=== PATIENT | male | born 1960 | race Caucasian/White ===

== ENCOUNTER 2024-02-16 15:08 | Outpatient (OUT) | payer MEDICARE, SELFPAY ==
--- NOTE | 2024-02-16 | CT_ITS ---
[address] [address] Patient Name: FELECIA BASS MRN: [id number] date: 1960 Sex: M Assigned Patient Location: CT Current Patient Location: CT Accession/Order Number: [id number] Exam Date: 02/16/2024 15:23 Report Date: 02/16/2024 16:46 At the request of: JULIETTE MILNER Procedure: CT lung screening low-dose EXAMINATION: CT lung screening low-dose HISTORY: F17.210 Previous smoker COMPARISON: / TECHNIQUE: Axial, Coronal, and Sagittal images were created without the administration of IV contrast material. Dose reduction techniques were achieved by using automated exposure control and/or adjustment of mA and/or kV according to patient size and/or use of iterative reconstruction technique. FINDINGS: LUNGS: Moderate diffuse peribronchial thickening. Stable biapical pleural parenchymal scarring. Stable scattered subcentimeter pulmonary nodules. Again demonstrated is a spiculated soft tissue density nodule extending from the right posterior pleura along the major fissure measuring 3.1 x 1.5 cm in axial image #77. PLEURA: No mass, effusion, or pneumothorax. VASCULATURE: No abnormality. LAURENT: No mass or pathologic adenopathy. MEDIASTINUM: No mass or pathologic adenopathy. CARDIAC: No enlargement or pericardial effusion CORONARY ARTERIES: Coronary calcifications are mild. AORTA: No aneurysm or dissection. CHEST WALL: No mass or axillary adenopathy BONES: Bilateral humeral head avascular necrosis LIMITED ABDOMEN: No suspicious findings. Limited images of the upper abdomen. OTHER: Negative. CT/CT lung screening low-dose IMPRESSION: LUNG SCREENING: Lung-RADS Category 2- Benign Appearance or Behavior. Nodules with a very low likelihood of becoming a clinically active cancer due to size or lack of growth. 2. Continue annual screening with LDCT in 12 months. Electronically authenticated by: MARSHA MCMILLAN Date: 02/16/2024 16:46
== END 2024-02-16 15:09 | disposition home or self-care (01) ==
LOC: CT 15:11
PROVIDERS: PCP Family Medicine; Visit Provider Family Medicine
DX: F17.210 Nicotine dependence, cigarettes, uncomplicated (principal)
CPT/HCPCS: 71271

== ENCOUNTER 2024-05-18 12:46 | Outpatient (OUT) | payer MEDICARE, SELFPAY ==
--- NOTE | 2024-05-18 12:56 | US_ITS ---
The [address] [address] Patient Name: FELECIA BASS MRN: [id number] date: 1960 Sex: M Assigned Patient Location: US Current Patient Location: Accession/Order Number: [id number] Exam Date: 05/18/2024 13:09 Report Date: 05/18/2024 15:06 At the request of: JULIETTE MILNER Procedure: US aorta CLINICAL DATA: Screening. PROCEDURE: Duplex Ultrasound of the Abdominal Aorta TECHNIQUE: Grayscale, color doppler, and spectral waveform analysis was performed COMPARISON: None. FINDINGS: Color flow was seen in the abdominal aorta. The waveform was multiphasic. Measurements as follows: Proximal Aorta: 2.7 x 2.8 cm. Mid Aorta: 2.8 x 2.2 cm. Distal Aorta: 2.5 x 2.0 cm. No iliac artery aneurysm was seen. US/US aorta IMPRESSION: No abdominal aortic aneurysm. Electronically authenticated by: Johnny ROJAS Date: 05/18/2024 15:06
--- OUTSIDE RECORDS SUMMARY | 2024-05-18 12:59 | XMS_ITS | CCD ---
Author Organization [facility] Care Team Providers Care Slip Presser Name Role Phone KRISSY JOHNSTON Attending Unavailable WEST, DR MARSHA Eli Consulting Unavailable FURLONG, DR SKIP [facility] Unavailable KRISSY JOHNSTON Admitting Unavailable KRISSY JOHNSTON Consulting Unavailable Furlong Skip NAYAK Primary Care Provider SKIP NAVAS Referring Unavailable FURLONG, SKIP [facility] Unavailable ROYA SESAY Referring Unavailable FURLONG, SKIP [facility] Unavailable FURLONG, SKIP [place] Attending Unavailable FURLONG, SKIP [place] Referring Unavailable FURLONG, SKIP [facility] Unavailable ROYA SESAY Attending Unavailable FURLONG, SKIP [place] Referring Unavailable FURLONG, SKIP [facility] Unavailable FURLONG, SKIP [place] Attending Unavailable FURLONG, SKIP [place] Referring Unavailable FURLONG, SKIP [place] Primary [facility] Unavailable FURLONG, SKIP [place] Attending Unavailable FURLONG, SKIP [place] Referring Unavailable FURLONG, SKIP [facility] Primary [facility] Unavailable FURLONG, SKIP [place] Attending Unavailable FURLONG, SKIP [place] Referring Unavailable FURLONG, SKIP G Primary Care Unavailable Medications Current Medications Medication Drug Class(es) Dates Sig (Normalized) Sig (Original) [id number] 200 actuat albuterol 0.09 mg/actuat metered dose inhaler (7 sources) beta2-Adrenergic Agonist Start: 09-12-2023 End: 11-10-2023 take 2 puff(s) by mouth every four hours as needed for wheezing VENTOLIN HFA 90 mcg/actuation inhaler Indications: Pulmonary emphysema, unspecified emphysema type ([facility]) INHALE 2 PUFFS BY MOUTH EVERY 4 HOURS NEEDED FOR WHEEZING FOR SHORTNESS OF BREATH 18 g 1 11/10/2023 Active ALPRAZolam 0.5 mg oral tablet (8 sources) Benzodiazepine Start: 07-30-2023 End: 12-02-2023 take 1 tablet by mouth three times daily as needed for anxiety ALPRAZolam (XANAX) 0.5 mg tablet Indications: Anxiety TAKE 1 TABLET BY MOUTH THREE TIMES DAILY NEEDED FOR ANXIETY 30 tablet 1 12/02/2023 Active aspirin 81 mg delayed release oral tablet (6 sources) Platelet Aggregation Inhibitor, Nonsteroidal Anti-inflammatory Drug take 1 tablet by mouth in the morning aspirin 81 mg Take 1 tablet (81 mg total) by mouth in the morning. 0 Active atorvastatin 40 mg oral tablet (6 sources) HMG-CoA Reductase Inhibitor Start: 11-11-2023 take 1 tablet by mouth in the morning atorvastatin (LIPITOR) 40 mg tablet Indications: Coronary arteriosclerosis Take 1 tablet (40 mg total) by mouth in the morning. 30 tablet 11 11/11/2023 Active Start: 07-16-2022 End: 11-10-2023 take 1 tablet by mouth in the morning atorvastatin (LIPITOR) 10 mg tablet Take 1 tablet (10 mg total) by mouth in the morning. 30 tablet 11 07/16/2022 11/10/2023 Discontinued (Patient Never Started This Medication) famciclovir 250 mg oral tablet (4 sources) Herpes Simplex Virus Nucleoside Analog DNA Polymerase Inhibitor Start: 11-10-2023 take 1 tablet by mouth in the morning, then take 1 tablet by mouth at bedtime famciclovir (FAMVIR) 250 mg tablet Indications: Herpes simplex Take 1 tablet (250 mg total) by mouth in the morning and 1 tablet (250 mg total) before bedtime. 0 11/10/2023 Active fluticasone-umeclid in-vilanter (TRELEGY ELLIPTA) 200-62.5-25 mcg blister with device (4 sources) Start: 11-10-2023 take 1 puff(s) by inhalation in the morning fluticasone-umecli din-vilanter (TRELEGY ELLIPTA) 200-62.5-25 mcg blister with device Indications: Pulmonary emphysema, unspecified emphysema type (CMS-HCC) Inhale 1 puff in the morning. 1 each 5 11/10/2023 Active traZODone hydrochloride 100 mg oral tablet (7 sources) Serotonin Reuptake Inhibitor Start: 07-30-2023 End: 11-02-2023 take 1 tablet by mouth once daily traZODone (DESYREL) 100 mg tablet Take 1 tablet by mouth nightly 30 tablet 2 11/02/2023 Active Completed/Discontinued Medications Medication Drug Class(es) Dates Sig (Normalized) Sig (Original) 30 actuat fluticasone furoate 0.1 mg/actuat / umeclidinium 0.0625 mg/actuat / vilanterol 0.025 mg/actuat dry powder inhaler (3 sources) Anticholinergic, Corticosteroid, beta2-Adrenergic Agonist Start: 08-09-2023 End: 11-10-2023 take 1 puff(s) by inhalation in the morning TRELEGY ELLIPTA 100-62.5-25 mcg blister with device Inhale 1 puff in the morning. 1 each 5 08/09/2023 11/10/2023 Discontinued (Dose adjustment) Problems Active Problems Problem Classification Problem Date Documented Date Episodic/Chronic Anxiety disorders (10 sources) Anxiety; Translations: [Anxiety disorder, unspecified] Onset: 07-12-2022 10-03-2023 Chronic Chronic obstructive pulmonary disease and bronchiectasis (10 sources) Pulmonary emphysema; Translations: [Emphysema, unspecified] Onset: 07-13-2022 01-24-2023 Chronic Coronary atherosclerosis and other heart disease (10 sources) Coronary arteriosclerosis; Translations: [Atherosclerotic heart disease of [place] coronary artery without angina pectoris] Onset: 10-13-2022 10-13-2022 Chronic Other lower respiratory disease (4 sources) Lung mass; Translations: [Other nonspecific abnormal finding of lung field] Onset: 11-10-2023 11-10-2023 Episodic Other screening for suspected conditions (not mental disorders or infectious disease) (5 sources) Encounter for screening for malignant neoplasm of respiratory organs; Translations: [Encounter for screening for cardiovascular disorders] Onset: 01-26-2023 Episodic Screening and history of mental health and substance abuse codes (1 source) Encounter for screening for depression; Translations: [Encounter for screening for depression] Onset: 05-10-2024 Episodic Substance-related disorders (9 sources) Nicotine dependence, cigarettes, uncomplicated; Translations: [Nicotine dependence] Onset: 07-13-2022 10-13-2022 Chronic Unclassified (2 sources) Supraventricular tachycardia, unspecified; Translations: [Supraventricular tachycardia, unspecified] Onset: 11-10-2023 Unclassified (1 source) Annual Exam Onset: 05-10-2024 Unclassified (1 source) 3 Month follow up Onset: 02-09-2024 Unclassified (1 source) Suspicious Skin Lesion Onset: 11-29-2023 Past or Other Problems Problem Classification Problem Date Documented Da te Episodic/Chronic Cardiac dysrhythmias (11 sources) Supraventricular tachycardia; Translations: [SVT (supraventricular tachycardia)] Onset: 2 Resolved: 4 07-12-2022 Chronic Mood disorders (6 sources) Mood disorders Onset: 3 Resolved: 4 08-09-2023 Neoplasms of unspecified nature or uncertain behavior (3 sources) Neoplasm of uncertain behavior of skin; Translations: [Neoplasm of uncertain behavior of skin] Onset: 4 11-10-2023 Episodic Phlebitis; thrombophlebitis and thromboembolism (4 sources) Deep venous thrombosis; Translations: [Acute embolism and thrombosis of unspecified deep veins of unspecified lower extremity] Onset: 4 Resolved: 4 11-10-2023 Episodic Pulmonary heart disease (6 sources) Acute pulmonary embolism; Translations: [Other pulmonary embolism without acute cor pulmonale] Onset: 4 Resolved: 4 11-10-2023 Episodic Residual codes; unclassified (6 sources) Persistent insomnia; Translations: [Insomnia, unspecified] Onset: 2 07-12-2022 Episodic Residual codes; unclassified (6 sources) Lung cancer screening declined; Translations: [Procedure and treatment not carried out because of patient's decision for unspecified reasons] Onset: 3 Resolved: 4 10-13-2022 Episodic Residual codes; unclassified (1 source) Insomnia, unspecified; Translations: [Insomnia, unspecified] Onset: 2 Episodic Unclassified (6 sources) Onset: 3 12-30-2022 Viral infection (7 sources) Herpes simplex; Translations: [Herpesviral infection, unspecified] Onset: 3 10-13-2022 Episodic Results Test Name Value Interpretation Reference Range Facility Surgical Pathologyon 024 Surgical Pathology Normal [facility] Comment on above: Result Comment: [facility] [address] [place] [address] Surgical Pathology Consultation Patient Name:FELECIA CUNHA:1960 (Age: 63)Gender:MTaken:11/29/2023eported:12/06/2023hysician(s):James Sesay MD ([phone])Copy To: Rec. #:[id number]: #[id number] Final Pathologic Diagnosis Left buttock: Traumatized seborrheic keratosis and granulation tissue. Clinical correlation is indicated. NOTE: The above diagnosis is from [facility]. Please see the complete text of their report in the patient???s electronic medical record. Report Electronically Signed Out [facility]/12/06/2023Roxy Harvey MD Interpretation performed at [facility], [address] [place] [address], License number: [id number]. Clinical History Neoplasm of uncertain behavior of skin D48.5. Left buttock skin lesion. Gross Description Received in formalin labeled SHELIA, left buttock skin lesion is a hong-nunn to purple, wrinkled, unoriented ellipse of skin, 1.4 x 0.7 cm, excised to a depth of 0.5 cm. Eccentrically located on the skin is a hong-nunn, crusted raised lesion, 0.4 x 0.3 x 0.2 cm that is situated 0.2 cm from the closest margin. One half of the specimen is inked orange with the opposing half inked black. Serial sections reveal hong-nunn, fibrous, dull and uniform cut surfaces with the deep margin situated 0.5 cm from the skin lesion. The polar tips are submitted intact in cassette A with the remainder of the specimen submitted in cassette B???C. (3, ns, [id number], A???C, m2) BRIDGER smith/11/30/2023EAK Specimen(s) Received Left buttock Fee Codes(s): 1; 81775 Comprehensive metabolic pane donato 11-11-2023 Albumin [Mass/Vol] 3.7 g/dL 3.2 - 5.3 g/dL Pr [facility] ALP [Catalytic activity/Vol] 115 U/L 39 - 130 U/L [facility] ALT No additional P-5'-P [Catalytic activity/Vol] 10 U/L 0 - 40 U/L [facility] Anion gap [Moles/Vol] 5 mmol/L 5 - 15 mmol/L [facility] AST [Catalytic activity/Vol] 14 U/L 0 - 41 U/L [facility] Bilirubin [Mass/Vol] 0.5 mg/dL 0.3 - 1 .2 mg/dL [facility] Calcium [Mass/Vol] 8.7 mg/dL 8.5 - 10. 5 mg/dL [facility] Chloride [Moles/Vol] 104 mmol/L 98 - 10 9 mmol/L [facility] CO2 [Moles/Vol] 30 mmol/L 22 - 32 mmol/L [facility] Creatinine [Mass/Vol] 0.92 mg/dL 0.60 - 1.30 mg/dL [facility] Comment on above: METHOD TRACEABLE TO [facility] STANDARD eGFR (CKD-EPI)non-race dependent - PINF [facility] Comment on above: Reported eGFR is based on the CKD-EPI 2020 equation that does not use a race coefficient. Glucose [Mass/Vol] 93 mg/dL 65 - 99 mg/dL [facility] Potassium [Moles/Vol] 4.4 mmol/L 3.5 - 5.0 mmol/L [facility] Protein [Mass/Vol] 6.8 g/dL 6.0 - 8.0 g/dL Pr [facility] Sodium [Moles/Vol] 139 mmol/L 134 - 146 mmol/L [facility] Urea nitrogen [Mass/Vol] 11 mg/dL 5 - 27 mg/dL [facility] Lipid 1996 panelon Cholesterol [Mass/Vol] 134 mg/dL Low 150 - 200 mg/dL [facility] Cholesterol in HDL [Mass/Vol] 38 mg/dL Low 39 - PINF mg/dL [facility] Comment on above: HDL <40 mg/dL - High Risk HDL > or = 40mg/dL- Desirable HDL >60 mg/dL - Negative Risk Cholesterol in LDL [Mass/Vol] 67 mg/dL NINF - 130 mg/dL [facility] Comment on above: LDL <100 mg/dL - Desirable LDL >160 mg/dL - High Risk Cholesterol in VLDL [Mass/Vol] 29 mg/dL 0 - 30 mg/dL [facility] Cholesterol.total/Ch olesterol in HDL [Mass ratio] 3.5 {ratio} 1.0 - 5.0 [facility] Interpretation and review of laboratory results Abnormal [facility] Triglyceride [Mass/Vol] 146 mg/dL 27 - 150 mg/dL [facility] No Panel Informationon 11-11 [facility] COMPREHENSIVE METABOLIC PANE Donato 11-10-2023 Albumin [Mass/Vol] 3.7 g/dL Normal 3.2-5.3 [facility] Comment on above: Performed By: #### Amadou CALLAHAN, 35675-5 #### [facility] ([id number]) [address], [address] [place] [address] ALP [Catalytic activity/Vol] 115 U/L Normal 39-130 [facility] Comment on above: Performed By: #### Amadou CALLAHAN, 00806-4 #### [facility] ([id number]) [address], [address] [place] [address] ALT [Catalytic activity/Vol] 10 U/L Normal 0-40 [facility] Comment on above: Performed By: #### Amadou CALLAHAN, 18600-8 #### [facility] ([id number]) [address] [place] [address] Anion gap [Moles/Vol] 5 mmol/L Normal 5-15 [facility] Comment on above: Performed By: #### Amadou CALLAHAN, 85781-5 #### [facility] ([id number]) [address] [place] [address] AST [Catalytic activity/Vol] 14 U/L Normal 0-41 [facility] Comment on above: Performed By: #### Amadou CALLAHAN, 71494-0 #### [facility] ([id number]) [address], [address] [place] [address] Bilirubin [Mass/Vol] 0.5 mg/dL Normal 0.3-1.2 [facility] Comment on above: Performed By: #### Amadou CALLAHAN, 12185-8 #### [facility] ([id number]) [address] [place] [address] Calcium [Mass/Vol] 8.7 mg/dL Normal 8.5-10.5 [facility] Comment on above: Performed By: #### Amadou CALLAHAN, 09326-7 #### [facility] ([id number]) [address], [address] [place] [address] Chloride [Moles/Vol] 104 mmol/L Normal 98-109 [facility] Comment on above: Performed By: #### Amadou CALLAHAN, 39679-8 #### [facility] ([id number]) [address], [address] [place] [address] CO2 [Moles/Vol] 30 mmol/L Normal 22-32 [facility] Comment on above: Performed By: #### Amadou CALLAHAN, 57792-3 #### [facility] ([id number]) [address] [place] [address] Creatinine [Mass/Vol] 0.92 mg/dL Normal 0.60-1.30 [facility] Comment on above: Result Comment: METH OD TRACEABLE TO IDMS STANDARD Performed By: #### Amadou CALLAHAN, 63788-2 #### [facility] ([id number]) [address], [address] [place] [address] eGFR (CKD-EPI) NON-RACE DEPENDENT >90 Normal >59 [facility] Comment on above: Result Comment: Reported eGFR is based on the CKD-EPI 2020 equation that does not use a race coefficient. Performed By: #### Amadou CALLAHAN, 66870-5 #### [facility] ([id number]) [address], [address] [place] [address] Glucose [Mass/Vol] 93 mg/dL Normal 65-99 [facility] Comment on above: Performed By: #### Amadou CALLAHAN, 43122-4 #### [facility] ([id number]) [address] [place] [address] Potassium [Moles/Vol] 4.4 mmol/L Normal 3.5-5.0 [facility] Comment on above: Performed By: #### Amadou CALLAHAN, 34324-8 #### [facility] ([id number]) [address], [address] [place] [address] Protein [Mass/Vol] 6.8 g/dL Normal 6.0-8.0 [facility] Comment on above: Performed By: #### Amadou CALLAHAN, 50362-8 #### [facility] ([id number]) [address] [place] [address] Sodium [Moles/Vol] 139 mmol/L Normal 134-146 [facility] Comment on above: Performed By: #### Amadou CALLAHAN, 09135-4 #### [facility] ([id number]) [address], [address] [place] [address] Urea nitrogen [Mass/Vol] 11 mg/dL Normal 5-27 [facility] Comment on above: Performed By: #### C LONDON, 35285-6 #### [facility] ([id number]) [address], [address] [place] [address] Lipid 1996 panelon 4 Cholesterol [Mass/Vol] 134 mg/dL Low 150-200 [facility] Comment on above: Performed By: #### Amadou CALLAHAN, 52150-3 #### [facility] ([id number]) [address], [address] [place] [address] Cholesterol in HDL [Mass/Vol] 38 mg/dL Low >39 [facility] Comment on above: Result Comment: HDL <40 mg/dL - High Risk HDL > or = 40mg/dL- Desirable HDL >60 mg/dL - Negative Risk Performed By: #### Amadou CALLAHAN, 69214-9 #### [facility] ([id number]) [address], [address] [place] [address] Cholesterol in LDL [Mass/Vol] 67 mg/dL Normal <130 [facility] Comment on above: Result Comment: LDL <100 mg/dL - Desirable LDL >160 mg/dL - High Risk Performed By: #### Amadou CALLAHAN, 84220-5 #### [facility] ([id number]) [address], [address] [place] [address] Cholesterol in VLDL [Mass/Vol] 29 mg/dL Normal 0-30 [facility] Comment on above: Performed By: #### Amadou CALLAHAN, 35803-0 #### [facility] ([id number]) [address], [address] [place] [address] CHOLESTEROL:HDL 3.5 Normal 1.0-5.0 [facility] Comment on above: Performed By: #### C LONDON, 04557-3 #### [facility] ([id number]) [address], [address] [place] [address] Triglyceride [Mass/Vol] 146 mg/dL Normal 27-150 [facility] Comment on above: Performed By: #### C LONDON, 17785-7 #### [facility] ([id number]) [address], [address] [place] [address] CT LUNG CANCER SCREENINGon 0 01-27-2023 CT LUNG CANCER SCREENING EXAMINATION: CT LUNG CANCER SCREENING HISTORY: Screening for malignant neoplasm of respiratory tract COMPARISON: No relevant comparison available. TECHNIQUE: Axial, Coronal, and Sagittal images were created without the administration of IV contrast material. Dose reduction techniques were achieved by using automated exposure control and/or adjustment of mA and/or kV according to patient size and/or use of iterative reconstruction technique. FINDINGS: LUNGS: Stable diffuse mild peribronchial thickening. Biapical pleural parenchymal opacities likely scarring. Again demonstrated is a wedge-shaped area of soft tissue attenuation in the right upper lobe marginating the major fissure stable both in size and configuration from the prior exam. Additional punctate pulmonary nodules are stable the largest 5 mm left upper lobe. No new pulmonary nodule or mass PLEURA: No mass, effusion, or pneumothorax. VASCULATURE: No abnormality. LAURENT: No mass or pathologic adenopathy. MEDIASTINUM: No mass or pathologic adenopathy. CARDIAC: No enlargement or pericardial effusion. Mild coronary atherosclerosis AORTA: No aneurysm or dissection. CHEST WALL: No mass or axillary adenopathy BONES: No bone lesion or fracture. LIMITED ABDOMEN: No suspicious findings. Limited images of the upper abdomen. OTHER: Negative. IMPRESSION: LUNG SCREENING: Lung-RADS Category 2- Benign Appearance or Behavior. Nodules with a very low likelihood of becoming a clinically active cancer due to size or lack of growth. 2. Continue annual screening with LDCT in 12 months. Electronically authenticated by: MARSHA MCMILLAN Date: 2023-01-27 07:50 Normal [facility] Vital Signs Date Time Vital Sign Value Performing Clinician Monae banks 11-10-2023 13:49-0500 Body height 180.3 cm Skip Navas DO [facility] 11-10-2023 13:49-0500 Body mass index (BMI) [Ratio] 21.35 kg/m2 [employer] DO Work Phone: [facility] 11-10-2023 13:49-0500 Body temperature 98.2 [degF] Skip [employer] Work Phone[facility] 11-10-2023 13:49-0500 Body weight 69.45 kg [employer]Kabbee Work Phone: [facility] 11-10-2023 13:49-0500 Diastolic blood pressure 60 mm[Hg] Skip [employer] Work [facility] 11-10-2023 13:49-0500 Heart rate 78 /min SkipKabbee Work Phone: [facility] [employer] 11-10-2023 13:49-0500 SaO2% (BldA) [Mass fraction] 94 % [employer]ab[employer] Work Phone: [facility] 11-10-2023 13:49-0500 Systolic blood pressure 98 mm[Hg] [employer]Kabbee Work Phone: [facility] [employer] [facility] Encounters Encounter Date Encounter Type Care Provider Facility Start: 05-10-2024 End: 05-10-2024 ambulatory [facility] Start: 05-10-2024 Encounter for genera l adult medical examination without abnormal findings [facility] Start: 02-09-2024 End: 02-09-2024 ambulatory [facility] Start: 12-07-2023 [facility] Start: 12-02-2023 Refill Hue Lombardi [facility] Comment on above: Anxiety Start: 11-29-2023 End: 11-30-2023 ambulatory [facility] Start: 11-29-2023 End: 11-29-2023 ambulatory [facility] Start: 11-16-2023 End: 11-17-2023 ambulatory [facility] Start: 11-11-2023 Orders Only Skip mariano DO Work Phone[facility] Comment on above: Coronary arterioscle rosis (Primary Dx) Start: 11-10-2023 End: 11-10-2023 Office outpatient visit 25 minutes Skip Navas DO Work Phone: [facility] Comment on above: Pulmonary emphysema, unspecified emphysema type (CMS-HCC) (Primary Dx); Anxiety; Other acute pulmonary embolism, unspecified whether acute cor pulmonale present ([facility]); Supraventricular tachycardia; Coronary arteriosclerosis; Cigarette smoker; Neoplasm of uncertain behavior of skin; Herpes simplex Start: 11-10-2023 End: 11-11-2023 ambulatory [facility] Start: 11-02-2023 Refill Skip mariano DO Work Phone[facility] Start: 10-03-2023 Refill Hue Lombardi CMA [facility] - [facility] Medicine Comment on above: Anxiety Start: 01-26-2023 End: 01-27-2023 ambulatory KRISSY JOHNSTON Facility:[facility]1 Procedures Date Procedure Procedure Detail Performing Clinician Start: 11-10-2023 Adult depression screening assessment Skip Navas DO Work Phone: Start: 08-09-2023 Adult depression screening assessment Hue Lombardi CMA Plan of Treatment Date Care Activity Detail Author Start: 04-27-2033 DTaP,Tdap and Td Vaccines (2 - Td or Tdap) DTaP,Tdap and Td Vaccines (2 - Td or Tdap) [facility] Start: 07-09-2025 Screening for malign ant neoplasm of colon Colon Cancer Screening 3 Year Cologuard [facility] Start: 05-10-2025 Tobacco Counseling Tobacco Counselin g [facility] Start: 02-06-2025 Tobacco Counseling Tobacco Counselin g [facility] Start: 2024 Adult BMI Screening Adult BMI Screen ing [facility] Start: 2024 Tobacco Screening Tobacco Screening [facility] Start: 11-10-2024 Adult BMI Screening Adult BMI Screen ing [facility] Start: 11-10-2024 Depression Screening Depression Scre ening [facility] Start: 11-10-2024 Tobacco Screening Tobacco Screening [facility] Start: 08-09-2024 Adult BMI Screening Adult BMI Screen ing [facility] Start: 08-09-2024 Depression Screening Depression Scre ening [facility] Start: 08-09-2024 Fall Risk Screening Fall Risk Screen ing [facility] Start: 08-09-2024 Tobacco Screening Tobacco Screening [facility] Start: 02-09-2024 End: 02-09-2024 Patient encounter procedure 02/09/2024 1:30 PM EDT Office Visit [facility] Internal Medicine - Family Medicine [address] [place] [address] Skip Navas, DO [address] [facility] [place] [address] [facility] - Family Medicine Start: 12-31-2023 Medicare Annual Well ness Visit Medicare Annual Wellness Visit [facility] Start: 11-29-2023 End: 11-29-2023 Patient encounter procedure 11/29/2023 10:30 AM EST Office Visit [facility] General [facility] [address] [place] [address] Roya Sesay MD [address] [place] [address] [facility] Start: 11-16-2023 End: 11-16-2023 Patient encounter procedure 11/16/2023 9:30 AM EST Appointment [facility] - Pulmonary Function [address] [place] [address] Skip Navas DO [address] [place] [address] [facility] - Pulmonary Function Start: 11-10-2023 End: 11-10-2023 Patient encounter procedure 11/10/2023 1:30 PM EST [facility] - Family Medicine [address] [place] [address] Skip Navas DO [address] [facility] [place] [address] [facility] - [facility] Medicine Start: 05-27-2023 COVID-19 Vaccine () COVID-19 Vaccine () [facility] Start: 05-27-2023 Influenza vaccination Influenza Vacc ine [facility] Start: 01-31-2021 COVID-19 Vaccine (3 - Pfizer risk series) COVID-19 Vaccine (3 - Pfizer risk series) [facility] End: 11-10-2024 Pulmonary function test Complete PFT w/ BD (Spirometry (Flow Volume Loop) pre/post short acting bronchodilator w/ DLCO (diffusion study) and Lung Volume) Pulmonary function test Complete PFT w/ BD (Spirometry (Flow Volume Loop) pre/post short acting bronchodilator w/ DLCO (diffusion study) and Lung Volume) PFT Routine Pulmonary emphysema, unspecified emphysema type ([facility]) 1 Occurrences starting 11/10/2023 until 11/10/2024 [facility] Work Phone: Comment on above: 1 Occurrences starti ng 11/10/2023 until 11/10/2024 Immunizations Immunization Date Immunization Notes Care Provider Fa cility 06-30-2023 zoster vaccine recombinant Skip Navas DO Work Phone: [facility] 04-27-2023 tetanus toxoid, redu ray diphtheria toxoid, and acellular pertussis vaccine, adsorbed Skip Navas DO Work Phone: [facility] 04-13-2023 zoster vaccine recombinant Skip Navas DO Work Phone: [facility] 03-26-2023 Pneumococcal Conjuga te 20-valent Skip Navas DO Work Phone: [facility] 06-16-2020 influenza, injectabl e, quadrivalent, preservative free [facility] Work Phone: 06-16-2020 influenza virus vaccine, unspecified formulation [facility] 08-30-2019 Seasonal, quadrivale nt, recombinant, injectable influenza vaccine, preservative free [facility] 07-06-2016 influenza, injectabl e, quadrivalent, preservative free [facility] 08-07-2015 influenza, injectabl e, quadrivalent, preservative free [facility] 09-15-2009 novel [id number], preservative-free, injectable [facility] Payers Date Payer Category Payer Medicare [employer] MEDICARE [facility] MEDICARE ADVANTAGE [id number] 2022-Present [phone] [address] [place] [address] [id number] 1961 Unknown [id number] 1960 Unknown [id number] 1960 Unknown [id number] 6 1960 Unknown [id number] 6 1960 Unknown [id number] 6 1960 Unknown [id number] 6 1960 Unknown [id number] 6 1960 Unknown [id number] 6 1960 Unknown [id number] 6 Social History Date Type Detail Facility Start: 10-13-2022 Tobacco smoking stat [facility] Smokes tobacco daily [facility] History of tobacco use Cigarette Smoker [facility] Start: 10-13-2022 End: 11-29-2023 Cigarettes smoked current (pack per day) - Reported 1 [facility] Start: 10-13-2022 Tobacco use and exposure Smoke less tobacco non-user [facility] Start: 08-09-2023 End: 11-29-2023 Alcohol intake Current drinker of alcohol (finding) [facility] Start: 10-13-2022 End: 11-29-2023 Social connection and isolation panel [facility] Do you belong to any clubs or organizations such as buddhism groups, unions, fraternal or athletic groups, or school groups? No [facility] Are you now , , , , never or living with a partner? [facility] How often to you hav e a drink containing alcohol? 4 or more times a week [facility] How many standard dr inks containing alcohol do you have on a typical day? 1 or 2 [facility] How often do you hav e 6 or more drinks on 1 occasion? Less than monthly [facility] How hard is it for y ou to pay for the very basics like food, housing, medical care, and heating Somewhat hard [facility] Adolescent depressio n screening assessment 0 [facility] Do you feel stress - tense, restless, nervous, or anxious, or unable to sleep at night because your mind is troubled all the time - these days [OSQ] To some extent [facility] Start: 10-13-2022 Tobacco Comment Pt tried and f brent gum and patches [facility] Start: 1960 Sex Assigned At Not on file [facility] Clinical Notes 11-10-2023 to 12-07-2023 Telephone Encounter - Patricia Cardenas CMA - 12/07/2023 12:02 PM EDTTelephone Encounter - Patricia Cardenas, ABBY - 12/07/2023 12:02 PM EDTTelephone Encounter - Patricia Cardenas CMA - 12/07/2023 12:02 PM EDT Note Date & Type Note Facility 12-07-2023 Miscellaneous Notes ----- Message from Roya Sesay MD sent at 12/06/2023 6:33 PM EDT ----- Regarding: Pathology Please let patient know that lesion removed was benign seborrheic keratosis. Follow-up as needed. Thank you ----- Message ----- From: Maribel Ragland Sent: 12/06/2023 2:13 PM EDT To: Roya Sesay MD Spoke with patient regarding pathology results. Patient verbally understood with no further questions. documented in this encounter [facility] 12-07-2023 Telephone encounter Note ----- Message from Roya Sesay MD sent at 12/06/2023 6:33 PM EDT ----- Regarding: Pathology Please let patient know that lesion removed was benign seborrheic keratosis. Follow-up as needed. Thank you ----- Message ----- From: Maribel Ragland Sent: 12/06/2023 2:13 PM EDT To: Roya Sesay MD [facility] 12-07-2023 Telephone encounter Note Spoke with patient regarding pathology results. Patient verbally understood with no further questions. [facility] 11-10-2023 History of Presen t illness Narrative Subjective Patient ID: Felecia Cunha is a 62 y.o. male. Gregory presents today for recheck of multiple problems. He also has a new problem he would like to discuss. He needs a refill of his Ventolin inhaler. He is using it multiple times a day. Does provide relief. Used an 18 g canister in 1 month. He does not think he has ever had pulmonary function studies. He did have a spirometry her here which was abnormal in 2020. It showed severe obstruction with a positive response to a bronchodilator. He continues to smoke. He has tried various mjwf-nmr-xjfcfnt medications to stop like patches and lozenges but they were ineffective. He has a sore on his left buttock. It comes and goes. It breaks open and he puts Neosporin on it. It is tender. He is using Xanax once a day usually prior to bedtime. It helps with his sleep. He wakes up feeling more refreshed in the morning. He has not having any side effects. Is improving his quality of life. He would like to continue. COPD Primary symptoms: cough, dyspnea on exertion, shortness of breath, sputum production and wheezing Primary symptoms: no difficulty breathing, no dyspnea at rest and no hemoptysis Chronicity: Chronic Onset: More than 1 year ago Frequency: 2 to 4 times per day Progression since onset: Unchanged Severity: Severe Cough characteristics: productive of sputum Associated symptoms: no dyspnea at rest Alleviated by: Steroid inhaler, beta-agonist and anxiolytics Improvement on treatment: Significant Lung disease risks: Smoking/tobacco exposure PMH includes: COPD and smoker The following portions of the patient's history were reviewed and updated as appropriate: allergies, current medications, past family history, past medical history, past social history, past surgical history, problem list, and medication reconciliation was completed including current medication and post discharge medication. Review of Systems Respiratory: Positive for cough, sputum production, shortness of breath and wheezing. Negative for hemoptysis. Cardiovascular: Positive for dyspnea on exertion. Musculoskeletal: Negative. Skin: Positive for wound. Neurological: Negative. Psychiatric/Behavioral: Positive for sleep disturbance. Objective Physical Exam Lane Attendant present: declined. Constitutional: General: He is not in acute distress. Appearance: He is normal weight. HENT: Head: Normocephalic. Cardiovascular: Rate and Rhythm: Normal rate and regular rhythm. Pulses: Normal pulses. Heart sounds: Normal heart sounds. No murmur heard. Pulmonary: Effort: Pulmonary effort is normal. No respiratory distress. Breath sounds: No stridor. Wheezing present. No rhonchi or rales. Abdominal: General: Bowel sounds are normal. Palpations: Abdomen is soft. Musculoskeletal: Cervical back: Neck supple. Skin: Findings: Lesion (hard white nodule on left buttock, slightly tender) present. Neurological: General: No focal deficit present. Mental Status: He is alert and oriented to person, place, and time. Psychiatric: Attention and Perception: Attention normal. Mood and Affect: Mood and affect normal. Speech: Speech normal. Behavior: Behavior normal. Behavior is cooperative. Thought Content: Thought content normal. Cognition and Memory: Cognition normal. Judgment: Judgment normal. Assessment/Plan Felecia was seen today for copd. Diagnoses and all orders for this visit: Pulmonary emphysema, unspecified emphysema type ([facility]) - yyjpuirmgpn-hdizmmbfa-dhbegeze (TRELEGY ELLIPTA) 200-62.5-25 mcg blister with device; Inhale 1 puff in the morning. - VENTOLIN HFA 90 mcg/actuation inhaler; INHALE 2 PUFFS BY MOUTH EVERY 4 HOURS NEEDED FOR WHEEZING FOR SHORTNESS OF BREATH - Pulmonary function test Complete PFT w/ BD (Spirometry (Flow Volume Loop) pre/post short acting bronchodilator w/ DLCO (diffusion study) and Lung Volume); Future - albuterol (PROVENTIL,VENTOLIN) nebulizer solution 2.5 mg Patient is not under control with his COPD. I am going to increase his Trelegy to 200 mg 1 puff daily. Renew Ventolin inhaler. I am going to check formal PFTs in the hospital. Smoking cessation was strongly encouraged. Anxiety Doing well on Xanax 1 a day. He uses it mostly prior to bedtime. He has not having any side effects. It is providing improvement in quality of life and sleep. Continue current regimen. The OARRS/MAPPS database was reviewed today and found to be appropriate. No indication of medication diversion, or non compliance. Other acute pulmonary embolism, unspecified whether acute cor pulmonale present ([facility]) Stable. Supraventricular tachycardia - Comprehensive metabolic panel; Future No episodes since he had heart procedure years ago. Coronary arteriosclerosis - Cancel: Lipid panel; Future - Comprehensive metabolic panel; Future - Lipid panel; Future He never started the atorvastatin back in 2021. He should have been on high dose statin as he said he did have a heart attack in 2007. That is when he went on disability. He is not ever seen a misdraw hand since according to him. Continue aspirin. Check labs. Cigarette smoker Patient encouraged to quit smoking. We did discuss medications. There is a medication called Chantix available that is a prescription. We did discussed side effects. He defers the medication at this time. He has cut back to less than a pack a day on his own and wants to try to continue. At least 3 minute spent counseling. Neoplasm of uncertain behavior of skin - [facility] General Surgery - [place], [place]; Future Not clear what this lesion is but since it recurs and has been there for over a month then it should be removed. I will refer him to General surgery. Herpes simplex - famciclovir (FAMVIR) 250 mg tablet; Take 1 tablet (250 mg total) by mouth in the morning and 1 tablet (250 mg total) before bedtime. documented in this encounter [facility] 11-10-2023 Instructions Skip Navas DO - 11/10/2023 1:30 PM EST Are You Ready To Kick The Habit? Free Tobacco Cessation Resources [facility] Services [facility] Centers provide all employees with free tobacco cessation services that include: Counseling to understand nicotine addiction Education about medications that can help you successfully quit Assistance with developing a plan to quit Call to set up an individual appointment or find out when group classes will be held: [facility]: [phone] [facility]: [phone] [facility]: [phone] [facility]: [phone] Quit Smoking Action Plan and Resources [facility] offers an eight-week, online smoking cessation plan to all [facility] employees, regardless of whether [employer] is your medical insurance provider. Go to www.[employer]org/employeewell ness and click the Health Risk Assessment and Resources link to get started. In the [employer] menu, click Action Plans instead of Health Risk Assessment to access the Quit Smoking Action Plan. Additional smoking cessation resources are also available to all [facility] employees on the [employer] web page at www.I'mOK/quit smoking. [place] Tobacco Cessation Program If [employer] is your medical insurance provider, there are more free resources available to you, including: No copays or deductibles on local tobacco cessation counseling services to help you quit Prescription assistance for tobacco cessation medications to help you quit For details about the tobacco cessation program available to [employer] members, go to www.I'mOK (Search: Tobacco Cessation Program). [place] Tobacco Quit Line 5-185-BFUR-NOW ( ) is a toll-free, telephonic service that helps [place] residents quit smoking and using tobacco. It is staffed by experts who tailor a quit plan for you and provide you with advice. [place] Tobacco Quit Line 2-815-GWWF-NOW ( ) is a toll-free, telephonic service that helps [place] residents quit smoking and using tobacco. It is staffed by experts who tailor a quit plan for you and provide you with advice. Two weeks of nicotine replacement therapy may be provided at no charge, if needed. Additional Resources These national organizations also offer free information and resources to help you quit tobacco: [place] [employer]--www.cancer.org/healthy/ stayawayfromtobacco [place] [employer]--www.heart.org (Search: Quit Smoking) Centers for Disease Control and Prevention--www.cdc.gov/tobacco [place] [employer]--www.lungusa.org documented in this encounter [facility] Evaluation note Diagnosis Anxiety Anxiety state, unspecified documented in this encounter [facility]* Diagnosis Pulmonary emphysema, unspecified emphysema type ([facility])- Primary Anxiety Anxiety state, unspecified Other acute pulmonary embolism, unspecified whether acute cor pulmonale present ([facility]) Supraventricular tachycardia Other specified cardiac dysrhythmias Coronary arteriosclerosis Coronary atherosclerosis of unspecified type of vessel, [place] or graft Cigarette smoker Tobacco use disorder Neoplasm of uncertain behavior of skin Herpes simplex Herpes simplex without mention of complication documented in this encounter [facility]* Diagnosis Coronary arteriosclerosis- Primary Coronary atherosclerosis of unspecified type of vessel, [place] or graft documented in this encounter [facility]* Diagnosis Anxiety Anxiety state, unspecified documented in this encounter [facility] SystemInstructionsNot on filedocumented in this encounter [facility] System[facility]ructionsNot on filedocumented in this encounter [facility] SystemInstructionsNot on filedocumented in this encounter [facility] SystemInstructionsNot on filedocumented in this encounter [facility] SystemInstructionsNot on filedocumented in this encounter [facility] SystemReason for referral (narrative)* Consultation (Routine) - Pending Review Specialty Diagnoses / Procedures Referred By Sejal castorena Referred To Contact General Surgery Diagnoses Neoplasm of uncertain behavior of skin Skip Navas DO [address] [facility] [place] [address] [employer] [facility] Gen Surg Grillis Lázaro [address] [place] [address] Referral ID Status Reason Start Date Expiration Date Visits Requested Visits Authorized [id number] Pending Review Specialty Services Required 11/10/2023 11/09/2024 1 1 [facility] Summary Purpose Family History No Family History Records FoundNo Family History Records FoundNo Family History Records FoundNo Family History Records Found Advance Directives No Advanced Directives Records FoundNo Advanced Directives Records FoundNo Advanced Directives Records FoundNo Advanced Directives Records Found Additional Source Comments (unrecognized sect ion and content) No Status Records FoundNo Status Records FoundNo Status Records FoundNo Status Records Found INFORMATION SOURCE (unrecogn ized section and content) DATE CREATED AUTHOR 02/03/2023 [facility] DATE CREATED AUTHOR AUTHOR'S ORGANIZ ATION 11/12/2023 [facility] DATE CREATED AUTHOR AUTHOR'S ORGANIZ ATION 12/07/2023 [facility] DATE CREATED AUTHOR AUTHOR'S ORGANIZ ATION 05/12/2024 [facility] Reason for Visit (unrecogniz ed section and content) Reason Onset Date Comments Med Refill 10/03/2023 Reason Comments Med Refill Reason Comments COPD 3 month check Reason Onset Date Comments Med Refill 12/02/2023 Care Teams (unrecognized sec tion and content) Slip Presser Relationship Specialty Start Date End Date Skip Navas DO [address] [place] [address] PCP - General Family Medicine 07/12/22 Slip Presser Relationship Specialty Start Date End Date Skip Navas DO [address], [place] [address] PCP - General Family Medicine 07/12/22 Slip Presser Relationship Specialty Start Date End Date Skip Navas DO [address] [place] [address] PCP - General Family Medicine 07/12/22 Slip Presser Relationship Specialty Start Date End Date Skip Navas DO [address] [place] [address] PCP - General Family Medicine 07/12/22 Slip Presser Relationship Specialty Start Date End Date Skip Navas DO [address], [place] [address] PCP - General Family Medicine 07/12/22 Slip Presser Relationship Specialty Start Date End Date Skip Navas DO [address], [place] [address] PCP - General Family Medicine 07/12/22 FOR RECORDS PERTAINING TO PATIENTS WHO ARE OR HAVE BEEN ENROLLED IN A CHEMICAL DEPENDENCY/SUBSTANCEABUSE PROGRAM, SOME INFORMATION MAY BE OMITTED. This clinical summary was aggregated from multiple sources. Caution should be exercised in using it in the provision of clinical care. This summary normalizes information from multiple sources, and as a consequence, information in this document may materially change the coding, format and clinical context of patient data. In addition, data may be omitted in some cases. CLINICAL DECISIONS SHOULD BE BASED ON THE PRIMARY CLINICAL RECORDS. [employer] [facility]. provides no warranty or guarantee of the accuracy or completeness of information in this document.
== END 2024-05-18 12:47 | disposition home or self-care (01) ==
LOC: US 12:47
PROVIDERS: PCP Family Medicine; Visit Provider Family Medicine
DX: Z13.6 Encounter for screening for cardiovascular disorders (principal)
CPT/HCPCS: 76706

== ENCOUNTER 2024-10-29 12:47 | Observation (INO) | payer OTHER, SELFPAY ==
[2024-10-29] VITALS (31 sets, daily range): BP systolic 78–132; BP diastolic 54–81; PULSE 85–142; TEMP 36.8–38.1; O2SAT 89–98; BMI 23.6; BMI 21.3
--- NOTE | 2024-10-29 12:52 | ECG_ITS ---
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
--- NOTE | 2024-10-29 12:53 | ED_ITS ---
HPI HPI - General Adult General Chief complaint: Chest Pain Stated complaint: CHEST PAIN Time Seen by Provider: 10/29/24 12:45 History of Present Illness HPI narrative: 63-year-old male presents for chest pain and dizziness. He has been having this pain in his chest on and off for a month. He has been having episodes of dizziness and states he fell down some stairs today and he hurt his neck. He states he has just a little bit of chest pain right now and in the remote past he had a heart attack. He is a poor historian. Related Data Home Medications ?Medication ?Instructions ?Recorded ?Confirmed albuterol sulfate 90 mcg/actuation 2 puff inhalation Q6H PRN 10/29/24 10/29/24 aerosol inhaler (Ventolin HFA) shortness of breath or wheezing alprazolam 0.5 mg tablet 1 mg PO TID PRN anxiety 10/29/24 10/29/24 aspirin 81 mg chewable tablet 81 mg PO DAILY 10/29/24 10/29/24 (Aspirin Childrens) atorvastatin 40 mg tablet 40 mg PO DAILY 10/29/24 10/29/24 fluticasone fur. 200 mcg-umeclid 1 inh inhalation DAILY 10/29/24 62.5 mcg-vilant 25 mcg inhalat.powder (Trelegy Ellipta) roflumilast 500 mcg tablet 500 mcg PO DAILY 10/29/24 trazodone 100 mg tablet 100 mg PO BEDTIME 10/29/24 10/29/24 Allergies Allergy/AdvReac Type Severity Reaction Status Date / Time No Known Drug Allergies Allergy Verified 10/29/24 12:52 Opioid HPI Opioid Management Most Recent Opioid Data: Last Pain Scale 6 10/29/24 13:12 10/29/24 Review of Systems ROS Narrative A ten point review of systems is negative except as noted above. PFSH PFSH Social History Little interest or pleasure in doing things: not at all Feeling down, depressed, or hopeless: not at all Exam Narrative Exam Narrative: Nurses note and vital signs reviewed and patient is not hypoxic. General: The patient appears well and in no apparent distress. Patient is resting comfortably on cart. Skin: Warm, dry, no pallor noted. There is no rash noted. Head: Normocephalic, atraumatic; he has some tenderness on the right side of his neck posteriorly. Eye: Normal conjunctiva, no drainage Ears, Nose, Mouth, and Throat: oral mucosa is moist. Nares patent. Cardiovascular: Regular Rate and Rhythm Respiratory: Patient is in no distress, no accessory muscle use, lungs are clear to auscultation, no wheezing, rales or rhonchi Back: non-tender, no CVA tenderness bilaterally to percussion. GI: Soft and nontender Musculoskeletal: All joints have full range of motion. Neurological: A&O, normal speech Psychiatric: Cooperative Constitutional Vital Signs, click to edit/add: Last Vital Signs Temp 100.5 F H 10/29/24 12:52 Pulse 93 H 10/29/24 14:30 Resp 29 H 10/29/24 14:30 BP 104/68 10/29/24 14:30 Pulse Ox 92 L 10/29/24 14:30 O2 Del Method Room Air 10/29/24 12:52 Course Vital Signs Vital signs: Vital Signs Blood Pressure 119/71 10/29/24 12:51 Temperature 100.5 F H 10/29/24 12:52 Pulse Rate 93 H 10/29/24 14:30 Respiratory Rate 29 H 10/29/24 14:30 Blood Pressure 104/68 10/29/24 14:30 Pulse Oximetry 92 L 10/29/24 14:30 Oxygen Delivery Method Room Air 10/29/24 12:52 Medical Decision Making MDM Narrative Medical decision making narrative: Chest x-ray per radiologist suggest pneumonia. Temperature is 100.5. Blood cultures were obtained and lactic acid is pending as well as influenza and COVID test. Blood cultures were obtained and then he was given IV Rocephin and Zithromax and he is being admitted. Initial troponin negative and EKG shows no acute findings. His chest pain symptoms are concerning and may need further workup. Treatment diagnosis and disposition were discussed with the patient. He had received aspirin from the paramedics. Differential Diagnosis Differential Diagnosis: Myocardial infarction, unstable angina, pneumothorax, pneumonia, COVID Lab Data Lab results reviewed: Yes I reviewed the patient's lab results Labs: Lab Results 10/29/24 Range/Units 13:15 WBC 8.2 (4.0-11.0) 10^3/uL RBC 4.33 L (4.70-6.10) 10^6/uL Hgb 14.5 (14.0-18.0) g/dL Hct 44.8 (42.0-54.0) % MCV 103.5 H (80.0-94.0) fL MCH 33.5 (25.9-34.0) pg MCHC 32.4 (29.9-35.2) g/dL RDW 14.6 (11.0-15.0) % Plt Count 168 (150-450) 10^3/uL MPV 10.1 (9.5-13.5) fL Neut % (Auto) 87.4 H (43.0-75.0) % Lymph % (Auto) 4.5 L (20.5-60.0) % [place] % (Auto) 7.3 (1.7-12.0) % Eos % (Auto) 0.2 L (0.9-7.0) % Baso % (Auto) 0.4 (0.2-2.0) % Neut # (Auto) 7.1 H (1.4-6.5) 10^3/uL Lymph # (Auto) 0.4 L (1.2-3.8) 10^3/uL [place] # (Auto) 0.6 (0.3-0.8) 10^3/uL Eos # (Auto) 0.0 (0.0-0.7) 10^3/uL Baso # (Auto) 0.0 (0.0-0.1) 10^3/uL Abs Immat Gran (auto) 0.02 (0.00-0.03) 10^3/uL Imm/Tot Granulo (auto) 0.2 (0.0-0.5) % Sodium 138 (136-145) mmol/L Potassium 3.9 (3.5-5.1) mmol/L Chloride 101 (98-107) mmol/L Carbon Dioxide 27.4 (21.0-32.0) mmol/L Anion Gap 13.5 BUN 15.0 (7.0-18.0) mg/dL Creatinine 1.38 H (0.70-1.30) mg/dL Est GFR ( Amer) >60 (>=60 mL/min/1.73m^2) Est GFR (Non-Af Amer) 52 L (>=60 mL/min/1.73m^2) BUN/Creatinine Ratio 10.9 Glucose 95 (74-106) mg/dL Calcium 8.5 (8.5-10.1) mg/dL Troponin I High Sens 60.0 (4.0-76.1) pg/mL Imaging Data Chest x-ray: Radiologist's impression: ITS Impressions Cervical Spine CT 10/29/24 13:38 IMPRESSION: No acute intracranial process is identified. No acute fracture. Electronically authenticated by: SEAN PANDYA Date: 10/29/2024 13:51 Chest X-Ray 10/29/24 13:38 IMPRESSION: Small amount of increased density in the right midlung field. Findings could represent atelectasis, scarring, or an early infiltrate. No consolidation. Electronically authenticated by: MARSHA RIVERA Date: 10/29/2024 14:[address] 10/29/24 13:38 IMPRESSION: No acute intracranial process is identified. No acute fracture. Electronically authenticated by: SEAN[facility] CompaniesDipak Date: 10/29/2024 13:51 ECG Data Attestation: I personally reviewed and interpreted this ECG as follows: (EKG on my interpretation shows sinus rhythm with a rate of 102 and no acute changes) Discharge Plan Discharge Chief Complaint: Chest Pain Clinical Impression: Pneumonia, Chest pain Patient Disposition: Admitted As Inpatient Time of Disposition Decision: 14:46 Condition: Good
[2024-10-29 13:34] LABS: Basophils Percent Auto 0.4 % (0.2-2.0); Eosinophils Percent Auto 0.2 % (0.9-7.0); Hematocrit 44.8 % (42.0-54.0); Hemoglobin 14.5 g/dL (14.0-18.0); Immature Granulocytes Abs Auto 0.02 10^3/uL (0.00-0.03); Immature Granulocytes Pct Auto 0.2 % (0.0-0.5); Lymphocytes Absolute Auto 0.4 10^3/uL (1.2-3.8); Lymphocytes Percent Auto 4.5 % (20.5-60.0); Mean Corpuscular HGB Conc 32.4 g/dL (29.9-35.2); Mean Corpuscular Hemoglobin 33.5 pg (25.9-34.0); Mean Corpuscular Volume 103.5 fL (80.0-94.0); Mean Platelet Volume 10.1 fL (9.5-13.5); Monocytes Absolute Auto 0.6 10^3/uL (0.3-0.8); Monocytes Percent Auto 7.3 % (1.7-12.0); Neutrophils Absolute Auto 7.1 10^3/uL (1.4-6.5); Neutrophils Percent Auto 87.4 % (43.0-75.0); Platelet Count 168 10^3/uL (150-450); Red Blood Count 4.33 10^6/uL (4.70-6.10); Red Cell Distribution Width 14.6 % (11.0-15.0); White Blood Count 8.2 10^3/uL (4.0-11.0)
--- NOTE | 2024-10-29 13:38 | CT_ITS ---
The [address] [address] Patient Name: FELECIA BASS MRN: [id number] date: 1960 Sex: M Assigned Patient Location: ER Current Patient Location: ED.MAIN Accession/Order Number: [id number] Exam Date: 10/29/2024 13:28 Report Date: 10/29/2024 13:51 At the request of: SILVINA NOLASCO Procedure: CT head/brain wo con CT head/brain wo con, CT cervical spine wo con, 10/29/2024 1:28 PM EST INDICATION: Dizziness and fall COMPARISON: There is no appropriate prior study for comparison. TECHNIQUE: Axial images of 3 mm are obtained from the base of the skull to vertex completed with Axial images of 2 mm are obtained from base of skull to T2 without contrast. Dose reduction techniques were achieved by using automated exposure control and/or adjustment of mA and/or kV according to patient size and/or use of iterative reconstruction technique. FINDINGS: The cerebral and cerebellar sulci as well as ventricular system are appropriate for age. There is no intracranial mass, mass effect, midline shift, intra or extra-axial fluid collection. No acute territorial infarction or hemorrhage is noted. Periventricular and centrum semiovale hypodensities are most likely consistent with microvascular ischemic changes. The visualized portions of orbits, mastoid air cells as well as paranasal sinuses are unremarkable. There is no suspicious osteolytic or osteoblastic lesion. No acute fracture or dislocation is noted. Multilevel degenerative changes of cervical spine are noted. CT/CT head/brain wo con IMPRESSION: No acute intracranial process is identified. No acute fracture. Electronically authenticated by: SEAN PANDYA Date: 10/29/2024 13:51
--- NOTE | 2024-10-29 13:38 | XR_ITS ---
The [address] [address] Patient Name: FELECIA BASS MRN: [id number] date: 1960 Sex: M Assigned Patient Location: ER Current Patient Location: ED.MAIN Accession/Order Number: [id number] Exam Date: 10/29/2024 13:28 Report Date: 10/29/2024 14:17 At the request of: SILVINA NOLASCO Procedure: XR chest 1V EXAM: XR chest 1V HISTORY: . CP . COMPARISON: None TECHNIQUE: Single view of the chest FINDINGS: Heart and vascularity are unremarkable. Left lung is unremarkable. There is slight increased density in the right midlung field. No consolidation is noted. EKG leads overlie the chest. XR/XR chest 1V IMPRESSION: Small amount of increased density in the right midlung field. Findings could represent atelectasis, scarring, or an early infiltrate. No consolidation. Electronically authenticated by: MARSHA RIVERA Date: 10/29/2024 14:17
--- NOTE | 2024-10-29 13:38 | CT_ITS ---
The [address] [address] Patient Name: FELECIA BASS MRN: [id number] date: 1960 Sex: M Assigned Patient Location: ER Current Patient Location: ED.MAIN Accession/Order Number: [id number] Exam Date: 10/29/2024 13:28 Report Date: 10/29/2024 13:51 At the request of: SILVINA NOLASCO Procedure: CT cervical spine wo con CT head/brain wo con, CT cervical spine wo con, 10/29/2024 1:28 PM EST INDICATION: Dizziness and fall COMPARISON: There is no appropriate prior study for comparison. TECHNIQUE: Axial images of 3 mm are obtained from the base of the skull to vertex completed with Axial images of 2 mm are obtained from base of skull to T2 without contrast. Dose reduction techniques were achieved by using automated exposure control and/or adjustment of mA and/or kV according to patient size and/or use of iterative reconstruction technique. FINDINGS: The cerebral and cerebellar sulci as well as ventricular system are appropriate for age. There is no intracranial mass, mass effect, midline shift, intra or extra-axial fluid collection. No acute territorial infarction or hemorrhage is noted. Periventricular and centrum semiovale hypodensities are most likely consistent with microvascular ischemic changes. The visualized portions of orbits, mastoid air cells as well as paranasal sinuses are unremarkable. There is no suspicious osteolytic or osteoblastic lesion. No acute fracture or dislocation is noted. Multilevel degenerative changes of cervical spine are noted. CT/CT cervical spine wo con IMPRESSION: No acute intracranial process is identified. No acute fracture. Electronically authenticated by: SEAN PANDYA Date: 10/29/2024 13:51
[2024-10-29 14:00] LABS: Anion Gap 13.5; BUN Creatinine Ratio 10.9; Calcium 8.5 mg/dL (8.5-10.1); Carbon Dioxide 27.4 mmol/L (21.0-32.0); Chloride 101 mmol/L (98-107); Estimated GFR (African America >60 (>=60 mL/min/1.73m^2); Estimated GFR (Non-African Ame 52 (>=60 mL/min/1.73m^2); Glucose 95 mg/dL (74-106); Potassium 3.9 mmol/L (3.5-5.1); Sodium 138 mmol/L (136-145)
[2024-10-29] MEDS: 0.9 % SODIUM CHLORIDE 500 ML IV (14:09)
[2024-10-29] MEDS: ACETAMINOPHEN 325 MG TABLET 650 MG PO (14:44)
--- NOTE | 2024-10-29 15:11 | P.HP_ITS ---
HPI H&P: HPI History of Present Illness Chief complaint: PNEUMONIA Narrative: Patient is a 63 y.o White male with past medical history of COPD, current smoker, HLD, insomnia, and anxiety who presented to the ER today with 2-3 day history of not feeling well. He states he got very dizzy the last 2 days and today he lost his balance and fell down 15 stairs. He denies LOC. He has been having fevers, chills, productive cough, sore throat and chest pain. Patient notes a history of Sinus Tachycardia, 2007, had normal stress test at [facility]. Has not followed with [employer] since then, had no issues. Chest pain is right sided, non radiating, worse when he is in a coughing fit. No sweating or arm pain. ER findings: WBCs 8.0, Cr 1.38, Trop 60, T 100.5, 93 HR, 92% on room air, RR 29, Covid negative and influenza A positive , lactate 1.7 CXR showed RML pneumonia, CT neck and Head- showed no acute processes Opioid HPI Opioid Management Most Recent Pain and Opioid Data: Last Pain Scale 6 10/29/24 13:12 10/29/24 Last Pain Assessment 10/29/24 16:00 Last ORT Total Score 0 10/29/24 15:44 10/29/24 Last ORT Risk Category Low Risk 10/29/24 15:44 10/29/24 Review of Systems ROS Narrative ROS: a complete review of systems were reviewed with patient and are positive as below or listed in History of Chief Complaint. General: fever, chills, no night sweats Head: no headache, trauma, visual changes, nausea or vomiting Skin: no reported rashes, itching or sores Eyes: no blurriness of vision Ears: no reported hearing loss, vertigo, earache, or tinnitus Throat: no sore throat, hoarseness, swelling of neck, or tongue pain Heart: chest pain Lungs: shortness of breath and cough GI: no diarrhea or vomiting/nausea Urinary: no urinary urgency, frequency or pain Neuro: no numbness or tingling HEM: no bleeding issues or bruising ENDO: no thyroid problems Psych: anxiety no depression PFSH PFS Medical History (Updated 10/29/24 @ 16:40 by Casi Strickland, ) Smoker ?F17.200 - Nicotine dependence, unspecified, uncomplicated (ICD-10) Generalized anxiety disorder ?F41.1 - Generalized anxiety disorder (ICD-10) Insomnia disorder ?G47.00 - Insomnia, unspecified (ICD-10) Hyperlipidemia ?E78.5 - Hyperlipidemia, unspecified (ICD-10) Social History Highest level of school completed/degree received: 11th grade Little interest or pleasure in doing things: not at all Feeling down, depressed, or hopeless: not at all Meds Home Medications and Allergies Home Medications ?Medication ?Instructions ?Recorded ?Confirmed ?Type albuterol sulfate 90 mcg/actuation 2 puff inhalation Q6H PRN 10/29/24 10/29/24 History aerosol inhaler (Ventolin HFA) shortness of breath or wheezing alprazolam 0.5 mg tablet 1 mg PO TID PRN anxiety 10/29/24 10/29/24 History aspirin 81 mg chewable tablet 81 mg PO DAILY 10/29/24 10/29/24 History (Aspirin Childrens) atorvastatin 40 mg tablet 40 mg PO DAILY 10/29/24 10/29/24 History fluticasone fur. 200 mcg-umeclid 1 inh inhalation DAILY 10/29/24 History 62.5 mcg-vilant 25 mcg inhalat.powder (Trelegy Ellipta) roflumilast 500 mcg tablet 500 mcg PO DAILY 10/29/24 History trazodone 100 mg tablet 100 mg PO BEDTIME 10/29/24 10/29/24 History Allergies Allergy/AdvReac Type Severity Reaction Status Date / Time No Known Drug Allergies Allergy Verified 10/29/24 12:52 Exam Narrative Exam Narrative: General: Patient is alert, and oriented to person, place and time with normal affect, proper hygiene Skin: no visible rashes, or ulcers Head: atraumatic, acephalic Eyes: PERRLA, no nystagmus present, conjunctiva clear, no scleral icterus Ears: normal gross auditory acuity Neck: no masses palpated, normal thyroid, no JVD or audible carotid bruits Heart: Normal rate and rhythm, no murmurs/rubs/gallops Lungs: audible wheezes and crackles and diminished breath sounds all lung galeano Abdomen: Normal audible bowel sounds, no distension, No palpable masses, no organomegaly, no rebound/guarding/ or rigidity Musculoskeletal: no swelling bilateral lower extremities Neuro: CN II-X grossly intact Constitutional Vital Signs, click to edit/add: Last Vital Signs Temp 100.5 F H 10/29/24 12:52 Pulse 93 H 10/29/24 14:30 Resp 29 H 10/29/24 14:30 BP 104/68 10/29/24 14:30 Pulse Ox 92 L 10/29/24 14:30 O2 Del Method Room Air 10/29/24 12:52 Results Labs Labs: Short CBC 10/29/24 Range/Units 13:15 WBC 8.2 (4.0-11.0) 10^3/uL Hgb 14.5 (14.0-18.0) g/dL Hct 44.8 (42.0-54.0) % Plt Count 168 (150-450) 10^3/uL BMP 10/29/24 13:15 Sodium 138 Potassium 3.9 Chloride 101 Carbon Dioxide 27.4 BUN 15.0 Creatinine 1.38 H Glucose 95 Calcium 8.5 Assessment and Plan Assessment and Plan (1) Pneumonia: Assessment and Plan: continue to monitor the need for oxygenation and high risk of decompensation due to COPD. Will treat with IV Rocephin and Azith, viral testing positive for INfluenza A. CXR consistent with RML pneumonia. Fever present, tachycardia. Qualifiers: Laterality: right Lung location: middle lobe of lung Pneumonia type: due to unspecified organism Qualified Code(s): J18.9 - Pneumonia, unspecified organism (2) Influenza A virus present: Assessment and Plan: will treat with Tamiflu x 5 days. (3) COPD exacerbation: Assessment and Plan: will add Solumedrol 60mg q6 hours, Opep, pulmicort, duonebs. (4) Chest pain: Assessment and Plan: most likely secondary to pneumonia, first troponin was negative, will continue to trend x 3. Telemetry. continue aspirin Qualifiers: Chest pain type: unspecified Qualified Code(s): R07.9 - Chest pain, unspecified (5) Hyperlipidemia: Assessment and Plan: continue atorvastatin, recheck lipids in the morning, ha1c. Qualifiers: Hyperlipidemia type: unspecified Qualified Code(s): E78.5 - Hyperlipidemia, unspecified (6) Insomnia disorder: Assessment and Plan: continue trazodone Qualifiers: Insomnia type: primary Qualified Code(s): F51.01 - Primary insomnia (7) Generalized anxiety disorder: Assessment and Plan: continue xanax as needed (8) Smoker: Assessment and Plan: nicoderm patch if needed. Plan patient is a full code continue heparin for DVT prophylaxis Patient is in observation status and is not expected to cross 2 midnights.
[2024-10-29] MEDS: CEFTRIAXONE 1,000 MG in 0.9 % SODIUM CHLORIDE 50 ML 100 MG IV (15:15)
[2024-10-29 15:21] LABS: Lactate/Lactic Acid 1.7 mmol/L (0.4-2.0)
--- NOTE | 2024-10-29 15:24 | ECG_ITS ---
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
[2024-10-29 15:25] LABS: Magnesium 2.2 mg/dL (1.8-2.4)
[2024-10-29] MEDS: AZITHROMYCIN 500 MG in 0.9 % SODIUM CHLORIDE 250 ML 250 MG IV (15:45)
--- OUTSIDE RECORDS SUMMARY | 2024-10-29 16:03 | XMS_ITS | CCD ---
Author Organization [facility] Care Team Providers Care Cds Sales Advisor Name Role Phone KRISSY JOHNSTON Attending Unavailable WEST, DR MARSHA Eli Consulting Unavailable FURLONG, DR SKIP [facility] Unavailable KRISSY JOHNSTON Admitting Unavailable KRISSY JOHNSTON Consulting Unavailable Furlong Skip NAYAK Primary Care Provider ROYA SESAY Referring Unavailable FURLONG, SKIP G Primary Care Unavailable FURLONG, SKIP G Attending Unavailable FURLONG, SKIP G Referring Unavailable FURLONG, SKIP G Primary Care Unavailable FURLONG, SKIP G Referring Unavailable FURLONG, SKIP G Primary Care Unavailable FURLONG, SKIP G Referring Unavailable FURLONG, SKIP G Primary Care Unavailable ROYA SESAY Attending Unavailable FURLONG, SKIP G Referring Unavailable FURLONG, SKIP G Primary Care Unavailable FURLONG, SKIP G Attending Unavailable FURLONG, SKIP G Referring Unavailable FURLONG, SKIP G Primary Care Unavailable FURLONG, SKIP G Attending Unavailable FURLONG, SKIP G Referring Unavailable FURLONG, SKIP G Primary Care Unavailable FURLONG, SKIP G Attending Unavailable FURLONG, SKIP G Referring Unavailable FURLONG, SKIP G Primary Care Unavailable FURLONG, SKIP G Attending Unavailable FURLONG, SKIP G Referring Unavailable FURLONG, SKIP G Primary Care Unavailable FURLONG, SKPI G Attending Unavailable FURLONG, SKIP G Referring Unavailable FURLONG, SKIP G Primary Care Unavailable Medications Current Medications Medication Drug Class(es) Dates Sig (Normalized) Sig (Original) ALPRAZolam 0.5 mg oral tablet (17 sources) Benzodiazepine Start: 06-27-2024 End: 08-27-2024 take 1 tablet by mouth three times daily as needed for anxiety ALPRAZolam (XANAX) 0.5 mg tablet Indications: Anxiety TAKE 1 TABLET BY MOUTH THREE TIMES DAILY NEEDED FOR ANXIETY 30 tablet 1 08/27/2024 Active Start: 07-30-2023 End: 12-02-2023 take 1 tablet by mouth three times daily as needed for anxiety ALPRAZolam (XANAX) 0.5 mg tablet Indications: Anxiety TAKE 1 TABLET BY MOUTH THREE TIMES DAILY NEEDED FOR ANXIETY 30 tablet 1 12/02/2023 Active aspirin 81 mg delayed release oral tablet (14 sources) Platelet Aggregation Inhibitor, Nonsteroidal Anti-inflammatory Drug take 1 tablet by mouth in the morning aspirin 81 mg Take 1 tablet (81 mg total) by mouth in the morning. Active atorvastatin 40 mg oral tablet (15 sources) HMG-CoA Reductase Inhibitor Start: End: take 1 tablet by mouth in the morning atorvastatin (LIPITOR) 40 mg tablet Indications: Coronary arteriosclerosis Take 1 tablet (40 mg total) by mouth in the morning. 30 tablet 11 09/17/2024 Active Start: 07-16-2022 End: 11-10-2023 take 1 [...] mg total) before bedtime. 0 11/10/2023 Active fluticasone-umecli din-vilanter (TRELEGY ELLIPTA) 200-62.5-25 mcg blister with device (12 sources) Start: 11-10-2023 take 1 puff(s) by inhalation in the morning fluticasone-umec lidin-vilanter (TRELEGY ELLIPTA) 200-62.5-25 mcg blister with device Indications: Pulmonary emphysema, unspecified emphysema type (CMS-HCC) Inhale 1 puff in the morning. 1 each 5 11/10/2023 Active roflumilast 0.5 mg oral tablet (8 sources) Phosphodiesterase 4 Inhibitor Start: 05-17-2024 take 1 tablet by mouth in the morning roflumilast (DALIRESP) 500 mcg tablet Indications: Pulmonary emphysema, unspecified emphysema type (CMS-HCC) Take 1 tablet (500 mcg total) by mouth in the morning. 30 tablet 5 05/17/2024 Active traZODone hydrochloride 100 mg oral tablet (16 sources) Serotonin Reuptake Inhibitor Start: 02-09-2024 End: 08-20-2024 take 1 tablet by mouth once daily traZODone (DESYREL) 100 mg tablet Take 1 tablet (100 mg total) by mouth nightly. 30 tablet 5 08/20/2024 Active Start: 07-30-2023 End: 11-02-2023 take 1 tablet by mouth once daily traZODone (DESYREL) 100 mg tablet Take 1 tablet by mouth nightly 30 tablet 2 11/02/2023 Active Completed/Discontinued Medications Medication Drug Class(es) Dates Sig (Normalized) Sig (Original) [id number] 200 actuat albuterol 0.09 mg/actuat metered dose inhaler (20 sources) beta2-Adrenergic Agonist Start: 04-26-2024 End: 10-22-2024 take 2 puff(s) by mouth every four hours as needed for wheezing VENTOLIN HFA 90 mcg/actuation inhaler Indications: Pulmonary emphysema, unspecified emphysema type (CMS-HCC) INHALE 2 PUFFS BY MOUTH EVERY 4 HOURS NEEDED FOR WHEEZING FOR SHORTNESS OF BREATH 18 g 1 10/22/2024 10/22/2024 Discontinued (Reorder) Start: 09-12-2023 End: 11-10-2023 take 2 puff(s) by mouth every four hours as needed for wheezing VENTOLIN HFA 90 mcg/actuation inhaler Indications: Pulmonary emphysema, unspecified emphysema type (CMS-HCC) INHALE 2 PUFFS BY MOUTH EVERY 4 HOURS NEEDED FOR WHEEZING FOR SHORTNESS OF BREATH 18 g 1 11/10/2023 Active 30 actuat fluticasone furoate 0.1 mg/actuat / [...] Problem Date Documented Date Episodic/Chronic Anxiety disorders (20 sources) Anxiety; Translations: [Anxiety disorder, unspecified] Onset: 07-12-2022 10-03-2023 Chronic Chronic obstructive pulmonary disease and bronchiectasis (20 sources) Pulmonary emphysema; Translations: [Emphysema, unspecified] Onset: 07-13-2022 01-24-2023 Chronic Coronary atherosclerosis and other heart disease (19 sources) Coronary arteriosclerosis; Translations: [Atherosclerotic heart disease of [place] coronary artery without angina pectoris] Onset: 10-13-2022 10-13-2022 Chronic Substance-related disorders (17 sources) Nicotine dependence, cigarettes, uncomplicated; Translations: [Nicotine dependence] Onset: 07-13-2022 10-13-2022 Chronic Unclassified (2 sources) Supraventricular tachycardia, unspecified; Translations: [Supraventricular tachycardia, unspecified] Onset: 11-10-2023 Unclassified (1 source) Annual Exam Onset: 05-10-2024 Unclassified (1 source) 3 Month follow up Onset: 02-09-2024 Unclassified (1 source) Suspicious Skin Lesion Onset: 11-29-2023 Past or Other Problems Problem Classification Problem Date Documented Da te Episodic/Chronic Cardiac dysrhythmias (20 sources) Supraventricular tachycardia; Translations: [SVT (supraventricular tachycardia)] Onset: 2 Resolved: 4 07-12-2022 Chronic Mood disorders (14 sources) Mood disorders Onset: 3 Resolved: 4 08-09-2023 Neoplasms of unspecified nature or uncertain behavior (3 sources) Neoplasm of uncertain behavior of skin; Translations: [Neoplasm of uncertain behavior of skin] Onset: 4 11-10-2023 Episodic Other aftercare (2 sources) Encounter for therapeutic drug level monitoring; Translations: [Encounter for therapeutic drug level monitoring] Onset: 4 Episodic Other lower respiratory disease (12 sources) Lung mass; Translations: [Other nonspecific abnormal finding of lung field] Onset: 4 11-10-2023 Episodic Other screening for suspected conditions (not mental disorders or infectious disease) (5 sources) Encounter for screening for malignant neoplasm of respiratory organs; Translations: [Encounter for screening for cardiovascular disorders] Onset: 3 Episodic Phlebitis; thrombophlebitis and thromboembolism (12 sources) Deep venous thrombosis; Translations: [Acute embolism and thrombosis of unspecified deep veins of unspecified lower extremity] Onset: 4 Resolved: 4 11-10-2023 Episodic Pulmonary heart disease (14 sources) Acute pulmonary embolism; Translations: [Other pulmonary embolism without acute cor pulmonale] Onset: 4 Resolved: 4 11-10-2023 Episodic Residual codes; unclassified (15 sources) Persistent insomnia; Translations: [Insomnia, unspecified] Onset: 2 07-12-2022 Episodic Residual codes; unclassified (14 sources) Lung cancer screening declined; Translations: [Procedure and treatment not carried out because of patient's decision for unspecified reasons] Onset: 3 Resolved: 4 10-13-2022 Episodic Residual codes; unclassified (1 source) Insomnia, unspecified; Translations: [Insomnia, unspecified] Onset: 2 Episodic Screening and history of mental health and substance abuse codes (1 source) Encounter for screening for depression; Translations: [Encounter for screening for depression] Onset: 4 Episodic Unclassified (14 sources) Onset: 3 12-30-2022 Viral infection (15 sources) Herpes simplex; Translations: [Herpesviral infection, unspecified] Onset: 3 10-13-2022 Episodic Results Test Name Value Interpretation Reference Range Facility DRUG SCREEN, URINEon 024 AMPHETAMINE/METHAMP Negative Normal NEG [facility] Comment on above: Result Comment: AMPH /METH screening cut off = 1000 ng/mL Performed By: #### D OJEDA #### [facility] ([id number]) [address] [place] [address] BARBITURATES Negative Normal NEG [facility] Comment on above: Result Comment: Olya iturates screening cut off value = 200 ng/mL Performed By: #### D OJEDA #### [facility] ([id number]) [address] [place] [address] BENZODIAZEPINES Positive Abnormal NEG [facility] Comment on above: Result Comment: Conf irmation available upon request. Benzodiazepines screening cut off value = 200 ng/mL Performed By: #### D OJEDA #### [facility] ([id number]) [address] [place] [address] CANNABINOIDS Negative Normal NEG [facility] Comment on above: Result Comment: Jose abinoids/THC screening cut off value = 50 ng/mL Performed By: #### D OJEDA #### [facility] ([id number]) [address] [place] [address] COCAINE METABOLITE Negative Normal NEG [facility] Comment on above: Result Comment: Coca ine screening cut off value = 300 ng/mL Performed By: #### D OJEDA #### [facility] ([id number]) [address], [address] [place] [address] ECSTASY Positive Abnormal NEG [facility] Comment on above: Result Comment: Inte rference from Buproprion or Labetalol may cause a positive result, confirmation available upon request. Ecstasy screening cut off value = 500 ng/mL This report is intended for use in clinical monitoring or management of patients. Performed By: #### D OJEDA #### [facility] ([id number]) [address] [place] [address] METHADONE Negative Normal NEG [facility] Comment on above: Result Comment: Meth adone screening cut off value = 300 ng/mL. Performed By: #### D OJEDA #### [facility] ([id number]) [address] [place] [address] OPIATES Negative Normal NEG [facility] Comment on above: Result Comment: Opia stevenson screening cut off value = 300 ng/mL NOTE: This test is used for the detection of codeine, hydrocodone (>1000 ng/mL), morphine and hydromorphone (>900 ng/mL) in urine. Performed By: #### D OJEDA #### [facility] ([id number]) [address] [facility], [address] [address] OXYCODONE Negative Normal NEG [facility] Comment on above: Result Comment: Oxyc odone screening cut off value = 300 ng/mL NOTE: This test is used for the detection of oxycodone and oxymorphone in urine. Performed By: #### D OJEDA #### [facility] ([id number]) [address] [address] PHENCYCLIDINE Negative Normal NEG [facility] Comment on above: Result Comment: Phen cyclidine screening cut off value = 25 ng/mL Performed By: #### D OJEDA #### [facility] ([id number]) [address] [address] Surgical Pathologyon 024 Surgical Pathology Normal [facility] Comment on above: Result Comment: [facility] [address] [place] [address] Surgical Pathology Consultation Patient Name:FELECIA CUNHA:1960 (Age: 63)Gender:MTaken:4Reported:4Physician(s):Mahesh Sesay MD ([phone])Copy To: Rec. #:[id number]: #[id number] Final Pathologic Diagnosis Left buttock: Traumatized seborrheic keratosis and granulation tissue. Clinical correlation is indicated. NOTE: The above diagnosis is from [facility]. Please see the complete text of their report in the patient???s electronic medical record. Report Electronically Signed [facility]/12/06/2023Roxy Harvey MD Interpretation performed at [facility], [address] [place] [address], License number: [id number]. Clinical History Neoplasm of uncertain behavior of skin D48.5. Left buttock skin lesion. Gross Description Received in formalin labeled GUERLINE, left buttock skin lesion is a hong-nunn [...] specimen submitted in cassette B???C. (3, ns, [id number], A???C, m2) [facility]/11/30/2023EAK Specimen(s) Received Left buttock Fee Codes(s): 1; 75574 Comprehensive metabolic pane [facility] 11-11-2023 Albumin [Mass/Vol] 3.7 g/dL 3.2 - 5.3 g/dL [facility] ALP [Catalytic activity/Vol] 115 U/L 39 - 130 U/L [facility] ALT No additional P-5'-P [Catalytic activity/Vol] 10 U/L 0 - 40 U/L [facility] Anion gap [Moles/Vol] 5 mmol/L 5 - 15 mmol/L [facility] AST [Catalytic activity/Vol] 14 U/L 0 - 41 U/L [facility] Bilirubin [Mass/Vol] 0.5 mg/dL 0.3 - 1 .2 mg/dL [facility] Calcium [Mass/Vol] 8.7 mg/dL 8.5 - 10. 5 mg/dL [facility] Chloride [Moles/Vol] 104 mmol/L 98 - 10 9 mmol/L [facility] CO2 [Moles/Vol] 30 mmol/L 22 - 32 mmol/L [facility] Creatinine [Mass/Vol] 0.92 mg/dL 0.60 - 1.30 mg/dL [facility] Comment on above: METHOD TRACEABLE TO [facility] STANDARD eGFR (CKD-EPI)non-race dependent - PINF [facility] Comment on above: Reported eGFR is based on the CKD-EPI 2020 equation that does not use a race coefficient. Glucose [Mass/Vol] 93 mg/dL 65 - 99 mg/dL [facility] Potassium [Moles/Vol] 4.4 mmol/L 3.5 - 5.0 mmol/L [facility] Protein [Mass/Vol] 6.8 g/dL 6.0 - 8.0 g/dL [facility] Sodium [Moles/Vol] 139 mmol/L 134 - 146 mmol/L [facility] Urea nitrogen [Mass/Vol] 11 mg/dL 5 - 27 mg/dL [facility] Lipid 1996 panelon 4 Cholesterol [Mass/Vol] 134 mg/dL Low 150 - 200 mg/dL [facility] Cholesterol in HDL [Mass/Vol] 38 mg/dL Low 39 - PINF mg/dL [facility] Comment on above: HDL <40 mg/dL - High Risk HDL > or = 40mg/dL- Desirable HDL >60 mg/dL - Negative Risk Cholesterol in LDL [Mass/Vol] 67 mg/dL NINF - 130 mg/dL [facility] Comment on above: LDL <100 mg/dL - Desirable LDL >160 mg/dL - High Risk Cholesterol in VLDL [Mass/Vol] 29 mg/dL 0 - 30 mg/dL [facility] Cholesterol.total/Cho lesterol in HDL [Mass ratio] 3.5 {ratio} 1.0 - 5.0 [facility] Interpretation and review of laboratory results Abnormal [facility] Triglyceride [Mass/Vol] 146 mg/dL 27 - 150 mg/dL [facility] No Panel Informationon 11-11 [facility] COMPREHENSIVE METABOLIC PANE Donato 11-10-2023 Albumin [Mass/Vol] 3.7 g/dL Normal 3.2-5.3 [facility] Comment on above: Performed By: #### Amadou CALLAHAN, 80395-4 #### [facility] ([id number]) [address] [place] [address] ALP [Catalytic activity/Vol] 115 U/L Normal 39-130 [facility] Comment on above: Performed By: #### Amadou CALLAHAN, 01149-2 #### [facility] ([id number]) [address] [place] [address] ALT [Catalytic activity/Vol] 10 U/L Normal 0-40 [facility] Comment on above: Performed By: #### Amadou CALLAHAN, 94710-3 #### [facility] ([id number]) [address] [place] [address] Anion gap [Moles/Vol] 5 mmol/L Normal 5-15 [facility] Comment on above: Performed By: #### Amadou CALLAHAN, 66646-3 #### [facility] ([id number]) [address] [place] [address] AST [Catalytic activity/Vol] 14 U/L Normal 0-41 [facility] Comment on above: Performed By: #### Amadou CALLAHAN, 51006-6 #### [facility] ([id number]) [address] [place] [address] Bilirubin [Mass/Vol] 0.5 mg/dL Normal 0.3-1.[address] [facility] Comment on above: Performed By: #### Amadou CALLAHAN, 43497-2 #### [facility] ([id number]) [address] [place] [address] Calcium [Mass/Vol] 8.7 mg/dL Normal 8.5-10.5 [facility] Comment on above: Performed By: #### Amadou CALLAHAN, 88054-9 #### [facility] ([id number]) [address] [place] [address] Chloride [Moles/Vol] 104 mmol/L Normal 98-[address] [facility] Comment on above: Performed By: #### Amadou CALLAHAN, 86183-7 #### [facility] ([id number]) [address] [place] [address] CO2 [Moles/Vol] 30 mmol/L Normal 22-32 [facility] Comment on above: Performed By: #### Amadou CALLAHAN, 10793-7 #### [facility] ([id number]) [address] [place] [address] Creatinine [Mass/Vol] 0.92 mg/dL Normal 0.60-1.30 [facility] Comment on above: Result Comment: METH OD TRACEABLE TO IDMS STANDARD Performed By: #### Amadou CALLAHAN, 82885-6 #### [facility] ([id number]) [address] [place] [address] eGFR (CKD-EPI) NON-RACE DEPENDENT >90 Normal >59 [facility] Comment on above: Result Comment: Reported eGFR is based on the CKD-EPI 2020 equation that does not use a race coefficient. Performed By: #### Amadou CALLAHAN, 03713-8 #### [facility] ([id number]) [address] [place] [address] Glucose [Mass/Vol] 93 mg/dL Normal 65-99 [facility] Comment on above: Performed By: #### Amadou CALLAHAN, 98425-7 #### [facility] ([id number]) [address] [place] [address] Potassium [Moles/Vol] 4.4 mmol/L Normal 3.5-5.0 [facility] Comment on above: Performed By: #### Amadou CALLAHAN, 70324-2 #### [facility] ([id number]) [address] [place] [address] Protein [Mass/Vol] 6.8 g/dL Normal 6.0-8.0 [facility] Comment on above: Performed By: #### Amadou CALLAHAN, 46553-7 #### [facility] ([id number]) [address] [place] [address] Sodium [Moles/Vol] 139 mmol/L Normal 134-146 [facility] Comment on above: Performed By: #### Amadou CALLAHAN, 66591-0 #### [facility] ([id number]) [address] [place] [address] Urea nitrogen [Mass/Vol] 11 mg/dL Normal 5-27 [facility] Comment on above: Performed By: #### Amadou CALLAHAN, 21153-2 #### [facility] ([id number]) [address] [place] [address] Lipid 1996 panelon 4 Cholesterol [Mass/Vol] 134 mg/dL Low 150-200 [facility] Comment on above: Performed By: #### Amadou CALLAHAN, 20419-5 #### [facility] ([id number]) [address] [place] [address] Cholesterol in HDL [Mass/Vol] 38 mg/dL Low >39 [facility] Comment on above: Result Comment: HDL <40 mg/dL - High Risk HDL > or = 40mg/dL- Desirable HDL >60 mg/dL - Negative Risk Performed By: #### Amadou CALLAHAN, 19903-0 #### [facility] ([id number]) [address] [address] Cholesterol in LDL [Mass/Vol] 67 mg/dL Normal <130 [facility] Comment on above: Result Comment: LDL <100 mg/dL - Desirable LDL >160 mg/dL - High Risk Performed By: #### Amadou CALLAHAN, 42566-3 #### [facility] ([id number]) [address] [address] Cholesterol in VLDL [Mass/Vol] 29 mg/dL Normal 0-30 [facility] Comment on above: Performed By: #### Amadou CALLAHAN, 50901-4 #### [facility] ([id number]) [address] [address] CHOLESTEROL:HDL 3.5 Normal 1.0-5.0 [facility] Comment on above: Performed By: #### Amadou CALLAHAN, 93888-0 #### [facility] ([id number]) [address] [address] Triglyceride [Mass/Vol] 146 mg/dL Normal 27-150 [facility] Comment on above: Performed By: #### Amadou CALLAHAN, 83795-5 #### [facility] ([id number]) [address] [address] [address] LUNG CANCER SCREENINGon 0 - CT LUNG CANCER SCREENING EXAMINATION: CT LUNG [...] by: MARSHA MCMILLAN Date: 2023-01-27 07:50 Normal [facility] Vital Signs Date Time Vital Sign Value Performing Clinician Monae banks 08-20-2024 13:01-0500 Body height 180.3 cm [employer] Phone: [facility] 08-20-2024 13:01-0500 Body mass index (BMI) [Ratio] 20.85 kg/m2 [employer] Phone: [facility] 08-20-2024 13:01-0500 Body temperature 97.9 [degF] [employer] Work Phone: [facility] 08-20-2024 13:01-0500 Body weight 67.81 kg [employer] Phone: [facility] 08-20-2024 13:01-0500 Diastolic blood pressure 64 mm[Hg] [employer] Phone: [facility] 08-20-2024 13:01-0500 Heart rate 67 /min Skip Furlong DO Work Phone: [facility] [employer] 08-20-2024 13:01-0500 Respiratory rate 20 /min Skip Furlong DO Work Phone: [facility] 08-20-2024 13:01-0500 SaO2% (BldA) [Mass fraction] 95 % Skip Furlong DO Work Phone: [facility] 08-20-2024 13:01-0500 Systolic blood pressure 120 mm[Hg] Skip Furlong DO Work Phone: [facility] 11-10-2023 13:49-0500 Body height 180.3 cm Skip Furlong DO Work Phone: [facility] 11-10-2023 13:49-0500 Body mass index (BMI) [Ratio] 21.35 kg/m2 Skip Furlong DO Work Phone: [facility] 11-10-2023 13:49-0500 Body temperature 98.2 [degF] Skip Furlong DO Work Phone: [facility] 11-10-2023 13:49-0500 Body weight 69.45 kg Skip Furlong DO Work Phone: [facility] 11-10-2023 13:49-0500 Diastolic blood pressure 60 mm[Hg] Skip Furlong DO Work Phone: [facility] 11-10-2023 13:49-0500 Heart rate 78 /min Skip Furlong DO Work Phone: [facility] 11-10-2023 13:49-0500 SaO2% (BldA) [Mass fraction] 94 % Skip Furlong DO Work Phone: [facility] 11-10-2023 13:49-0500 Systolic blood pressure 98 mm[Hg] Skip Furlong DO Work Phone: [facility] Encounters Encounter Date Encounter Type Care Provider Facility Start: 10-22-2024 End: 10-22-2024 Refill Skip Navas DO Work Phone: [facility] - [facility] Comment on above: Pulmonary emphysema, unspecified emphysema type ([facility]-HCC) Start: 10-22-2024 End: 10-22-2024 [facility] Comment on above: Pulmonary emphysema, unspecified emphysema type ([facility]-HCC) Start: 09-17-2024 End: 09-17-2024 Refill Jada Francisco [facility] - [facility] Medicine Comment on above: Coronary arterioscle rosis Start: 08-26-2024 End: 08-27-2024 Refill Skip Navas DO Work Phone: [facility] - [facility] Medicine Comment on above: Anxiety Start: 08-20-2024 End: 08-20-2024 Office outpatient visit 25 minutes Skip Navas DO Work Phone: [facility] - [facility] Comment on above: Anxiety (Primary Dx) ; Pulmonary emphysema, unspecified emphysema type ([facility]-HCC); Persistent insomnia Start: 08-20-2024 End: 08-20-2024 ambulatory [place] Daniele NAVAS [facility] Start: 07-27-2024 End: 07-27-2024 Refill Skip Navas DO Work Phone: [facility] Internal Medicine - Family Medicine Comment on above: Pulmonary emphysema, unspecified emphysema type ([facility]) Start: 07-27-2024 End: 07-30-2024 Refill Skip Navas DO Work Phone: [facility] Internal Medicine - Family Medicine Comment on above: Pulmonary emphysema, unspecified emphysema type ([facility]) Start: 06-27-2024 End: 06-27-2024 Refill Skip Mirzang DO [facility] Comment on above: Pulmonary emphysema, unspecified emphysema type ([facility]); Anxiety Start: 05-17-2024 End: 05-17-2024 ambulatory [facility] Start: 05-17-2024 End: 05-17-2024 ambulatory [facility] Start: 05-10-2024 End: 05-10-2024 ambulatory [facility] Start: 05-10-2024 Encounter for genera l adult medical examination without abnormal findings [facility] Start: 02-09-2024 End: 02-09-2024 ambulatory [facility] Start: 12-07-2023 Telephone encounter Patricia Cardenas [facility] Phys[facility] General Surgery Start: 12-02-2023 Refill Hue Lombardi [facility] Internal Medicine - Family Medicine Comment on above: Anxiety Start: 11-29-2023 End: 11-30-2023 ambulatory [facility] Start: 11-29-2023 End: 11-29-2023 ambulatory [facility] Start: 11-16-2023 End: 11-17-2023 ambulatory [facility] Start: 11-11-2023 Orders Only Skip mariano DO Work Phone: [facility] Comment on above: Coronary arterioscle rosis (Primary Dx) Start: 11-10-2023 End: 11-10-2023 Office outpatient visit 25 minutes Skip Navas DO Work Phone: [facility] Internal Medicine - Family Medicine Comment on above: Pulmonary emphysema, unspecified emphysema type ([facility]) (Primary Dx); Anxiety; Other acute pulmonary embolism, unspecified whether acute cor pulmonale present ([facility]); Supraventricular tachycardia; Coronary arteriosclerosis; Cigarette smoker; Neoplasm of uncertain behavior of skin; Herpes simplex Start: 11-10-2023 End: 11-10-2023 ambulatory [facility] Start: 11-10-2023 End: 11-10-2023 ambulatory SKIP NAVAS [facility] Start: 11-02-2023 Refill Skip mariano DO Work Phone: [facility] Start: 10-03-2023 Refill Hue Lombardi [facility] - Family Medicine Comment on above: Anxiety Start: 01-26-2023 End: 01-27-2023 ambulatory KRISSY JOHNSTON Facility:H1 Procedures Date Procedure Procedure Detail Performing Clinician Start: 08-20-2024 Adult depression screening assessment Skip Navas DO Work Phone: Start: 05-17-2024 Adult depression screening assessment Skip Navas DO Work Phone: Start: 11-10-2023 Adult depression screening assessment Skip Navas DO Work Phone: Start: 08-09-2023 Adult depression screening assessment Hue Lombardi CMA Plan of Treatment Date Care Activity Detail Author Start: 04-27-2033 DTaP,Tdap and Td Vaccines (2 - Td or Tdap) DTaP,Tdap and Td Vaccines (2 - Td or Tdap) [facility] Start: 08-20-2025 Adult BMI Screening Adult BMI Screen ing [facility] Start: 08-20-2025 Depression Screening Depression Scre ening [facility] Start: 08-20-2025 Fall Risk Screening Fall Risk Screen ing [facility] Start: 08-20-2025 Tobacco Screening Tobacco Screening [facility] Start: 07-09-2025 Screening for malign ant neoplasm of colon Colon Cancer Screening 3 Year Cologuard [facility] Start: 05-17-2025 Adult BMI Screening Adult BMI Screen ing [facility] Start: 05-17-2025 Depression Screening Depression Scre ening [facility] Start: 05-17-2025 Fall Risk Screening Fall Risk Screen ing [facility] Start: 05-17-2025 Tobacco Screening Tobacco Screening [facility] Start: 05-10-2025 Medicare Annual Well ness Visit Medicare Annual Wellness Visit [facility] Start: 05-10-2025 Tobacco Counseling Tobacco Counselin g [facility] Start: 02-06-2025 Tobacco Counseling Tobacco Counselin g [facility] Start: 2024 Adult BMI Screening Adult BMI Screen ing [facility] Start: 2024 Tobacco Screening Tobacco Screening [facility] Start: 11-15-2024 End: 11-15-2024 Patient encounter procedure 11/15/2024 2:15 PM EST Office Visit [facility] Phys[facility] Internal Medicine - Family Medicine [address] [place] [address] Skip Navas, DO [address], [facility] [place] [address] [facility] Internal Medicine - Family Medicine Start: 11-10-2024 Adult BMI Screening Adult BMI Screen ing [facility] Start: 11-10-2024 Depression Screening Depression Scre ening [facility] Start: 11-10-2024 Tobacco Screening Tobacco Screening [facility] Start: 10-12-2024 COVID-19 Vaccine ( season) COVID-19 Vaccine () [facility] Start: 08-20-2024 End: 08-20-2024 Patient encounter procedure 08/20/2024 1:00 PM EST Office Visit [facility] Internal Medicine - Family Medicine [address] [place] [address] Skip Navas, DO [address], [facility] [place] [address] [facility] Internal Medicine - Family Medicine Start: 08-09-2024 Adult BMI Screening Adult BMI Screen ing [facility] Start: 08-09-2024 Depression Screening Depression Scre ening [facility] Start: 08-09-2024 Fall Risk Screening Fall Risk Screen ing [facility] Start: 08-09-2024 Tobacco Screening Tobacco Screening [facility] Start: 05-27-2024 Influenza vaccination Influenza Vacc ine [facility] Start: 02-09-2024 End: 02-09-2024 Patient encounter procedure 02/09/2024 1:30 PM EDT Office Visit [facility] Internal Medicine - Family Medicine [address] [place] [address] Skip Navas, DO [address], [place] [address] [facility] Internal Medicine - Family Medicine Start: 12-31-2023 Medicare Annual Well ness Visit Medicare Annual Wellness Visit [facility] Start: 11-29-2023 End: 11-29-2023 Patient encounter procedure 11/29/2023 10:30 AM EST Office Visit [facility] General Surgery [address] [place] [id number] Roya Sesay MD [address] [place] [id number] [facility] General Surgery Start: 11-16-2023 End: 11-16-2023 Patient encounter procedure 11/16/2023 9:30 AM EST Appointment [facility] - Pulmonary Function [address] [place] [address] Skip Navas, DO [address], [place] [address] [facility] - Pulmonary Function Start: 11-10-2023 End: 11-10-2023 Patient encounter procedure 11/10/2023 1:30 PM EST Office Visit [facility] Phys[facility] Internal Medicine - Family Medicine [address] [place] [address] Skip Navas, DO [address], [place] [address] [facility] Internal Medicine - Family Medicine Start: 05-27-2023 COVID-19 Vaccine ( season) COVID-19 Vaccine () [facility] Start: 05-27-2023 Influenza vaccination Influenza Vacc ine [facility] Start: 01-31-2021 COVID-19 Vaccine (3 - Pfizer risk series) COVID-19 Vaccine (3 - Pfizer risk series) [facility] End: 11-10-2024 Pulmonary function test Complete PFT w/ BD (Spirometry (Flow Volume Loop) pre/post short acting bronchodilator w/ DLCO (diffusion study) and Lung Volume) Pulmonary function test Complete PFT w/ BD (Spirometry (Flow Volume Loop) pre/post short acting bronchodilator w/ DLCO (diffusion study) and Lung Volume) PFT Routine Pulmonary emphysema, unspecified emphysema type ([facility] 1 Occurrences starting 11/10/2023 until 11/10/[address] [facility] Work Phone: Comment on above: 1 Occurrences starti ng 11/10/2023 until 11/10/2024 Immunizations Immunization Date Immunization Notes Care Provider [facility] 08-17-2024 influenza, high dose seasonal, preservative-free Skip Furlong DO Work Phone: [facility] 06-30-2023 zoster vaccine recombinant Skip Furlong DO Work Phone: [facility] 04-27-2023 tetanus toxoid, redu ray diphtheria toxoid, and acellular pertussis vaccine, adsorbed Skip Furlong DO Work Phone: [facility] 04-13-2023 zoster vaccine recombinant Skip Furlong DO Work Phone: [facility] 03-26-2023 Pneumococcal Conjuga te 20-valent Skip Furlong DO Work Phone: [facility] 06-16-2020 influenza, injectabl e, quadrivalent, preservative free Hue Lombardi [facility] Work Phone: 06-16-2020 influenza virus vaccine, unspecified formulation Hue Lombardi [facility] 08-30-2019 Seasonal, quadrivale nt, recombinant, injectable influenza vaccine, preservative free Hue Lombardi [facility] 07-06-2016 influenza, injectabl e, quadrivalent, preservative free Hue Lombardi [facility] 08-07-2015 influenza, injectabl e, quadrivalent, preservative free Huegene Lombardi [facility] 09-15-2009 novel [id number], preservative-free, injectable Hue Lombardi [facility] Payers Date Payer Category Payer Medicare ANTHEM MEDICARE AN[employer]M MEDICARE ADVANTAGE [id number] 2022- [phone] [id number] [place] [address] [id number] 2022 Medicare HMO AN[employer]M MEDICARE [id number] 1959 Unknown [id number] 1958 Unknown [id number] 3 1958 Unknown [id number] 86 1958 Unknown [id number] 86 1958 Unknown [id number] 86 1958 Unknown [id number] 86 1958 Unknown [id number] 86 1958 Unknown [id number] 86 1958 Unknown [id number] 86 1958 Unknown [id number] 86 1958 Unknown [id number] 86 1958 Unknown [id number] 86 Social History Date Type Detail Facility Start: 10-13-2022 End: 05-17-2024 Tobacco smoking status VAIS Smokes tobacco daily [facility] History of tobacco use Cigarette Smoker P [facility] Start: 10-13-2022 End: 08-20-2024 Cigarettes smoked current (pack per day) - Reported 1 [facility] Start: 10-13-2022 End: 05-17-2024 Tobacco use and exposure Smokeless tobacco non-user [facility] Start: 08-09-2023 End: 08-20-2024 Alcohol intake Current drinker of alcohol (finding) [facility] Start: 10-13-2022 End: 08-20-2024 Social connection and isolation panel [facility] Do you belong to any clubs or organizations such as zoroastrianism groups, unions, fraternal or athletic groups, or school groups? No [facility] Are you now , , , , never or living with a partner? [facility] How often to you hav e a drink containing alcohol? 4 or more times a week [facility] How many standard dr inks containing alcohol do you have on a typical day? 1 or 2 [facility] How often do you hav e 6 or more drinks on 1 occasion? Less than monthly [facility] How hard is it for y ou to pay for the very basics like food, housing, medical care, and heating Somewhat hard [facility] Adolescent depressio n screening assessment 0 [facility] Do you feel stress - tense, restless, nervous, or anxious, or unable to sleep at night because your mind is troubled all the time - these days [OSQ] To some extent [facility] Start: 10-13-2022 Tobacco Comment Pt tried and f brent gum and patches [facility] Start: 1960 Sex Assigned At Not on file P [facility] How hard is it for y ou to pay for the very basics like food, housing, medical care, and heating Hard [facility] Start: 05-01-2015 Sex Male (finding) [facility] Clinical Notes 11-10-2023 to 08-20-2024 Skip Navas, - 08/20/2024 1:00 PM ESTTelephone Encounter - Patricia Cardenas, [facility] - 12/07/2023 12:02 PM EDTTelephone Encounter - Patricia Cardenas, [facility] - 12/07/2023 12:02 PM EDTPatient Instructions Note Date & Type Note Facility 08-20-2024 History of Presen t illness Narrative Subjective Patient ID: Felecia Cunha is a 63 y.o. male. Gregory presents for controlled substance visit. The xanax is working great . He is not having any side effects. He needs a refill on his albuterol inhaler. He uses it about twice a day. Said he is also using the Trelegy once a day. He should have run out though. He is using trazodone for sleep and it is working well. He would like a refill of that. The following portions of the patient's history were reviewed and updated as appropriate: allergies, current medications, past family history, past medical history, past social history, past surgical history, problem list, and medication reconciliation was completed including current medication and post discharge medication. Review of Systems Constitutional: Negative. Respiratory: Positive for shortness of breath and wheezing. Genitourinary: Negative. Skin: Negative. Psychiatric/Behavioral: Positive for sleep disturbance. Objective Physical Exam Vitals reviewed. Constitutional: General: He is not in acute distress. Appearance: He is normal weight. Eyes: General: No scleral icterus. Extraocular Movements: Extraocular movements intact. Conjunctiva/sclera: Conjunctivae normal. Cardiovascular: Rate and Rhythm: Normal rate and regular rhythm. Pulses: Normal pulses. Heart sounds: Normal heart sounds. No murmur heard. Pulmonary: Effort: Pulmonary effort is normal. No respiratory distress. Breath sounds: Decreased air movement present. Examination of the right-upper field reveals decreased breath sounds. Examination of the left-upper field reveals decreased breath sounds. Examination of the right-middle field reveals decreased breath sounds. Examination of the left-middle field reveals decreased breath sounds. Examination of the right-lower field reveals decreased breath sounds. Examination of the left-lower field reveals decreased breath sounds. Decreased breath sounds present. No wheezing, rhonchi or rales. Musculoskeletal: Cervical back: Neck supple. Lymphadenopathy: Cervical: No cervical adenopathy. Neurological: General: No focal deficit present. Mental Status: He is alert and oriented to person, place, and time. Psychiatric: Attention and Perception: Attention normal. Mood and Affect: Mood and affect normal. Speech: Speech normal. Behavior: Behavior normal. Behavior is cooperative. Thought Content: Thought content normal. Cognition and Memory: Cognition normal. Judgment: Judgment normal. Assessment/Plan Felecia was seen today for 3 month controlled medication. Diagnoses and all orders for this visit: Anxiety He is using high risk medication with benefit. He is not having any side effects. In his helping improve his quality of life. The OARRS/MAPPS database was reviewed today and found to be appropriate. No indication of medication diversion, or non compliance. Pulmonary emphysema, unspecified emphysema type ([facility]) - VENTOLIN HFA 90 mcg/actuation inhaler; INHALE 2 PUFFS BY MOUTH EVERY 4 HOURS NEEDED FOR WHEEZING FOR SHORTNESS OF BREATH Renew Ventolin inhaler. Encouraged to stay on Trelegy and daily resp. Persistent insomnia Doing well on trazodone. Continue current regimen-medication renewed Other orders - traZODone (DESYREL) 100 mg tablet; Take 1 tablet (100 mg total) by mouth nightly. documented in this encounter [facility] 12-07-2023 Miscellaneous Notes ----- Message from Roya [...] no further questions. documented in this encounter [facility] 12-07-2023 Telephone encounter Note ----- Message from Roya Sesay MD sent at 12/06/2023 6:33 PM EDT ----- Regarding: Pathology Please let patient know that lesion removed was benign seborrheic keratosis. Follow-up as needed. Thank you ----- Message ----- From: Maribel Ragland Sent: 12/06/2023 2:13 PM EDT To: Roya Sesay MD [facility] 12-07-2023 Telephone encounter Note Spoke with patient regarding pathology results. Patient verbally understood with no further questions. [facility] 11-10-2023 History of Presen t illness [...] continues to smoke. He has tried various auif-eyg-oaihobl medications to stop like patches and lozenges [...] Positive for sleep disturbance. 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 Constitutional: General: He is not [...] this visit: Pulmonary emphysema, unspecified emphysema type ([facility]) - nqregrzjnme-rfxzgrzko-tdeiiqlp (TRELEGY ELLIPTA) 200-62.5-25 mcg blister with device; [...] embolism, unspecified whether acute cor pulmonale present ([facility]) Stable. Supraventricular tachycardia - Comprehensive metabolic panel; [...] disability. 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 Continue aspirin. Check [...] Neoplasm of uncertain behavior of skin - [facility] Physicians General Surgery - [place], [place]; Future Not clear what this lesion is but since it recurs and has been there for over a month then it should be removed. I will refer him to General surgery. Herpes simplex - famciclovir (FAMVIR) 250 mg tablet; Take 1 tablet (250 mg total) by mouth in the morning and 1 tablet (250 mg total) before bedtime. documented in this encounter [facility] 11-10-2023 Instructions Skip Navas DO - 11/10/2023 1:30 PM EST Are You Ready To Kick The Habit? Free Tobacco Cessation Resources [facility] Services [facility] Tobacco Treatment Centers provide all employees with free tobacco cessation services that include: Counseling to understand nicotine addiction Education about medications that can help you successfully quit Assistance with developing a plan to quit Call to set up an individual appointment or find out when group classes will be held: [facility]: [phone] [facility]: [phone] [facility]: [phone] [facility]: [phone] Quit Smoking Action Plan and Resources [facility] offers an eight-week, online smoking cessation plan to all [facility] employees, regardless of whether [place] is your medical insurance provider. Go to www.[employer].[email or web address]/employeewell ness and click the Health Risk Assessment and Resources link to get started. In the [employer] menu, click Action Plans instead of Health Risk Assessment to access the Quit Smoking Action Plan. Additional smoking cessation resources are also available to all [facility] employees on the [employer] web page at www.[employer]/quit smoking. [place] Tobacco Cessation Program If [employer] is your medical insurance provider, there are more free resources available to you, including: No copays or deductibles on local tobacco cessation counseling services to help you quit Prescription assistance for tobacco cessation medications to help you quit For details about the tobacco cessation program available to [employer] members, go to www.[employer] (Search: Tobacco Cessation Program). [place] Tobacco Quit Line 2-975-OCHR-NOW ( ) is a toll-free, telephonic service that helps [place] residents quit smoking and using tobacco. It is staffed by experts who tailor a quit plan for you and provide you with advice. [place] Tobacco Quit Line 1-026-JVIW-NOW ( ) is a toll-free, telephonic service that helps [place] residents quit smoking and using tobacco. It is staffed by experts who tailor a quit plan for you and provide you with advice. Two weeks of nicotine replacement therapy may be provided at no charge, if needed. Additional Resources These national organizations also offer free information and resources to help you quit tobacco: [employer]--www.cancer.org/healthy/ stayawayfromtobacco [place] [employer]--www.heart.org (Search: Quit Smoking) Centers for Disease Control and Prevention--www.cdc.gov/tobacco [place] [employer]--www.lungusa.org documented in this encounter [facility] Diagnosis Anxiety Anxiety state, unspecified documented in this encounter [facility] Diagnosis Pulmonary emphysema, unspecified emphysema type ([facility])- Primary Anxiety Anxiety state, unspecified Other acute pulmonary embolism, unspecified whether acute cor pulmonale present ([facility]) Supraventricular tachycardia Other specified cardiac dysrhythmias Coronary arteriosclerosis Coronary atherosclerosis of unspecified type of vessel, chehalis or graft Cigarette smoker Tobacco use disorder Neoplasm of uncertain behavior of skin Herpes simplex Herpes simplex without mention of complication [facility] Coronary arteriosclerosis- Primary Coronary atherosclerosis of unspecified type of vessel, chehalis or graft [facility] Diagnosis Anxiety Anxiety state, unspecified [facility] Diagnosis Pulmonary emphysema, unspecified emphysema type (CMS-HCC) Anxiety Anxiety state, unspecified [facility] Diagnosis Pulmonary emphysema, unspecified emphysema type ([facility]-HCC) [facility] Diagnosis Pulmonary emphysema, unspecified emphysema type ([facility]-HCC) [facility] Diagnosis Anxiety- Primary Anxiety state, unspecified Pulmonary emphysema, unspecified emphysema type ([facility]-HCC) Persistent insomnia [facility] Diagnosis Anxiety Anxiety state, unspecified [facility] Diagnosis Coronary arteriosclerosis Coronary atherosclerosis of unspecified type of vessel, chehalis or graft [facility] Diagnosis Pulmonary emphysema, unspecified emphysema type ([facility]-HCC) documented [facility] encounter [facility] filedocumented in this encounter [facility] on filedocumented in this encounter [facility] on filedocumented in this encounter [facility] filedocumented in this encounter [facility] on filedocumented in this encounter [facility] on filedocumented in this encounter [facility] on filedocumented in this encounter [facility] SystemInstructionsNot on filedocumented in this encounter [facility] SystemReason for referral (narrative)* Consultation (Routine) - Pending Review Specialty Diagnoses / Procedures Referred By Sejal castorena Referred To Contact General Surgery Diagnoses Neoplasm of uncertain behavior of skin Skip Navas, DO [address] [facility], [place] [address] [facility] Gen Surg Grillis Lázaro [address] [place] [address] Referral ID Status Reason Start Date Expiration Date Visits Requested Visits Authorized [id number] Pending Review Specialty Services Required 11/10/2023 11/09/2024 1 1 [facility] Summary Purpose Family History No Family History [...] and content) DATE CREATED AUTHOR 02/03/2023 [facility] DATE CREATED AUTHOR AUTHOR'S ORGANIZ ATION 12/07/2023 [facility] DATE CREATED AUTHOR AUTHOR'S ORGANIZ ATION 05/19/2024 [facility] DATE CREATED AUTHOR AUTHOR'S ORGANIZ ATION 08/22/[address] [facility] Reason for Visit (unrecogniz ed section and content) Reason Onset Date Comments Med Refill 10/03/2023 Reason Comments Med Refill Reason Comments COPD 3 month check Reason Onset Date Comments Med Refill 12/02/2023 Reason Onset Date Comments Med Refill 07/27/2024 Reason Comments 3 month controlled medication Reason Onset Date Comments Med Refill 09/17/2024 Reason Onset Date Comments Med Refill 10/22/2024 Care Teams (unrecognized sec tion and content) Cds Sales Advisor Relationship Specialty Start Date End Date Skip Navas DO [address] [place] [address] PCP - General Family Medicine 07/12/22 Cds Sales Advisor Relationship Specialty Start Date End Date Skip Navas DO [address], [place] [address] PCP - General Family Medicine 07/12/22 Cds Sales Advisor Relationship Specialty Start Date End Date Skip Navas DO [address] [place] [address] PCP - General Family Medicine 07/12/22 Cds Sales Advisor Relationship Specialty Start Date End Date ArieshernandezSkip mariano DO [address] [place] [address] PCP - General Family Medicine 07/12/22 Cds Sales Advisor Relationship Specialty Start Date End Date ArieshernandezSkip mariano DO [address] [place] [address] PCP - General Family Medicine 07/12/22 Cds Sales Advisor Relationship Specialty Start Date End Date ArieshernandezSkip mariano DO [address] [place] [address] PCP - General Family Medicine 07/12/22 Cds Sales Advisor Relationship Specialty Start Date End Date Skip Navas DO [address] [place] [address] PCP - General Family Medicine 07/12/22 Cds Sales Advisor Relationship Specialty Start Date End Date ArieshernandezSkip mariano DO [address] [place] [address] PCP - General Family Medicine 07/12/22 Cds Sales Advisor Relationship Specialty Start Date End Date ArieshernandezSkip mariano DO [address] [place] [address] PCP - General Family Medicine 07/12/22 Cds Sales Advisor Relationship Specialty Start Date End Date Skip Navas DO [address], [facility] [place] [address] PCP - General Family Medicine 07/12/22 FOR [...] BE BASED ON THE PRIMARY CLINICAL RECORDS. [employer] [facility]. provides no warranty or guarantee of the accuracy or completeness of information in this document.
[2024-10-29 16:31] LABS: Internal Control Within Normal Limits; SARS-CoV-2 Ag NEGATIVE (NEGATIVE)
[2024-10-29 16:32] LABS: Influenza Virus A Antigen Positive; Influenza Virus B Antigen Negative; Internal Control Within Normal Limits
[2024-10-29] MEDS: LACTATED RINGER'S SOLUTION 1,000 ML 50 ML IV (16:38)
[2024-10-29] MEDS: IPRATROPIUM/ALBUTEROL SULFATE 3 ML AMPUL.NEB IH ×2 (16:52→22:02)
[2024-10-29] MEDS: OSELTAMIVIR PHOSPHATE 75 MG CAPSULE PO (17:09)
[2024-10-29] MEDS: NICOTINE 21 MG PATCH.TD24 TD (17:09)
[2024-10-29 17:17] LABS: Troponin I High Sensitivity 65.4 pg/mL (4.0-76.1)
[2024-10-29] MEDS: HEPARIN SODIUM (PORCINE) 5,000 UNIT/ML VIAL 5000 UNIT SUBQ (21:07)
[2024-10-29] MEDS: GUAIFENESIN 200 MG/DEXTROMETHORPHAN 20 MG 10 ML UNIT DOSE CUP PO (21:07)
[2024-10-29] MEDS: TRAZODONE HCL 50 MG TABLET 100 MG PO (21:07)
[2024-10-29] MEDS: BUDESONIDE 0.5 MG/2 ML AMPULE NEB IH (22:03)
--- NOTE | 2024-10-29 22:24 | RESP.RT ---
Pt having coughing spell. Pt requesting for his home inhaler. RT explained to patient he just had a breathing treatment and cannot use inhaler also.
[2024-10-30] VITALS (14 sets, daily range): BP systolic 105–119; BP diastolic 59–80; PULSE 62–115; TEMP 36.1–36.8; O2SAT 91–97
[2024-10-30] MEDS: ACETAMINOPHEN 500 MG TABLET 1000 MG PO ×2 (02:35→09:01)
[2024-10-30] MEDS: IPRATROPIUM/ALBUTEROL SULFATE 3 ML AMPUL.NEB IH ×2 (04:04→10:02)
[2024-10-30 05:53] LABS: Basophils Percent Auto 0.3 % (0.2-2.0); Hematocrit 41.1 % (42.0-54.0); Hemoglobin 13.6 g/dL (14.0-18.0); Immature Granulocytes Abs Auto 0.02 10^3/uL (0.00-0.03); Immature Granulocytes Pct Auto 0.3 % (0.0-0.5); Lymphocytes Absolute Auto 0.4 10^3/uL (1.2-3.8); Lymphocytes Percent Auto 6.9 % (20.5-60.0); Mean Corpuscular HGB Conc 33.1 g/dL (29.9-35.2); Mean Corpuscular Volume 102.8 fL (80.0-94.0); Mean Platelet Volume 10.1 fL (9.5-13.5); Monocytes Absolute Auto 0.5 10^3/uL (0.3-0.8); Monocytes Percent Auto 7.4 % (1.7-12.0); Neutrophils Absolute Auto 5.2 10^3/uL (1.4-6.5); Neutrophils Percent Auto 85.1 % (43.0-75.0); Platelet Count 160 10^3/uL (150-450); Red Cell Distribution Width 14.8 % (11.0-15.0); White Blood Count 6.1 10^3/uL (4.0-11.0)
--- OUTSIDE RECORDS SUMMARY | 2024-10-30 06:02 | XMS_ITS | CCD ---
Author Organization [facility] Care Team Providers Care Shipwright Supervisor Name Role Phone KRISSY JOHNSTON Attending Unavailable WEST, DR MARSHA Eli Consulting Unavailable FURLONG, DR SKIP [facility] Unavailable KRISSY JOHNSTON Admitting Unavailable KRISSY JOHNSTON Consulting Unavailable Furlong Skip NAYAK Primary Care Provider [phone] ROYA SESAY Referring Unavailable FURLONG, SKIP G [...] Drug Class(es) Dates Sig (Normalized) Sig (Original) [id number] 200 actuat albuterol 0.09 mg/actuat metered dose [...] Coronary arteriosclerosis; Translations: [Atherosclerotic heart disease of [place] coronary artery without angina pectoris] Onset: 10-13-2022 [...] URINEon 024 AMPHETAMINE/METHAMP Negative Normal NEG [facility] Comment on above: Result Comment: AMPH /METH screening cut off = 1000 ng/mL Performed By: #### D OJEDA #### [facility] ([id number]) [address] [place] [address] BARBITURATES Negative Normal NEG [facility] Comment on above: Result Comment: Olya iturates screening cut off value = 200 ng/mL Performed By: #### D OJEDA #### [facility] ([id number]) [address] [place] [address] BENZODIAZEPINES Positive Abnormal NEG [facility] Comment on above: Result Comment: Conf irmation available upon request. Benzodiazepines screening cut off value = 200 ng/mL Performed By: #### D OJEDA #### [facility] ([id number]) [address] [place] [address] CANNABINOIDS Negative Normal NEG [facility] Comment on above: Result Comment: Jose abinoids/THC screening cut off value = 50 ng/mL Performed By: #### D OJEDA #### [facility] ([id number]) [address] [place] [address] COCAINE METABOLITE Negative Normal NEG [facility] Comment on above: Result Comment: Coca ine screening cut off value = 300 ng/mL Performed By: #### D OJEDA #### [facility] ([id number]) [address], [address] [place] [address] ECSTASY Positive Abnormal NEG [facility] Comment on above: Result Comment: Inte rference from Buproprion or Labetalol may cause a positive result, confirmation available upon request. Ecstasy screening cut off value = 500 ng/mL This report is intended for use in clinical monitoring or management of patients. Performed By: #### D OJEDA #### [facility] ([id number]) [address] [place] [address] METHADONE Negative Normal NEG [facility] Comment on above: Result Comment: Meth adone screening cut off value = 300 ng/mL. Performed By: #### D OJEDA #### [facility] ([id number]) [address] [place] [address] OPIATES Negative Normal NEG [facility] Comment on above: Result Comment: Opia stevenson screening cut off value = 300 ng/mL NOTE: This test is used for the detection of codeine, hydrocodone (>1000 ng/mL), morphine and hydromorphone (>900 ng/mL) in urine. Performed By: #### D OJEDA #### [facility] ([id number]) [address] [facility], [address] [address] OXYCODONE Negative Normal NEG [facility] Comment on above: Result Comment: Oxyc odone screening cut off value = 300 ng/mL NOTE: This test is used for the detection of oxycodone and oxymorphone in urine. Performed By: #### D OJEDA #### [facility] ([id number]) [address] [address] PHENCYCLIDINE Negative Normal NEG [facility] Comment on above: Result Comment: Phen cyclidine screening cut off value = 25 ng/mL Performed By: #### D OJEDA #### [facility] ([id number]) [address] [address] Surgical Pathologyon 024 Surgical Pathology Normal [facility] Comment on above: Result Comment: [facility] [address] [place] [address] Surgical Pathology Consultation Patient Name:FELECIA CUNHA:1960 (Age: 63)Gender:MTaken:4Reported:4Physician(s):Mahesh Sesay MD ([phone])Copy To: Rec. #:[id number]: #[id number] Final Pathologic Diagnosis Left buttock: Traumatized seborrheic keratosis and granulation tissue. Clinical correlation is indicated. NOTE: The above diagnosis is from [facility]. Please see the complete text of their report in the patient???s electronic medical record. Report Electronically Signed Out [facility]/12/06/2023Roxy Harvey MD Interpretation performed at [facility], [address] [place] [address], License number: [id number]. Clinical History Neoplasm of uncertain behavior of [...] specimen submitted in cassette B???C. (3, ns, [id number], A???C, m2) [facility]/11/30/2023EAK Specimen(s) Received Left buttock Fee Codes(s): 1; 09533 Comprehensive metabolic pane [facility] 11-11-2023 Albumin [Mass/Vol] 3.7 g/dL 3.2 - 5.3 g/dL [facility] ALP [Catalytic activity/Vol] 115 U/L 39 - 130 U/L [facility] ALT No additional P-5'-P [Catalytic activity/Vol] 10 U/L 0 - 40 U/L [facility] Anion gap [Moles/Vol] 5 mmol/L 5 - 15 mmol/L [facility] AST [Catalytic activity/Vol] 14 U/L 0 - 41 U/L [facility] Bilirubin [Mass/Vol] 0.5 mg/dL 0.3 - 1 .2 mg/dL [facility] Calcium [Mass/Vol] 8.7 mg/dL 8.5 - 10. 5 mg/dL [facility] Chloride [Moles/Vol] 104 mmol/L 98 - 10 9 mmol/L [facility] CO2 [Moles/Vol] 30 mmol/L 22 - 32 mmol/L [facility] Creatinine [Mass/Vol] 0.92 mg/dL 0.60 - 1.30 mg/dL [facility] Comment on above: METHOD TRACEABLE TO [facility] STANDARD eGFR (CKD-EPI)non-race dependent - PINF [facility] Comment on above: Reported eGFR is based on the CKD-EPI 2020 equation that does not use a race coefficient. Glucose [Mass/Vol] 93 mg/dL 65 - 99 mg/dL [facility] Potassium [Moles/Vol] 4.4 mmol/L 3.5 - 5.0 mmol/L [facility] Protein [Mass/Vol] 6.8 g/dL 6.0 - 8.0 g/dL [facility] Sodium [Moles/Vol] 139 mmol/L 134 - 146 mmol/L [facility] Urea nitrogen [Mass/Vol] 11 mg/dL 5 - 27 mg/dL [facility] Lipid 1996 panelon 4 Cholesterol [Mass/Vol] 134 mg/dL Low 150 - 200 mg/dL [facility] Cholesterol in HDL [Mass/Vol] 38 mg/dL Low 39 - PINF mg/dL [facility] Comment on above: HDL <40 mg/dL - High Risk HDL > or = 40mg/dL- Desirable HDL >60 mg/dL - Negative Risk Cholesterol in LDL [Mass/Vol] 67 mg/dL NINF - 130 mg/dL [facility] Comment on above: LDL <100 mg/dL - Desirable LDL >160 mg/dL - High Risk Cholesterol in VLDL [Mass/Vol] 29 mg/dL 0 - 30 mg/dL [facility] Cholesterol.total/Cho lesterol in HDL [Mass ratio] 3.5 {ratio} 1.0 - 5.0 [facility] Interpretation and review of laboratory results Abnormal [facility] Triglyceride [Mass/Vol] 146 mg/dL 27 - 150 mg/dL [facility] No Panel Informationon 11-11 [facility] COMPREHENSIVE METABOLIC PANE Donato 11-10-2023 Albumin [Mass/Vol] 3.7 g/dL Normal 3.2-5.3 [facility] Comment on above: Performed By: #### Amadou CALLAHAN, 58650-7 #### [facility] ([id number]) [address] [place] [address] ALP [Catalytic activity/Vol] 115 U/L Normal 39-130 [facility] Comment on above: Performed By: #### Amadou CALLAHAN, 67792-6 #### [facility] ([id number]) [address] [place] [address] ALT [Catalytic activity/Vol] 10 U/L Normal 0-40 [facility] Comment on above: Performed By: #### Amadou CALLAHAN, 76816-0 #### [facility] ([id number]) [address] [place] [address] Anion gap [Moles/Vol] 5 mmol/L Normal 5-15 [facility] Comment on above: Performed By: #### Amadou CALLAHAN, 58520-3 #### [facility] ([id number]) [address] [place] [address] AST [Catalytic activity/Vol] 14 U/L Normal 0-41 [facility] Comment on above: Performed By: #### Amadou CALLAHAN, 75052-4 #### [facility] ([id number]) [address] [place] [address] Bilirubin [Mass/Vol] 0.5 mg/dL Normal 0.3-1.2 [facility] Comment on above: Performed By: #### Amadou CALLAHAN, 12237-4 #### [facility] ([id number]) [address] [place] [address] Calcium [Mass/Vol] 8.7 mg/dL Normal 8.5-10.5 [facility] Comment on above: Performed By: #### Amadou CALLAHAN, 46395-8 #### [facility] ([id number]) [address] [place] [address] Chloride [Moles/Vol] 104 mmol/L Normal 98-109 [facility] Comment on above: Performed By: #### Amadou CALLAHAN, 94025-5 #### [facility] ([id number]) [address] [place] [address] CO2 [Moles/Vol] 30 mmol/L Normal 22-32 [facility] Comment on above: Performed By: #### Amadou CALLAHAN, 27076-7 #### [facility] ([id number]) [address] [place] [address] Creatinine [Mass/Vol] 0.92 mg/dL Normal 0.60-1.30 [facility] Comment on above: Result Comment: METH OD TRACEABLE TO IDMS STANDARD Performed By: #### Amadou CALLAHAN, 93250-6 #### [facility] ([id number]) [address] [place] [address] eGFR (CKD-EPI) NON-RACE DEPENDENT >90 Normal >59 [facility] Comment on above: Result Comment: Reported eGFR is based on the CKD-EPI 2020 equation that does not use a race coefficient. Performed By: #### Amadou CALLAHAN, 84202-6 #### [facility] ([id number]) [address] [place] [address] Glucose [Mass/Vol] 93 mg/dL Normal 65-99 [facility] Comment on above: Performed By: #### Amadou CALLAHAN, 00889-9 #### [facility] ([id number]) [address] [place] [address] Potassium [Moles/Vol] 4.4 mmol/L Normal 3.5-5.0 [facility] Comment on above: Performed By: #### Amadou CALLAHAN, 97062-3 #### [facility] ([id number]) [address] [place] [address] Protein [Mass/Vol] 6.8 g/dL Normal 6.0-8.0 [facility] Comment on above: Performed By: #### Amadou CALLAHAN, 73364-1 #### [facility] ([id number]) [address] [place] [address] Sodium [Moles/Vol] 139 mmol/L Normal 134-146 [facility] Comment on above: Performed By: #### Amadou CALLAHAN, 24662-0 #### [facility] ([id number]) [address] [place] [address] Urea nitrogen [Mass/Vol] 11 mg/dL Normal 5-27 [facility] Comment on above: Performed By: #### Amadou CALLAHAN, 67870-5 #### [facility] ([id number]) [address] [place] [address] Lipid 1996 panelon 4 Cholesterol [Mass/Vol] 134 mg/dL Low 150-200 [facility] Comment on above: Performed By: #### Amadou CALLAHAN, 23180-4 #### [facility] ([id number]) [address] [place] [address] Cholesterol in HDL [Mass/Vol] 38 mg/dL Low >39 [facility] Comment on above: Result Comment: HDL <40 mg/dL - High Risk HDL > or = 40mg/dL- Desirable HDL >60 mg/dL - Negative Risk Performed By: #### Amadou CALLAHAN, 54767-5 #### [facility] ([id number]) [address] [address] Cholesterol in LDL [Mass/Vol] 67 mg/dL Normal <130 [facility] Comment on above: Result Comment: LDL <100 mg/dL - Desirable LDL >160 mg/dL - High Risk Performed By: #### Amadou CALLAHAN, 28631-6 #### [facility] ([id number]) [address] [address] Cholesterol in VLDL [Mass/Vol] 29 mg/dL Normal 0-30 [facility] Comment on above: Performed By: #### Amadou CALLAHAN, 04598-3 #### [facility] ([id number]) [address] [address] CHOLESTEROL:HDL 3.5 Normal 1.0-5.0 [facility] Comment on above: Performed By: #### Amadou CALLAHAN, 00624-4 #### [facility] ([id number]) [address] [address] Triglyceride [Mass/Vol] 146 mg/dL Normal 27-150 [facility] Comment on above: Performed By: #### Amadou CALLAHAN, 88949-1 #### [facility] ([id number]) [address] [address] [address] LUNG CANCER SCREENINGon 0 - CT [...] by: MARSHA MCMILLAN Date: 2023-01-27 07:50 Normal [facility] Vital Signs Date Time Vital Sign Value Performing Clinician Monae banks 08-20-2024 13:01-0500 Body height 180.3 cm [employer] Phone: [employer] 08-20-2024 13:01-0500 Body mass index (BMI) [Ratio] 20.85 kg/m2 [employer] Phone: [employer] 08-20-2024 13:01-0500 Body temperature 97.9 [degF] [employer] Work Phone: [employer] 08-20-2024 13:01-0500 Body weight 67.81 kg [employer] Phone: [employer] 08-20-2024 13:01-0500 Diastolic blood pressure 64 mm[Hg] [employer] Phone: [employer] 08-20-2024 13:01-0500 Heart rate 67 /min Skip Furlong DO Work Phone: [facility] [employer] 08-20-2024 13:01-0500 Respiratory rate 20 /min Skip Furlong DO Work Phone: [facility] [facility] 08-20-2024 13:01-0500 SaO2% (BldA) [Mass fraction] 95 % Skip Furlong DO Work Phone: [facility] [employer] [facility] 08-20-2024 13:01-0500 Systolic blood pressure 120 mm[Hg] Skip Furlong DO Work Phone: [facility] 11-10-2023 13:49-0500 Body height 180.3 cm Skip Furlong DO Work Phone: [facility] 11-10-2023 13:49-0500 Body mass index (BMI) [Ratio] 21.35 kg/m2 Skip Furlong DO Work Phone: [facility] 11-10-2023 13:49-0500 Body temperature 98.2 [degF] Skip Furlong DO Work Phone: [facility] 11-10-2023 13:49-0500 Body weight 69.45 kg Skip Furlong DO Work Phone: [facility] 11-10-2023 13:49-0500 Diastolic blood pressure 60 mm[Hg] Skip Furlong DO Work Phone: [facility] [facility] 11-10-2023 13:49-0500 Heart rate 78 /min Skip Furlong DO Work Phone: [facility] 11-10-2023 13:49-0500 SaO2% (BldA) [Mass fraction] 94 % Skip Furlong DO Work Phone: [facility] 11-10-2023 13:49-0500 Systolic blood pressure 98 mm[Hg] Skip Furlong DO Work Phone: [facility] Encounters Encounter Date Encounter Type Care Provider Facility Start: 10-22-2024 End: 10-22-2024 Refill Skip Navas DO Work Phone: [facility] - [facility] Comment on above: Pulmonary emphysema, unspecified emphysema type ([facility]-HCC) Start: 10-22-2024 End: 10-22-2024 [facility] Comment on above: Pulmonary emphysema, unspecified emphysema type (CMS-HCC) Start: 09-17-2024 End: 09-17-2024 Refill Jada Francisco [facility] Comment on above: Coronary arterioscle rosis Start: 08-26-2024 End: 08-27-2024 Refill Skip Navas DO Work Phone: [facility] Comment on above: Anxiety Start: 08-20-2024 End: 08-20-2024 Office outpatient visit 25 minutes Skip Navas DO Work Phone: [facility] Comment on above: Anxiety (Primary Dx) ; Pulmonary emphysema, unspecified emphysema type ([facility]-HCC); Persistent insomnia Start: 08-20-2024 End: 08-20-2024 ambulatory [place] Daniele NAVAS [facility] Start: 07-27-2024 End: 07-27-2024 Refill Skip Navas DO Work Phone: [facility] Comment on above: Pulmonary emphysema, unspecified emphysema type ([facility]-HCC) Start: 07-27-2024 End: 07-30-2024 Refill Skip Navas DO Work Phone: [facility] Comment on above: Pulmonary emphysema, unspecified emphysema type ([facility]-HCC) Start: 06-27-2024 End: 06-27-2024 Refill Skip Mirzang DO [facility] Comment on above: Pulmonary emphysema, unspecified emphysema type ([facility]-HCC); Anxiety Start: 05-17-2024 End: 05-17-2024 ambulatory [facility] Start: 05-17-2024 End: 05-17-[address] [facility] Start: 05-10-2024 End: 05-10-[address] [facility] Start: 05-10-2024 Encounter for genera l adult medical examination without abnormal findings [facility] Start: 02-09-2024 End: 02-09-[address] [facility] Start: 12-07-2023 Telephone encounter Patricia Cardenas [facility] Start: 12-02-2023 Refill Hue Lombardi [facility] - [facility] Medicine Comment on above: Anxiety Start: 11-29-2023 End: 11-30-2023 ambulatory [facility] Start: 11-29-2023 End: 11-29-2023 ambulatory [facility] Start: 11-16-2023 End: 11-17-2023 ambulatory [facility] Start: 11-11-2023 Orders Only Skip mariano DO Work [facility] Comment on above: Coronary arterioscle rosis (Primary Dx) Start: 11-10-2023 End: 11-10-2023 Office outpatient visit 25 minutes Skip Navas DO Work Phone: [facility] Comment on above: Pulmonary emphysema, unspecified emphysema type ([facility]) (Primary Dx); Anxiety; Other acute pulmonary embolism, unspecified whether acute cor pulmonale present ([facility]-H[facility]); Supraventricular tachycardia; Coronary arteriosclerosis; Cigarette smoker; Neoplasm of uncertain behavior of skin; Herpes simplex Start: 11-10-2023 End: 11-10-[address] [facility] Start: 11-10-2023 End: 11-10-2023 ambulatory SKIP NAVAS [facility] Start: 11-02-2023 Refill Skip mariano DO Work Phone: [facility] Start: 10-03-2023 Refill Hue Lombardi [facility] [...] (2 - Td or Tdap) [facility] Start: 08-20-2025 Adult BMI Screening Adult BMI Screen ing [facility] Start: 08-20-2025 Depression Screening Depression Scre ening [facility] Start: 08-20-2025 Fall Risk Screening Fall Risk Screen ing [facility] Start: 08-20-2025 Tobacco Screening Tobacco Screening [facility] Start: 07-09-2025 Screening for malign ant neoplasm of colon Colon Cancer Screening 3 Year Cologuard [facility] Start: 05-17-2025 Adult BMI Screening Adult BMI Screen ing [facility] Start: 05-17-2025 Depression Screening Depression Scre ening [facility] Start: 05-17-2025 Fall Risk Screening Fall Risk Screen ing [facility] Start: 05-17-2025 Tobacco Screening Tobacco Screening [facility] Start: 05-10-2025 Medicare Annual Well ness Visit Medicare Annual Wellness Visit [facility] Start: 05-10-2025 Tobacco Counseling Tobacco Counselin g [facility] Start: 02-06-2025 Tobacco Counseling Tobacco Counselin g [facility] Start: 2024 Adult BMI Screening Adult BMI Screen ing [facility] Start: 2024 Tobacco Screening Tobacco Screening [facility] Start: 11-15-2024 End: 11-15-2024 Patient encounter procedure 11/15/2024 2:15 PM EST Office Visit [facility] [address] [place] [address] Skip Navas, DO [address], [facility] [place] [address] [facility] Start: 11-10-2024 Adult BMI Screening Adult BMI Screen ing [facility] Start: 11-10-2024 Depression Screening Depression Scre ening [facility] Start: 11-10-2024 Tobacco Screening Tobacco Screening [facility] Start: 10-12-2024 COVID-19 Vaccine ( season) COVID-19 Vaccine () [facility] Start: 08-20-2024 End: 08-20-2024 Patient encounter procedure 08/20/2024 1:00 PM EST Office Visit [facility] [address] [place] [address] Skip Navas, DO [address], [facility] [place] [address] [facility] Start: 08-09-2024 Adult BMI Screening Adult BMI Screen ing [facility] Start: 08-09-2024 Depression Screening Depression Scre ening [facility] Start: 08-09-2024 Fall Risk Screening Fall Risk Screen ing [facility] Start: 08-09-2024 Tobacco Screening Tobacco Screening [facility] Start: 05-27-2024 Influenza vaccination Influenza Vacc ine [facility] Start: 02-09-2024 End: 02-09-2024 Patient encounter procedure 02/09/2024 1:30 PM EDT Office Visit [facility] [address] [place] [address] Skip Navas, DO [address] [place] [address] [facility] Start: 12-31-2023 Medicare Annual Well ness Visit Medicare Annual Wellness Visit [facility] Start: 11-29-2023 End: 11-29-2023 Patient encounter procedure 11/29/2023 10:30 AM EST Office Visit [facility] General Surgery [address] [place] [phone] Roya Sesay MD [address] [place] [id number] [facility] General Surgery Start: 11-16-2023 End: 11-16-2023 Patient encounter procedure 11/16/2023 9:30 AM EST Appointment [facility] - Pulmonary Function [address] [place] [address] Skip Navas, DO [address], [place] [address] [facility] - Pulmonary Function Start: 11-10-2023 End: 11-10-2023 Patient encounter procedure 11/10/2023 1:30 PM EST Office Visit [facility] [address] [place] [address] Skip Navas, DO [address], [place] [address] [facility] Start: 05-27-2023 COVID-19 Vaccine ( season) COVID-19 Vaccine () [facility] Start: 05-27-2023 Influenza vaccination Influenza Vacc ine [facility] Start: 01-31-2021 COVID-19 Vaccine (3 - Pfizer risk series) COVID-19 Vaccine (3 - Pfizer risk series) [facility] End: 11-10-2024 Pulmonary function test Complete PFT w/ BD (Spirometry (Flow Volume Loop) pre/post short acting bronchodilator w/ DLCO (diffusion study) and Lung Volume) Pulmonary function test Complete PFT w/ BD (Spirometry (Flow Volume Loop) pre/post short acting bronchodilator w/ DLCO (diffusion study) and Lung Volume) PFT Routine Pulmonary emphysema, unspecified emphysema type ([facility]) 1 Occurrences starting 11/10/2023 until 11/10/2024 [facility] Work Phone: Comment on above: 1 Occurrences starti ng 11/10/2023 until 11/10/2024 Immunizations Immunization Date Immunization Notes Care Provider [facility] 08-17-2024 influenza, high dose seasonal, preservative-free Skip Furlong DO Work Phone: [facility] 06-30-2023 zoster vaccine recombinant Skip Furlong DO Work Phone: [facility] 04-27-2023 tetanus toxoid, redu ray diphtheria toxoid, and acellular pertussis vaccine, adsorbed Skip Furlong DO Work Phone: [facility] 04-13-2023 zoster vaccine recombinant Skip Furlong DO Work Phone: [facility] 03-26-2023 Pneumococcal Conjuga te 20-valent Skip Furlong DO Work Phone: [facility] 06-16-2020 influenza, injectabl e, quadrivalent, preservative free Hue [facility] Work Phone: 06-16-2020 influenza virus vaccine, unspecified formulation Hue [facility] 08-30-2019 Seasonal, quadrivale nt, recombinant, injectable influenza vaccine, preservative free Hue Lombardi [facility] 07-06-2016 influenza, injectabl e, quadrivalent, preservative free Hue [facility] 08-07-2015 influenza, injectabl e, quadrivalent, preservative free Huegene [facility] 09-15-2009 novel [id number], preservative-free, injectable Hue [facility] Payers Date Payer Category Payer Medicare ANTHEM MEDICARE AN[employer]M MEDICARE ADVANTAGE [id number] 2022- [phone] [address] [place] [address] [id number] 2022 Medicare HMO ANTHEM MEDICARE [id number] 1959 Unknown [id number] 1958 Unknown [id number] 3 1958 Unknown [id number] 86 1958 Unknown [id number] 86 1958 Unknown [id number] 86 1958 Unknown [id number] 86 1958 Unknown [id number] 86 1958 Unknown [id number] 86 1958 Unknown [id number] 86 1958 Unknown [id number] 86 1958 Unknown [id number] 86 1958 Unknown [id number] 86 Social History Date Type Detail Facility Start: 10-13-2022 End: 05-17-2024 Tobacco smoking status KYIS Smokes tobacco daily [facility] History of tobacco use Cigarette Smoker P [facility] Start: 10-13-2022 End: 08-20-2024 Cigarettes smoked current (pack per day) - Reported 1 [facility] Start: 10-13-2022 End: 05-17-2024 Tobacco use and exposure Smokeless tobacco non-user [facility] Start: 08-09-2023 End: 08-20-2024 Alcohol intake Current drinker of alcohol (finding) [facility] Start: 10-13-2022 End: 08-20-2024 Social connection and isolation panel [facility] Do you belong to any clubs or organizations such as scientologist groups, unions, fraternal or athletic groups, or school groups? No [facility] Are you now , , , , never or living with a partner? [facility] How often to you hav e a drink containing alcohol? 4 or more times a week [facility] How many standard dr inks containing alcohol do you have on a typical day? 1 or 2 [facility] How often do you hav e 6 or more drinks on 1 occasion? Less than monthly [facility] How hard is it for y ou to pay for the very basics like food, housing, medical care, and heating Somewhat hard [facility] Adolescent depressio n screening assessment 0 [facility] Do you feel stress - tense, restless, nervous, or anxious, or unable to sleep at night because your mind is troubled all the time - these days [OSQ] To some extent [facility] Start: 10-13-2022 Tobacco Comment Pt tried and f brent gum and patches [facility] Start: 1960 Sex Assigned At Not on file P [facility] How hard is it for y ou to pay for the very basics like food, housing, medical care, and heating Hard [facility] Start: 05-01-2015 Sex Male (finding) [facility] Clinical Notes 11-10-2023 to 08-20-2024 Skip Navas, - 08/20/2024 1:00 PM ESTTelephone Encounter - Patricia Cardenas, [facility] - 12/07/2023 12:02 PM EDTTelephone Encounter - Patricia Cardenas, [facility] - 12/07/2023 12:02 PM EDTPatient Instructions Note [...] non compliance. Pulmonary emphysema, unspecified emphysema type ([facility]) - VENTOLIN HFA 90 mcg/actuation inhaler; INHALE 2 PUFFS BY MOUTH EVERY 4 HOURS NEEDED FOR WHEEZING FOR SHORTNESS OF BREATH Renew Ventolin inhaler. Encouraged to stay on Trelegy and daily resp. Persistent insomnia Doing well on trazodone. Continue current regimen-medication renewed Other orders - traZODone (DESYREL) 100 mg tablet; Take 1 tablet (100 mg total) by mouth nightly. documented in this encounter [facility] 12-07-2023 Miscellaneous Notes ----- Message from Roya [...] no further questions. documented in this encounter [facility] 12-07-2023 Telephone encounter Note ----- Message from Roya Sesay MD sent at 12/06/2023 6:33 PM EDT ----- Regarding: Pathology Please let patient know that lesion removed was benign seborrheic keratosis. Follow-up as needed. Thank you ----- Message ----- From: Maribel Ragland Sent: 12/06/2023 2:13 PM EDT To: Roya Sesay MD [facility] 12-07-2023 Telephone encounter Note Spoke with patient regarding pathology results. Patient verbally understood with no further questions. [facility] 11-10-2023 History of Presen t illness Narrative [...] continues to smoke. He has tried various swlk-vpt-djjqbch medications to stop like patches and lozenges [...] Positive for sleep disturbance. Objective Physical Exam No Experience present: declined. Constitutional: General: He is not [...] this visit: Pulmonary emphysema, unspecified emphysema type ([facility]) - pgruvraukko-jcmkxunmj-nhqhqxmf (TRELEGY ELLIPTA) 200-62.5-25 mcg blister with device; [...] embolism, unspecified whether acute cor pulmonale present ([facility]) Stable. Supraventricular tachycardia - Comprehensive metabolic panel; [...] disability. He is not ever seen a pediatric psychiatrist since according to him. Continue aspirin. Check [...] uncertain behavior of skin - [facility] - [place], [place]; Future Not clear what this lesion is but since it recurs and has been there for over a month then it should be removed. I will refer him to General surgery. Herpes simplex - famciclovir (FAMVIR) 250 mg tablet; Take 1 tablet (250 mg total) by mouth in the morning and 1 tablet (250 mg total) before bedtime. documented in this encounter [facility] 11-10-2023 Instructions Skip Navas DO - 11/10/2023 1:30 PM EST Are You Ready To Kick The Habit? Free Tobacco Cessation Resources [facility] Services [facility] provide all employees with free tobacco cessation services that include: Counseling to understand nicotine addiction Education about medications that can help you successfully quit Assistance with developing a plan to quit Call to set up an individual appointment or find out when group classes will be held: [facility]: [phone] [facility]: [phone] [facility]: [phone] [facility]: [phone] Quit Smoking Action Plan and Resources [facility] offers an eight-week, online smoking cessation plan to all [facility] employees, regardless of whether [employer] is your medical insurance provider. Go to www.mypromedica.org/employeewell ness and click the Health Risk Assessment and Resources link to get started. In the Gjlcc4Zrevxk menu, click Action Plans instead of Health Risk Assessment to access the Quit Smoking Action Plan. Additional smoking cessation resources are also available to all [facility] employees on the [employer] web page at www.AUTOFACT/quit smoking. [employer] Tobacco Cessation Program If [employer] is your medical insurance provider, there are more free resources available to you, including: No copays or deductibles on local tobacco cessation counseling services to help you quit Prescription assistance for tobacco cessation medications to help you quit For details about the tobacco cessation program available to [employer] members, go to www.AUTOFACT (Search: Tobacco Cessation Program). [place] Tobacco Quit Line 0-440-JWPR-NOW ( ) is a toll-free, telephonic service that helps [place] residents quit smoking and using tobacco. It is staffed by experts who tailor a quit plan for you and provide you with advice. [place] Tobacco Quit Line 3-011-VIWT-NOW ( ) is a toll-free, telephonic service that helps [place] residents quit smoking and using tobacco. It is staffed by experts who tailor a quit plan for you and provide you with advice. Two weeks of nicotine replacement therapy may be provided at no charge, if needed. Additional Resources These national organizations also offer free information and resources to help you quit tobacco: [place] [employer]--www.cancer.org/healthy/ stayawayfromtobacco [place] Heart [employer]--www.heart.org (Search: Quit Smoking) Centers for Disease Control and Prevention--www.cdc.gov/tobacco [place] Lung [employer]--www.lungusa.org documented in this encounter [facility] note Diagnosis Anxiety Anxiety state, unspecified documented in this encounter [facility]* Diagnosis Pulmonary emphysema, unspecified emphysema type ([facility] Primary Anxiety Anxiety state, unspecified Other acute pulmonary embolism, unspecified whether acute cor pulmonale present ([facility]) Supraventricular tachycardia Other specified cardiac dysrhythmias Coronary arteriosclerosis Coronary atherosclerosis of unspecified type of vessel, [place] or graft Cigarette smoker Tobacco use disorder Neoplasm of uncertain behavior of skin Herpes simplex Herpes simplex without mention of complication [facility] Diagnosis Coronary arteriosclerosis- Primary Coronary atherosclerosis of unspecified type of vessel, [place] or graft documented in this encounter [facility] [...] Coronary atherosclerosis of unspecified type of vessel, [place] or graft documented in this encounter [facility] [...] skin Skip Navas, DO [address], [place] [address] [facility] L[facility] [address] [place] [address] Referral ID Status Reason Start Date Expiration Date Visits Requested Visits Authorized [id number] Pending Review Specialty Services Required 11/10/2023 11/09/2024 1 1 [facility] Summary Purpose Family History No Family [...] and content) DATE CREATED AUTHOR 02/03/[address] [facility] DATE CREATED AUTHOR AUTHOR'S ORGANIZ ATION 12/07/2023 [facility] DATE CREATED AUTHOR AUTHOR'S ORGANIZ ATION 05/19/2024 [facility] DATE CREATED AUTHOR AUTHOR'S ORGANIZ ATION 08/22/2024 [facility] Reason for [...] Care Teams (unrecognized sec tion and content) Shipwright Supervisor Relationship Specialty Start Date End Date Skip Navas DO [address], [place] [address] PCP - General Family Medicine 07/12/22 Shipwright Supervisor Relationship Specialty Start Date End Date Skip Navas DO [address], [place] [address] PCP - General Family Medicine 07/12/22 Shipwright Supervisor Relationship Specialty Start Date End Date Skip Navas DO [address] [place] [address] PCP - General Family Medicine 07/12/22 Shipwright Supervisor Relationship Specialty Start Date End Date ArieshernandezSkip mariano DO [address] [place] [address] PCP - General Family Medicine 07/12/22 Shipwright Supervisor Relationship Specialty Start Date End Date ArieshernandezSkip mariano DO [address] [place] [address] PCP - General Family Medicine 07/12/22 Shipwright Supervisor Relationship Specialty Start Date End Date ArieshernandezSkip mariano DO [address] [place] [address] PCP - General Family Medicine 07/12/22 Shipwright Supervisor Relationship Specialty Start Date End Date Skip Navas DO [address] [place] [address] PCP - General Family Medicine 07/12/22 Shipwright Supervisor Relationship Specialty Start Date End Date ArieshernandezSkip mariano DO [address] [place] [address] PCP - General Family Medicine 07/12/22 Shipwright Supervisor Relationship Specialty Start Date End Date ArieshernandezSkip mariano DO [address] [place] [address] PCP - General Family Medicine 07/12/22 Shipwright Supervisor Relationship Specialty Start Date End Date Skip Navas DO [address], [facility] [place] [address] PCP - General Family Medicine 07/12/22 FOR [...] BE BASED ON THE PRIMARY CLINICAL RECORDS. [employer] [facility]. provides no warranty or guarantee of the accuracy or completeness of information in this document.
[2024-10-30 06:10] LABS: Alanine Aminotransferase 13 U/L (16-63); Albumin Globulin Ratio 0.8; Albumin Level 2.8 g/dL (3.4-5.0); Alkaline Phosphatase 95 U/L (46-116); Anion Gap 13.9; Aspartate Amino Transferase 37 U/L (15-37); BUN Creatinine Ratio 10.7; Bilirubin Total 0.3 mg/dL (0.2-1.0); Chloride 102 mmol/L (98-107); Estimated Average Glucose 105 mg/dL; Estimated GFR (African America >60 (>=60 mL/min/1.73m^2); Estimated GFR (Non-African Ame 55 (>=60 mL/min/1.73m^2); Globulin 3.7 g/dL; Glucose 109 mg/dL (74-106); Glycohemoglobin A1C 5.3 % (4.5-6.2); Potassium 3.9 mmol/L (3.5-5.1); Sodium 138 mmol/L (136-145); Total Protein 6.5 g/dL (6.4-8.2)
[2024-10-30 06:16] LABS: Troponin I High Sensitivity 56.3 pg/mL (4.0-76.1)
[2024-10-30 06:23] LABS: Cholesterol 93 mg/dL (<=200); HDL Cholesterol 46 mg/dL (40-60); LDL Cholesterol Calculated 35.6 mg/dL; Thyroid Stimulating Hormone 0.621 uIU/mL (0.358-3.740); Triglycerides 57 mg/dL (<=150); VLDL CHOLESTEROL 11.4 mg/dL
[2024-10-30] MEDS: OSELTAMIVIR PHOSPHATE 30 MG CAPSULE PO (09:01)
[2024-10-30] MEDS: HEPARIN SODIUM (PORCINE) 5,000 UNIT/ML VIAL 5000 UNIT SUBQ (09:01)
[2024-10-30] MEDS: ATORVASTATIN CALCIUM 40 MG TABLET PO (09:01)
[2024-10-30] MEDS: ASPIRIN 81 MG TAB.CHEW PO (09:01)
[2024-10-30] MEDS: DOCUSATE SODIUM 100 MG CAPSULE 200 MG PO (09:01)
[2024-10-30] MEDS: POLYETHYLENE GLYCOL 3350 17 GM POWDER PACKET PO (09:01)
--- NOTE | 2024-10-30 09:02 | PM.DS1 ---
DS: Providers Provider Date of admission: 10/29/24 15:33 Primary care physician: JULIETTE NAVAS Attending physician on admission: Casi Strickland Consults: 10/30/24 09:01 Physical Therapy Eval and Treat Routine Reason for consultation: weakness Has provider been notified: No Discharging clinician: Casi Strickland DS: Diagnosis Discharge Diagnosis (1) Pneumonia: Qualifiers: Laterality: right Lung location: middle lobe of lung Pneumonia type: due to unspecified organism Qualified Code(s): J18.9 - Pneumonia, unspecified organism (2) Influenza A virus present: (3) COPD exacerbation: (4) Chest pain: Qualifiers: Chest pain type: unspecified Qualified Code(s): R07.9 - Chest pain, unspecified (5) Hyperlipidemia: Qualifiers: Hyperlipidemia type: unspecified Qualified Code(s): E78.5 - Hyperlipidemia, unspecified (6) Insomnia disorder: Qualifiers: Insomnia type: primary Qualified Code(s): F51.01 - Primary insomnia (7) Generalized anxiety disorder: (8) Smoker: DS: Summary Hospital Course Hospital Course: Patient is a 63 y.o White male with past medical history of COPD, current smoker, HLD, insomnia, and anxiety who presented to the ER with 2-3 day history of not feeling well. He states he got very dizzy the last 2 days and today he lost his balance and fell down 15 stairs. He denies LOC. He has been having fevers, chills, productive cough, sore throat and chest pain. Patient notes a history of Sinus Tachycardia, 2007, had normal stress test at [facility]. Has not followed with Genetic Coordinator since then, had no issues. Chest pain is right sided, non radiating, worse when he is in a coughing fit. No sweating or arm pain. ER findings: WBCs 8.0, Cr 1.38, Trop 60, T 100.5, 93 HR, 92% on room air, RR 29, Covid negative and influenza A positive , lactate 1.7 CXR showed RML pneumonia, CT neck and Head- showed no acute processes. Troponin's x 3 all negative. Patient feels improved today. No oxygen requirements. He will be discharged home on Zpak for 5 days, and Tamiflu 30mg BID x 4 more days. He can use his inhaler every 4 hours for the next 2-3 days. He refuses home health services. He may return to the ER with any worsening signs or symptoms. He has close follow up with Primary care Doctor. Status at Discharge Functional status at discharge: uses cane/walker Overall status at discharge: patient is progressing back to baseline Time Spent with Patient Time attestation: Total time spent providing and/or coordinating discharge services: Time spent: greater than 30 minutes Exam Narrative Exam Narrative: General: Patient is alert, and oriented to person, place and time with normal affect, proper hygiene Skin: no visible rashes, or ulcers Head: atraumatic, acephalic Eyes: PERRLA, no nystagmus present, conjunctiva clear, no scleral icterus Ears: normal gross auditory acuity Neck: no masses palpated, normal thyroid, no JVD or audible carotid bruits Heart: Normal rate and rhythm, no murmurs/rubs/gallops Lungs: audible wheezes and crackles and diminished breath sounds all lung galeano Abdomen: Normal audible bowel sounds, no distension, No palpable masses, no organomegaly, no rebound/guarding/ or rigidity Musculoskeletal: no swelling bilateral lower extremities Neuro: CN II-X grossly intact Constitutional Vital Signs, click to edit/add: Last Vital Signs Temp 98.0 F 10/30/24 08:21 Pulse 88 10/30/24 08:21 Resp 18 10/30/24 08:21 BP 117/80 10/30/24 08:21 Pulse Ox 97 10/30/24 08:21 O2 Del Method Room Air 10/30/24 08:21 DS: Data Data Completed and Pending Labs on day of discharge: Labs from last 24 hours 10/30/24 10/29/24 10/29/24 05:25 16:53 16:05 WBC 6.1 RBC 4.00 L Hgb 13.6 L Hct 41.1 L MCV 102.8 H MCH 34.0 MCHC 33.1 RDW 14.8 Plt Count 160 MPV 10.1 Neut % (Auto) 85.1 H Lymph % (Auto) 6.9 L Kendall % (Auto) 7.4 Eos % (Auto) 0.0 L Baso % (Auto) 0.3 Neut # (Auto) 5.2 Lymph # (Auto) 0.4 L Kendall # (Auto) 0.5 Eos # (Auto) 0.0 Baso # (Auto) 0.0 Abs Immat Gran (auto) 0.02 Imm/Tot Granulo (auto) 0.3 Sodium 138 Potassium 3.9 Chloride 102 Carbon Dioxide 26.0 Anion Gap 13.9 BUN 14.0 Creatinine 1.31 H Est GFR ( Amer) >60 Est GFR (Non-Af Amer) 55 L BUN/Creatinine Ratio 10.7 Glucose 109 H Estimat Average Glucose 105 Hemoglobin A1c 5.3 Lactate Calcium 8.0 L Magnesium Total Bilirubin 0.3 AST 37 ALT 13 L Alkaline Phosphatase 95 Troponin I High Sens 56.3 65.4 Total Protein 6.5 Albumin 2.8 L Globulin 3.7 Albumin/Globulin Ratio 0.8 Triglycerides 57 Cholesterol 93 LDL Cholesterol, Calc 35.6 VLDL Cholesterol 11.4 HDL Cholesterol 46 Cholesterol/HDL Ratio 2.0 TSH 0.621 Influenza Type A Ag Positive A Influenza Type B Ag Negative SARS-CoV-2 Ag (CV2AG) Negative 10/29/24 13:15 WBC 8.2 RBC 4.33 L Hgb 14.5 Hct 44.8 MCV 103.5 H MCH 33.5 MCHC 32.4 RDW 14.6 Plt Count 168 MPV 10.1 Neut % (Auto) 87.4 H Lymph % (Auto) 4.5 L Kendall % (Auto) 7.3 Eos % (Auto) 0.2 L Baso % (Auto) 0.4 Neut # (Auto) 7.1 H Lymph # (Auto) 0.4 L Kendall # (Auto) 0.6 Eos # (Auto) 0.0 Baso # (Auto) 0.0 Abs Immat Gran (auto) 0.02 Imm/Tot Granulo (auto) 0.2 Sodium 138 Potassium 3.9 Chloride 101 Carbon Dioxide 27.4 Anion Gap 13.5 BUN 15.0 Creatinine 1.38 H Est GFR ( Amer) >60 Est GFR (Non-Af Amer) 52 L BUN/Creatinine Ratio 10.9 Glucose 95 Estimat Average Glucose Hemoglobin A1c Lactate 1.7 Calcium 8.5 Magnesium 2.2 Total Bilirubin AST ALT Alkaline Phosphatase Troponin I High Sens 60.0 Total Protein Albumin Globulin Albumin/Globulin Ratio Triglycerides Cholesterol LDL Cholesterol, Calc VLDL Cholesterol HDL Cholesterol Cholesterol/HDL Ratio TSH Influenza Type A Ag Influenza Type B Ag SARS-CoV-2 Ag (CV2AG) Discharge Plan Discharge Disposition: Home, Self-Care Condition: Good Discharge Medications: New azithromycin 250 mg tablet See Rx Instructions .ROUTE .COMPLEX Qty: 6 0RF Rx Instructions: For 250 mg dose pack: take 500 mg today (day 1), then 250 mg for 4 days (days 2-5) oseltamivir 30 mg Capsule 30 mg PO BID 4 Days Qty: 8 0RF Continued albuterol sulfate [Ventolin HFA] 90 mcg/actuation HFA aerosol inhaler 2 puff INHALATION Q6H PRN (Reason: shortness of breath or wheezing) alprazolam 0.5 mg tablet 0.5 mg PO TID PRN (Reason: anxiety) atorvastatin 40 mg tablet 40 mg PO DAILY trazodone 100 mg tablet 100 mg PO BEDTIME Trelegy Ellipta 200-62.5-25 mcg blister with device 1 inh INHALATION DAILY aspirin [Aspirin Childrens] 81 mg tablet,chewable 81 mg PO DAILY Activity: ambulate only with your walker and increase activity as tolerated Diet: advance to your usual diet Print Language: Central African Forms: Portal Instructions Follow Up Appointments: Nov.02 @ 9:30am with Dr. Navas [phone]
[2024-10-30] MEDS: BUDESONIDE 0.5 MG/2 ML AMPULE NEB IH (10:02)
[2024-10-30] MEDS: LACTATED RINGER'S SOLUTION 1,000 ML 50 ML IV (11:54)
--- NOTE | 2024-10-30 13:21 | CM.NOTE ---
Addendum entered by Hue Sorensen 10/30/24 13:26: Note time is 10:30am Original Note: Rounds made with Dr. Strickland, pt will discharge to home today. Discussed with pt HH services at discharge, pt refuses any services at discharge. Pt states my home is a mess, it is very cluttered. Explained to pt HH services come to provide care to him and not boat rigger his living situation. Talked with pt regarding importance of safety returning home, pt continues to refuse HH services. Pt states he also does his dishes in the bathtub because there is not a working sink. Pt does have heat and water but denies need for any home services at this time. SW will speak with pt about access to walker.
--- NOTE | 2024-10-30 13:22 | SWNOTE1 ---
SW stopped in to speak with pt about a walker for at home and about HH services. Pt did state he does have his mother's old walker. SW advised that we can attempt to get a new walker from his insurance. Pt is in agreement. SW and pt spoke about HH services coming in to do therapy with him. At this time pt does not want someone coming in to his home. He stated he does not feel his home is kept up enough. SW did express that home health has been in a wide variety of homes. He voiced understanding, but again stated he does not want HH. SW did confirm with pt that he does have running water and heat. SW to try to get walker for patient from [facility] since he lives in [place].
--- NOTE | 2024-10-30 13:27 | SWNOTE1 ---
After reviewing pt's chart, pt does not have a qualifying diagnosis for walker. SW to let pt know.
--- NOTE | 2024-10-30 13:35 | CM.NOTE ---
Medicare Outpatient Observation Notice discussed with pt, pt verbalizes understanding and signs paper. Original given to pt and copy placed on pt's chart.
--- NOTE | 2024-10-30 14:12 | SWNOTE1 ---
SW notified pt that SW not able to get pt walker through his insurance due to not having a qualifying diagnosis. pt voiced understanding and stated his mother's old one is in the garage and he will use that. SW also recommended checking places such as [facility]. Nurse came in room and asked if pt had a ride home and he does not. SW called [facility] and they will be here around 4-4:30. Nurse is aware of time.
--- NOTE | 2024-10-31 15:20 | CM.NOTE ---
Faxed sputum culture results to Dr. Navas's office.
--- NOTE | 2024-11-01 15:02 | CM.DCFOLLOWU ---
1st attempt 11/01/24, no answer
--- NOTE | 2024-11-05 11:53 | CM.DCFOLLOWU ---
2nd attempt 11/05/24, no answer
--- NOTE | 2024-11-06 14:11 | CM.DCFOLLOWU ---
Person spoke with:patient How are you feeling?well How is your pain?none Did you understand your discharge instructions?yes Do you have any questions about your discharge instructions?no Were you given any prescriptions at discharge? yes Were you able to get your prescriptions filled?yes Do you understand how to take your medications as ordered?yes Do you have any questions about your follow up appointment and do you plan to keep your follow up appointment? no questions, had follow up appointment Is there anything else that you would like to discuss?no Questions/Comments/Concerns/Other:no
== END 2024-10-30 16:13 | disposition home or self-care (01) ==
LOC: ER 14:46 → MS 10-30 06:00
PROVIDERS: Admitting Provider Family Medicine; Emergency Provider Emergency Medicine; PCP Family Medicine; Visit Provider Family Medicine
DX: J10.00 Influenza due to other identified influenza virus with unspecified type of pneumonia (principal); R07.9 Chest pain, unspecified; R42 Dizziness and giddiness; R50.9 Fever, unspecified; J44.0 Chronic obstructive pulmonary disease with (acute) lower respiratory infection; E78.5 Hyperlipidemia, unspecified; G47.00 Insomnia, unspecified; Z91.81 History of falling; F41.1 Generalized anxiety disorder; J44.1 Chronic obstructive pulmonary disease with (acute) exacerbation; F17.210 Nicotine dependence, cigarettes, uncomplicated; Z79.899 Other long term (current) drug therapy
CPT/HCPCS: 36415; 70450; 71045; 72125; 80048; 80053; 80061; 83036; 83605; 83735; 84443; 84484; 85025; 87040; 87070; 87106; 87205; 87804; 87811; 93005; 94640; 94667; 94668; 94761; 96365; 96367; 96372; 97162; 99285; 99406; G0378; J0456; J0696; J1644

== ENCOUNTER 2024-12-12 12:55 | Inpatient (IN) | payer OTHER, SELFPAY ==
[2024-12-12] VITALS (8 sets, daily range): BP systolic 105–157; BP diastolic 66–87; PULSE 62–97; TEMP 36.4–36.6; O2SAT 95–97; BMI 20.2; BMI 19.1
--- NOTE | 2024-12-12 13:08 | ED_ITS ---
HPI HPI - General Adult General Chief complaint: Abdominal Pain Stated complaint: ABDOMINAL PAIN, WEAKNESS, VOMITNG Time Seen by Provider: 12/12/24 13:06 Mode of arrival: walk-in History of Present Illness HPI narrative: 64 year old male presents to the ED for low abd pain, N/V. Onset was 3 days ago. Reports generalized weakness. States his chronic cough and SOB have been worse. He has hx COPD. Denies fever, chills, edema, diarrhea. Reports increased sputum production. Related Data Home Medications ?Medication ?Instructions ?Recorded ?Confirmed albuterol sulfate 90 mcg/actuation 2 puff inhalation Q4H PRN 10/29/24 12/12/24 aerosol inhaler (Ventolin HFA) shortness of breath or wheezing alprazolam 0.5 mg tablet 0.5 mg PO TID PRN anxiety 10/29/24 12/12/24 aspirin 81 mg chewable tablet 81 mg PO DAILY 10/29/24 12/12/24 (Aspirin Childrens) atorvastatin 40 mg tablet 40 mg PO DAILY 10/29/24 12/12/24 fluticasone fur. 200 mcg-umeclid 1 inh inhalation DAILY 10/29/24 12/12/24 62.5 mcg-vilant 25 mcg inhalat.powder (Trelegy Ellipta) trazodone 100 mg tablet 100 mg PO BEDTIME 10/29/24 12/12/24 doxycycline hyclate 100 mg tablet 100 mg PO BID 12/12/24 12/12/24 Allergies Allergy/AdvReac Type Severity Reaction Status Date / Time No Known Drug Allergies Allergy Verified 10/29/24 12:52 Opioid HPI Opioid Management Most Recent Opioid Data: Last Pain Scale 0 10/30/24 11:46 10/30/24 Last ORT Total Score 0 10/29/24 15:44 10/29/24 Last ORT Risk Category Low Risk 10/29/24 15:44 10/29/24 Review of Systems ROS Constitutional Denies: fever or chills Ears, nose, mouth, and throat Denies: throat pain or neck pain Cardiovascular Denies: chest pain Respiratory Reports: shortness of breath and cough Gastrointestinal Reports: abdominal pain, nausea and vomiting; Denies: diarrhea Genitourinary Denies: painful urination, urinary frequency, urinary urgency or blood in urine Musculoskeletal Denies: back pain or neck pain Integumentary/Breast Denies: rash Neurological Reports: weakness in extremities; Denies: headache, numbness in extremities or dizziness [facility] Medical History (Updated 12/12/24 @ 15:50 by Roslyn Suresh) Emphysema lung ?J43.9 - Emphysema, unspecified (ICD-10) COPD (chronic obstructive pulmonary disease) ?J44.9 - Chronic obstructive pulmonary disease, unspecified (ICD-10) Smoker ?F17.200 - Nicotine dependence, unspecified, uncomplicated (ICD-10) Generalized anxiety disorder ?F41.1 - Generalized anxiety disorder (ICD-10) Insomnia disorder ?G47.00 - Insomnia, unspecified (ICD-10) Hyperlipidemia ?E78.5 - Hyperlipidemia, unspecified (ICD-10) Social History Highest level of school completed/degree received: 11th grade Little interest or pleasure in doing things: not at all Feeling down, depressed, or hopeless: not at all Exam Constitutional Vital Signs, click to edit/add: Last Vital Signs Temp 97.8 F 12/12/24 12:58 Pulse 78 12/12/24 15:27 Resp 20 12/12/24 15:27 BP 133/81 12/12/24 15:27 Pulse Ox 97 12/12/24 15:27 O2 Del Method Room Air 12/12/24 15:27 Common normals: no apparent distress and oriented x3 General appearance: cooperative HENMT Common normals: external ears normal and moist oral mucous membranes Eye Common normals: PERRL, conjunctivae normal and no scleral icterus Neck & C-Spine Common normals: supple Chest Chest: symmetrical chest wall rise Respiratory Common normals: normal respiratory effort Effort & inspection: able to speak in complete sentences and symmetric chest movement Auscultation: diminished lung sounds GI Common normals: Normal to inspection, nondistended, normoactive bowel sounds present Palpation: tender Details: LLQ and RLQ Neuro Common normals: oriented x3 and moves all extremities Sensorium/orientation: awake and alert Speech: speech normal Course Vital Signs Vital signs: Vital Signs Temperature 97.8 F 12/12/24 12:58 Pulse Rate 91 H 12/12/24 12:58 Respiratory Rate 18 12/12/24 12:58 Blood Pressure 105/66 12/12/24 12:58 Pulse Oximetry 97 12/12/24 12:58 Oxygen Delivery Method Room Air 12/12/24 12:58 Temperature 97.8 F 12/12/24 12:58 Pulse Rate 78 12/12/24 15:27 Respiratory Rate 20 12/12/24 15:27 Blood Pressure 133/81 12/12/24 15:27 Pulse Oximetry 97 12/12/24 15:27 Oxygen Delivery Method Room Air 12/12/24 15:27 Medical Decision Making MDM Narrative Medical decision making narrative: The patient declined influenza and Covid-19 testing due to it being a nasal swab. WBC count was 26. BNP was 4805. BUN 17, creatinine 1.40. Chest x-ray showed pneumonia vs mass. CT scan showed thickening of the wall of sigmoid colon. CT scan of the chest was added. The patient was updated and findings were discussed. The patient was started on IV antibiotics after blood cultures were drawn. The patient will be admitted for further evaluation and treatment. I spoke with Dr. Strickland who accepted the patient for admission. A completed and detailed handoff report was given. Differential Diagnosis Differential Diagnosis: COPD exacerbation, pneumonia, colitis, diverticulitis, bowel obstruction Medical Records Medical records reviewed: Yes I reviewed the patient's medical records Lab Data Lab results reviewed: Yes I reviewed the patient's lab results Labs: Lab Results 12/12/24 12/12/24 12/12/24 Range/Units 13:16 13:30 15:30 WBC 26.0 H (4.0-11.0) 10^3/uL RBC 4.47 L (4.70-6.10) 10^6/uL Hgb 15.2 (14.0-18.0) g/dL Hct 44.8 (42.0-54.0) % MCV 100.2 H (80.0-94.0) fL MCH 34.0 (25.9-34.0) pg MCHC 33.9 (29.9-35.2) g/dL RDW 14.6 (11.0-15.0) % Plt Count 213 (150-450) 10^3/uL MPV 10.3 (9.5-13.5) fL Seg Neuts % (Manual) 90.0 H (43.0-75.0) Band Neutrophils % 2.0 (0-5) % Lymphocytes % (Manual) 4.0 L (20.5-60.0) % Monocytes % (Manual) 4.0 (1.7-12.0) % Eosinophils % (Manual) 0.0 L (0.9-7.0) % Basophils % (Manual) 0.0 L (0.2-2.0) % Neutrophils # (Manual) 23.40 H (1.4-6.5) 10^3/uL Band Neutrophils # 0.5 H (0.0-0.3) 10^3/uL Lymphocytes # (Manual) 1.04 L (1.20-3.80) 10^3/uL Monocytes # (Manual) 1.04 H (0.30-0.80) 10^3/uL Eosinophils # (Manual) 0.00 (0.00-0.70) 10^3/uL Basophils # (Manual) 0.00 (0.00-0.10) 10^3/uL Anisocytosis 1+ Sodium 137 (136-145) mmol/L Potassium 4.0 (3.5-5.1) mmol/L Chloride 100 (98-107) mmol/L Carbon Dioxide 26.9 (21.0-32.0) mmol/L Anion Gap 14.1 BUN 17.0 (7.0-18.0) mg/dL Creatinine 1.40 H (0.70-1.30) mg/dL Est GFR ( Amer) >60 (>=60 mL/min/1.73m^2) Est GFR (Non-Af Amer) 51 L (>=60 mL/min/1.73m^2) BUN/Creatinine Ratio 12.1 Glucose 105 (74-106) mg/dL Lactate 1.4 (0.4-2.0) mmol/L Calcium 9.0 (8.5-10.1) mg/dL Total Bilirubin 0.8 (0.2-1.0) mg/dL AST 14 L (15-37) U/L ALT 17 (16-63) U/L Alkaline Phosphatase 172 H (46-116) U/L NT-Pro-B Natriuret Pep 4805.0 H* (<=900.0) pg/mL Total Protein 7.9 (6.4-8.2) g/dL Albumin 3.1 L (3.4-5.0) g/dL Globulin 4.8 g/dL Albumin/Globulin Ratio 0.6 Lipase 14.0 L (16.0-77.0) U/L Urine Color Dk. orange (YELLOW) Urine Clarity Clear (CLEAR) Urine pH 5.5 (5.0-9.0) Ur Specific [place] >=1.030 A (1.005-1.025) Urine Protein 100 A (NEG/TRACE) mg/dL Urine Glucose (UA) Negative (NEGATIVE) mg/dL Urine Ketones Trace A (NEGATIVE) mg/dL Urine Occult Blood Moderate A (NEGATIVE) Urine Nitrite Negative (NEGATIVE) Urine Bilirubin Small A (NEGATIVE) Urine Urobilinogen 1.0 (0.2-1.0) EU/dL Ur Leukocyte Esterase Negative (NEGATIVE) Urine RBC 2-5 A (0-2) #/HPF Urine WBC 2-5 A (NONE SEEN) #/HPF Ur Squamous Epith Cells Rare (NONE/RARE) #/LPF Urine Crystals None seen (None Seen) #/HPF Urine Bacteria Trace A (NONE SEEN) #/HPF Urine Casts Seen A (NONE SEEN) #/LPF Hyaline Casts Many Urine Mucus Large A (NONE SEEN) Urine Sperm Seen Imaging Data Chest x-ray: Attestation: I have reviewed the pertinent imaging results. Radiologist's impression: Chest x-ray: Irregular 2.3 cm opacity right upper lobe. Mass versus pneumonia. CT abdomen and pelvis with IV contrast: Thickening of the wall of sigmoid colon. Cannot exclude colitis. Focal edema noted anterior to the aorta of uncertain etiology or significance. CT chest w/o: Irregular opacity noted in the apical segment of the right lower lobe. This could be related to pneumonia. This requires short-term follow-up. Discharge Plan Discharge Chief Complaint: Abdominal Pain Clinical Impression: Abdominal pain, Colitis, Abnormal chest CT Pneumonia Qualifiers: Pneumonia type: due to unspecified organism Laterality: right Lung location: middle lobe of lung Qualified Code(s): J18.9 - Pneumonia, unspecified organism Patient Disposition: Admitted As Inpatient Time of Disposition Decision: 15:56 Condition: Good
[2024-12-12] MEDS: ALBUTEROL SULFATE 2.5 MG/3 ML VIAL NEB IH (13:22)
[2024-12-12 13:23] LABS: Hematocrit 44.8 % (42.0-54.0); Hemoglobin 15.2 g/dL (14.0-18.0); Mean Corpuscular HGB Conc 33.9 g/dL (29.9-35.2); Mean Corpuscular Volume 100.2 fL (80.0-94.0); Mean Platelet Volume 10.3 fL (9.5-13.5); Platelet Count 213 10^3/uL (150-450); Red Blood Count 4.47 10^6/uL (4.70-6.10); Red Cell Distribution Width 14.6 % (11.0-15.0)
--- NOTE | 2024-12-12 13:24 | PC.NURSE ---
Patient refuses flu and covid testing, SIGNALS ANALYST notified.
[2024-12-12] MEDS: 0.9 % SODIUM CHLORIDE 1,000 ML 100 ML IV (13:33)
[2024-12-12] MEDS: METHYLPREDNISOLONE SOD SUCC PF 125 MG/2 ML VIAL IVP (13:34)
[2024-12-12] MEDS: ONDANSETRON PF 4 MG/2 ML VIAL IV (13:34)
[2024-12-12 13:41] LABS: Alanine Aminotransferase 17 U/L (16-63); Albumin Globulin Ratio 0.6; Albumin Level 3.1 g/dL (3.4-5.0); Alkaline Phosphatase 172 U/L (46-116); Anion Gap 14.1; Aspartate Amino Transferase 14 U/L (15-37); BUN Creatinine Ratio 12.1; Bilirubin Total 0.8 mg/dL (0.2-1.0); Carbon Dioxide 26.9 mmol/L (21.0-32.0); Chloride 100 mmol/L (98-107); Estimated GFR (African America >60 (>=60 mL/min/1.73m^2); Estimated GFR (Non-African Ame 51 (>=60 mL/min/1.73m^2); Globulin 4.8 g/dL; Glucose 105 mg/dL (74-106); Sodium 137 mmol/L (136-145); Total Protein 7.9 g/dL (6.4-8.2)
[2024-12-12 13:47] LABS: Anisocytosis 1+; Band Neutrophils Absolute 0.5 10^3/uL (0.0-0.3); Lymphocytes Absolute Manual 1.04 10^3/uL (1.20-3.80); Monocytes Absolute Manual 1.04 10^3/uL (0.30-0.80)
[2024-12-12 14:01] LABS: Bilirubin Urine SMALL (NEGATIVE); Blood Urine MODERATE (NEGATIVE); Clarity Urine CLEAR (CLEAR); Color Urine DK. ORANGE (YELLOW); Glucose Urine UA NEGATIVE (NEGATIVE); Ketones Urine TRACE mg/dL (NEGATIVE); Leukocyte Esterase Urine NEGATIVE (NEGATIVE); Nitrite Urine NEGATIVE (NEGATIVE); Protein Urine 100 mg/dL (NEG/TRACE); Specific Gravity Urine >=1.030 (1.005-1.025); pH Urine 5.5 (5.0-9.0)
[2024-12-12 14:09] LABS: Mucus Urine LARGE (NONE SEEN)
[2024-12-12 14:10] LABS: Bacteria Urine TRACE #/HPF (NONE SEEN); Cast Seen? SEEN #/LPF (NONE SEEN); Crystals Seen? None Seen #/HPF (None Seen); Hyaline Casts Urine MANY; Sperm Urine SEEN; Squamous Epithelial Cell Urine RARE #/LPF (NONE/RARE)
[2024-12-12] MEDS: METRONIDAZOLE/SODIUM CHLORIDE 500 MG/100 ML PREMIX 100 MG IV ×2 (15:43→22:31)
[2024-12-12 16:05] LABS: Lactate/Lactic Acid 1.4 mmol/L (0.4-2.0)
--- NOTE | 2024-12-12 16:22 | P.HP_ITS ---
HPI H&P: HPI History of Present Illness Chief complaint: ABDOMINAL PAIN, WEAKNESS, COLITUS, PNEUMONIAVSMASS Narrative: Patient is a 64 y.o White male with past medical history of COPD, current smoker, HLD, insomnia, and anxiety who presented to the ER today with abdominal pain, nausea with Vomiting for 3 days. Patient also reports increased cough and shortness of breath. He has had fevers and chills, denies chest pain. No diarrhea or sick contacts. ER findings: WBC's 26, Hb 15.2, Cr 1.4, BUN 17, ProBNP 4805, Lipase-18, lactate 1.4, UA positive, patient is 97 % on Room air; Chest CT: Irregular opacity in the apical segment of the RLL may represent pneumonia, CT ab/pelvis showed thickening of the urinary bladder, and sigmoid colon representing colitis. Opioid HPI Opioid Management Most Recent Pain and Opioid Data: Last Pain Scale 0 10/30/24 11:46 10/30/24 Last ORT Total Score 0 10/29/24 15:44 10/29/24 Last ORT Risk Category Low Risk 10/29/24 15:44 10/29/24 Review of Systems ROS Narrative ROS: a complete review of systems were reviewed with patient and are positive as below or listed in History of Chief Complaint. General: fever, chills, night sweats Head: no headache, trauma, visual changes, nausea or vomiting Skin: no reported rashes, itching or sores Eyes: no blurriness of vision Ears: no reported hearing loss, vertigo, earache, or tinnitus Throat: no sore throat, hoarseness, swelling of neck, or tongue pain Heart: no chest pain Lungs:shortness of breath and cough GI: no diarrhea but vomiting/nausea, and diffuse abdominal pain Urinary: no urinary urgency, frequency or pain Neuro: no numbness or tingling HEM: no bleeding issues or bruising ENDO: no thyroid problems Psych: anxiety [facility] Medical History (Updated 12/12/24 @ 16:33 by Casi Strickland DO) Emphysema lung ?J43.9 - Emphysema, unspecified (ICD-10) COPD (chronic obstructive pulmonary disease) ?J44.9 - Chronic obstructive pulmonary disease, unspecified (ICD-10) Smoker ?F17.200 - Nicotine dependence, unspecified, uncomplicated (ICD-10) Generalized anxiety disorder ?F41.1 - Generalized anxiety disorder (ICD-10) Insomnia disorder ?G47.00 - Insomnia, unspecified (ICD-10) Hyperlipidemia ?E78.5 - Hyperlipidemia, unspecified (ICD-10) Social History Highest level of school completed/degree received: 11th grade Little interest or pleasure in doing things: not at all Feeling down, depressed, or hopeless: not at all Meds Home Medications and Allergies Home Medications ?Medication ?Instructions ?Recorded ?Confirmed ?Type albuterol sulfate 90 mcg/actuation 2 puff inhalation Q4H PRN 10/29/24 12/12/24 History aerosol inhaler (Ventolin HFA) shortness of breath or wheezing alprazolam 0.5 mg tablet 0.5 mg PO TID PRN anxiety 10/29/24 12/12/24 History aspirin 81 mg chewable tablet 81 mg PO DAILY 10/29/24 12/12/24 History (Aspirin Childrens) atorvastatin 40 mg tablet 40 mg PO DAILY 10/29/24 12/12/24 History fluticasone fur. 200 mcg-umeclid 1 inh inhalation DAILY 10/29/24 12/12/24 History 62.5 mcg-vilant 25 mcg inhalat.powder (Trelegy Ellipta) trazodone 100 mg tablet 100 mg PO BEDTIME 10/29/24 12/12/24 History doxycycline hyclate 100 mg tablet 100 mg PO BID 12/12/24 12/12/24 History Allergies Allergy/AdvReac Type Severity Reaction Status Date / Time No Known Drug Allergies Allergy Verified 10/29/24 12:52 Exam Narrative Exam Narrative: General: Patient is alert, and oriented to person, place and time with normal affect, proper hygiene Skin: no visible rashes, or ulcers Head: atraumatic, acephalic Eyes: PERRLA, no nystagmus present, conjunctiva clear, no scleral icterus Ears: normal gross auditory acuity Mouth/Throat: dentures Neck: no masses palpated, normal thyroid Heart: Normal rate and rhythm, no murmurs/rubs/gallops Lungs: audible wheezes, lower base crackles Abdomen: diminished bowel sounds, no distension, rebound/guarding of the LLQ and RLQ Musculoskeletal: muscle atrophy noted, ROM is limited due to being in hospital bed, no swelling bilateral lower extremities Neuro: CN II-X grossly intact Constitutional Vital Signs, click to edit/add: Last Vital Signs Temp 97.8 F 12/12/24 12:58 Pulse 78 12/12/24 15:27 Resp 20 12/12/24 15:27 BP 133/81 12/12/24 15:27 Pulse Ox 97 12/12/24 15:27 O2 Del Method Room Air 12/12/24 15:27 Results Labs Labs: Short CBC 12/12/24 Range/Units 13:16 WBC 26.0 H (4.0-11.0) 10^3/uL Hgb 15.2 (14.0-18.0) g/dL Hct 44.8 (42.0-54.0) % Plt Count 213 (150-450) 10^3/uL BMP 12/12/24 13:16 Sodium 137 Potassium 4.0 Chloride 100 Carbon Dioxide 26.9 BUN 17.0 Creatinine 1.40 H Glucose 105 Calcium 9.0 Liver Function 12/12/24 Range/Units 13:16 Total Bilirubin 0.8 (0.2-1.0) mg/dL AST 14 L (15-37) U/L ALT 17 (16-63) U/L Alkaline Phosphatase 172 H (46-116) U/L Albumin 3.1 L (3.4-5.0) g/dL Urine 12/12/24 Range/Units 13:30 Urine Color Dk. orange (YELLOW) Urine Clarity Clear (CLEAR) Urine pH 5.5 (5.0-9.0) Ur Specific [place] >=1.030 A (1.005-1.025) Urine Protein 100 A (NEG/TRACE) mg/dL Urine Glucose (UA) Negative (NEGATIVE) mg/dL Assessment and Plan Assessment and Plan (1) Acute colitis: Assessment and Plan: thickened Sigmoid colon on CT; Lactate normal, continue to trend; Placed on Levaquin and Flagyl. Stool cultures/C diff if possible. Monitor for signs of blood, elevated lactate and possible ischemic colitis. Treat nausea/vomiting symptoms with zofran. Elevated WBC's 26 (2) Acute cystitis with hematuria: Assessment and Plan: Thickening of bladder on CT with positive UA, Send for culture, Treat with Levaquin. (3) RLL pneumonia: Assessment and Plan: I was comparing today's Chest CT to low dose CT on 02/16/24 and chest X-ray on 10/2024, It appears this density has been on the right since january 2024 but they called it a soft tissue nodule in posterior right pleura, and today they read it as opacity, possible pneumonia. Will treat like pneumonia given cough, sob and leukocytosis. Continue Levaquin. Qualifiers: Pneumonia type: due to unspecified organism Qualified Code(s): J18.9 - Pneumonia, unspecified organism (4) Acute congestive heart failure: Assessment and Plan: Elevated ProBNP 4805. I see no prior history of CHF, does have a history of STEMI. Will check ECHO when available, fluid restriction 1.5 L, monitor in & outs. daily weights, hold IVF. Check Troponin, patient on telemetry Qualifiers: Heart failure type: unspecified Qualified Code(s): I50.9 - Heart failure, unspecified (5) Generalized anxiety disorder: Assessment and Plan: continue xanax as needed (6) Insomnia disorder: Assessment and Plan: continue trazodone Qualifiers: Insomnia type: primary Qualified Code(s): F51.01 - Primary insomnia (7) Hyperlipidemia: Assessment and Plan: continue lipitor Qualifiers: Hyperlipidemia type: unspecified Qualified Code(s): E78.5 - Hyperlipidemia, unspecified (8) Smoker: Assessment and Plan: offer Nicoderm patch (9) COPD (chronic obstructive pulmonary disease): Assessment and Plan: Treat underlying pneumonia, start duonebs, pulmicort and OPEP. Qualifiers: COPD type: emphysema Emphysema type: panlobular Qualified Code(s): J43.1 - Panlobular emphysema Plan Patient is a full code continue Lovenox for DVT prophylaxis Patient is inpatient status and is expected to cross 2 midnights
[2024-12-12] MEDS: LEVOFLOXACIN IN DEXTROSE 5 % 750 MG/150 ML PREMIX 100 MG IV (16:44)
[2024-12-12 16:57] LABS: Troponin I High Sensitivity 25.2 pg/mL (4.0-76.1)
[2024-12-12] MEDS: FENTANYL CITRATE/PF 100 MCG/2 ML VIAL 50 MCG IV (20:29)
[2024-12-12] MEDS: SENNOSIDES/DOCUSATE SODIUM 1 TAB TABLET PO (20:29)
[2024-12-12] MEDS: POLYETHYLENE GLYCOL 3350 17 GM POWDER PACKET PO (20:29)
[2024-12-12] MEDS: DICYCLOMINE HCL 10 MG CAPSULE 20 MG PO (20:29)
[2024-12-12] MEDS: METHYLPREDNISOLONE SOD SUCC PF 40 MG/ML VIAL IVP (20:40)
[2024-12-12] MEDS: IPRATROPIUM/ALBUTEROL SULFATE 3 ML AMPUL.NEB IH (22:22)
[2024-12-12] MEDS: BUDESONIDE 0.5 MG/2 ML AMPULE NEB IH (22:22)
[2024-12-12] MEDS: ALPRAZOLAM 0.5 MG TABLET PO (22:32)
[2024-12-12] MEDS: TRAZODONE HCL 50 MG TABLET 100 MG PO (22:32)
[2024-12-13] VITALS (14 sets, daily range): BP systolic 110–149; BP diastolic 70–86; PULSE 73–95; TEMP 36.5–36.8; O2SAT 2–99
[2024-12-13] MEDS: FENTANYL CITRATE/PF 100 MCG/2 ML VIAL 50 MCG IV ×4 (02:11→13:16)
[2024-12-13] MEDS: ONDANSETRON PF 4 MG/2 ML VIAL IV (02:19)
[2024-12-13] MEDS: METHYLPREDNISOLONE SOD SUCC PF 40 MG/ML VIAL IVP (06:03)
[2024-12-13] MEDS: METRONIDAZOLE/SODIUM CHLORIDE 500 MG/100 ML PREMIX 100 MG IV (06:04)
[2024-12-13 06:21] LABS: Basophils Percent Auto 0.1 % (0.2-2.0); Eosinophils Percent Auto 0.1 % (0.9-7.0); Hemoglobin 16.3 g/dL (14.0-18.0); Immature Granulocytes Abs Auto 0.19 10^3/uL (0.00-0.03); Immature Granulocytes Pct Auto 0.8 % (0.0-0.5); Lymphocytes Absolute Auto 0.8 10^3/uL (1.2-3.8); Lymphocytes Percent Auto 3.1 % (20.5-60.0); Mean Corpuscular HGB Conc 32.6 g/dL (29.9-35.2); Mean Corpuscular Hemoglobin 33.7 pg (25.9-34.0); Mean Corpuscular Volume 103.5 fL (80.0-94.0); Mean Platelet Volume 10.6 fL (9.5-13.5); Monocytes Absolute Auto 0.7 10^3/uL (0.3-0.8); Monocytes Percent Auto 2.9 % (1.7-12.0); Neutrophils Absolute Auto 22.9 10^3/uL (1.4-6.5); Platelet Count 244 10^3/uL (150-450); Red Blood Count 4.83 10^6/uL (4.70-6.10); Red Cell Distribution Width 14.8 % (11.0-15.0); White Blood Count 24.6 10^3/uL (4.0-11.0)
[2024-12-13 06:48] LABS: Alanine Aminotransferase 11 U/L (16-63); Albumin Globulin Ratio 0.6; Albumin Level 3.1 g/dL (3.4-5.0); Alkaline Phosphatase 182 U/L (46-116); Anion Gap 17.6; Aspartate Amino Transferase 11 U/L (15-37); BUN Creatinine Ratio 14.6; Bilirubin Total 0.5 mg/dL (0.2-1.0); Calcium 9.5 mg/dL (8.5-10.1); Carbon Dioxide 25.9 mmol/L (21.0-32.0); Chloride 99 mmol/L (98-107); Estimated GFR (African America 56 (>=60 mL/min/1.73m^2); Estimated GFR (Non-African Ame 46 (>=60 mL/min/1.73m^2); Globulin 5.5 g/dL; Glucose 123 mg/dL (74-106); Potassium 3.5 mmol/L (3.5-5.1); Sodium 139 mmol/L (136-145); Total Protein 8.6 g/dL (6.4-8.2)
[2024-12-13] MEDS: 0.9 % SODIUM CHLORIDE 500 ML IV (07:08)
--- NOTE | 2024-12-13 07:46 | P.PN_ITS ---
Progress Note: Subjective Subjective Interval history: Patient with elevated lactate this morning 6.0 with increased abdominal pain overnight. Afebrile but no flatulence. He required IV Fentynl for pain control last night. No vomiting, still no appetite. I got a stat abdominal X-ray which shows partial small bowel obstruction which is new finding from CT abd/pelvis yesterday. Patient was placed NPO, Given Bolus of Normal Saline and started on a rate of LR @125. Will recheck lactate this morning. I have also broad spectrum antibiotics of Zosyn and Vanc added since WBC's still up to 24.6. I have discussed with patient that he needs a General Surgery Consult and we do not have GS at [facility] so he will have to be transferred for this. He prefers to go to [facility], so transfer was initiated at 8am this morning. He has been accepted at [facility], awaiting bed assignment. BP stable at 131/81, patient with pallor this morning and abdominal guarding, distention on exam. Patient's oxygen saturation dropped to 87% last night and had to be placed on 2 L via NC. Exam Narrative Exam Narrative: General: Patient is alert, and oriented to person, place and time with guarding his abdomen, cachexia Skin: pallor Head: atraumatic, acephalic Eyes: PERRLA, no nystagmus present, conjunctiva clear, no scleral icterus Ears: normal gross auditory acuity Mouth/Throat: dentures Neck: no masses palpated, normal thyroid Heart: Normal rate and rhythm, no murmurs/rubs/gallops Lungs: audible wheezes, lower base crackles Abdomen: hyperactive bowel sounds, distension, rebound/guarding of the LLQ and RLQ Musculoskeletal: muscle atrophy noted, ROM is limited due to being in hospital bed, no swelling bilateral lower extremities Neuro: CN II-X grossly intact Constitutional Vital Signs, click to edit/add: Last Vital Signs Temp 98.0 F 12/13/24 07:28 Pulse 84 12/13/24 07:28 Resp 22 H 12/13/24 07:28 BP 131/81 12/13/24 07:28 Pulse Ox 94 L 12/13/24 07:28 O2 Del Method Nasal Cannula 12/13/24 07:28 O2 Flow Rate 2 12/13/24 07:28 Progress Note: Objective Labs Labs: Short CBC 12/12/24 12/13/24 Range/Units 13:16 06:05 WBC 26.0 H 24.6 H (4.0-11.0) 10^3/uL Hgb 15.2 16.3 (14.0-18.0) g/dL Hct 44.8 50.0 (42.0-54.0) % Plt Count 213 244 (150-450) 10^3/uL BMP 12/12/24 12/13/24 13:16 06:05 Sodium 137 139 Potassium 4.0 3.5 Chloride 100 99 Carbon Dioxide 26.9 25.9 BUN 17.0 22.0 H Creatinine 1.40 H 1.51 H Glucose 105 123 H Calcium 9.0 9.5 Liver Function 12/12/24 12/13/24 Range/Units 13:16 06:05 Total Bilirubin 0.8 0.5 (0.2-1.0) mg/dL AST 14 L 11 L (15-37) U/L ALT 17 11 L (16-63) U/L Alkaline Phosphatase 172 H 182 H (46-116) U/L Albumin 3.1 L 3.1 L (3.4-5.0) g/dL Urine 12/12/24 Range/Units 13:30 Urine Color Dk. orange (YELLOW) Urine Clarity Clear (CLEAR) Urine pH 5.5 (5.0-9.0) Ur Specific [place] >=1.030 A (1.005-1.025) Urine Protein 100 A (NEG/TRACE) mg/dL Urine Glucose (UA) Negative (NEGATIVE) mg/dL Progress Note: A&P Assessment and Plan (1) Severe sepsis with acute organ dysfunction: Assessment and Plan: Elevated Lactate, skin pallor, hypoxia and worsening abdominal pain with new findings of SBO. Stopped Levaquin and Flagyl. Started Zosyn and Vanc. Given fluid bolus and started on rate. Transfer patient for General surgery evaluation. Vitals are stable currently. (2) Acute renal failure: Assessment and Plan: Cr was 1.51, this is up from baseline of 1.0; can be from sepsis, or UTI Qualifiers: Acute renal failure type: unspecified Qualified Code(s): N17.9 - Acute kidney failure, unspecified (3) Partial small bowel obstruction: Assessment and Plan: patient made NPO, transfer for General Surgery evaluation (4) Acute colitis: Assessment and Plan: was being treated with levaquin and Flagyl, given WBC's 24 and lactate increase from 1.4 to 6.0, concern for possible ischemic colitis, and with new SBO. (5) Acute cystitis with hematuria: Assessment and Plan: continue vanc and zosyn (6) RLL pneumonia: Assessment and Plan: continue vanc and zosyn Qualifiers: Pneumonia type: due to unspecified organism Qualified Code(s): J18.9 - Pneumonia, unspecified organism (7) Acute congestive heart failure: Assessment and Plan: elevated ProBNP, was going to get ECHO but due to patient transfer will have them do at their facility. Appears more hypovolemic now. Qualifiers: Heart failure type: unspecified Qualified Code(s): I50.9 - Heart failure, unspecified (8) Generalized anxiety disorder: Assessment and Plan: continue xanax as needed (9) Insomnia disorder: Assessment and Plan: continue trazodone Qualifiers: Insomnia type: primary Qualified Code(s): F51.01 - Primary insomnia (10) Hyperlipidemia: Assessment and Plan: continue lipitor Qualifiers: Hyperlipidemia type: unspecified Qualified Code(s): E78.5 - Hyperlipidemia, unspecified (11) Smoker: (12) COPD (chronic obstructive pulmonary disease): Assessment and Plan: Treat underlying pneumonia, start duonebs, pulmicort and OPEP. Qualifiers: COPD type: emphysema Emphysema type: panlobular Qualified Code(s): J43.1 - Panlobular emphysema (13) Moderate malnutrition: Assessment and Plan: would recommend dietary consult once SBO resolved. Plan Patient is a full code continue Lovenox for DVT prophylaxis Patient with decompensation this morning with worsening exam and labs. Patient needs Urgent General Surgery Consultation that we cannot provide him at [facility]. Will be transferred to [facility] in [place] when bed is available.
[2024-12-13] MEDS: LACTATED RINGER'S SOLUTION 1,000 ML 125 ML IV (09:18)
[2024-12-13 09:30] LABS: Lactate/Lactic Acid 2.9 mmol/L (0.4-2.0)
[2024-12-13] MEDS: VANCOMYCIN HCL 1,250 MG in 0.9 % SODIUM CHLORIDE 250 ML 166.667 MG IV (09:54)
--- NOTE | 2024-12-13 10:11 | SWNOTE1 ---
Important Message from [employer] reviewed and discussed with patient. Pt. verbalized understanding and signed the form. Original given to patient and copy placed in patient?s chart.
--- NOTE | 2024-12-13 10:11 | SWNOTE1 ---
Plan is for pt to be transferred to higher level of care once bed available.
[2024-12-13] MEDS: BUDESONIDE 0.5 MG/2 ML AMPULE NEB IH (10:57)
[2024-12-13] MEDS: IPRATROPIUM/ALBUTEROL SULFATE 3 ML AMPUL.NEB IH (11:30)
[2024-12-13] MEDS: PIPERACILLIN SODIUM/TAZOBACTAM 3.375 GM in 0.9 % SODIUM CHLORIDE 50 ML IV (11:37)
--- NOTE | 2024-12-13 13:08 | P.DS_ITS ---
DS: Providers Provider Date of admission: 12/12/24 17:01 Primary care physician: JULIETTE MILNER Attending physician on admission: Casi Strickland Consults: 12/12/24 Consult to Dietitian Routine Reason for consultation: weight loss Has provider been notified: Yes 12/12/24 16:14 Occupational Therapy Eval and Treat Routine Reason for consultation: weakness, shortness of breath Has provider been notified: No Physical Therapy Eval and Treat Routine Reason for consultation: weakness, shortness of breath Has provider been notified: No Discharging clinician: Casi Strickland DS: Diagnosis Discharge Diagnosis (1) Severe sepsis with acute organ dysfunction: (2) Acute renal failure: Qualifiers: Acute renal failure type: unspecified Qualified Code(s): N17.9 - Acute kidney failure, unspecified (3) Partial small bowel obstruction: (4) Acute colitis: (5) Acute cystitis with hematuria: (6) RLL pneumonia: Qualifiers: Pneumonia type: due to unspecified organism Qualified Code(s): J18.9 - Pneumonia, unspecified organism (7) Acute congestive heart failure: Qualifiers: Heart failure type: unspecified Qualified Code(s): I50.9 - Heart fa ilure, unspecified (8) Generalized anxiety disorder: (9) Insomnia disorder: Qualifiers: Insomnia type: primary Qualified Code(s): F51.01 - Primary insomnia (10) Hyperlipidemia: Qualifiers: Hyperlipidemia type: unspecified Qualified Code(s): E78.5 - Hyperlipidemia, unspecified (11) Smoker: (12) COPD (chronic obstructive pulmonary disease): Qualifiers: COPD type: emphysema Emphysema type: panlobular Qualified Code(s): J43.1 - Panlobular emphysema (13) Moderate malnutrition: DS: Summary Hospital Course Hospital Course: Please see progress note dated 12/13/24 Time Spent with Patient Time attestation: Total time spent providing and/or coordinating discharge services: Exam Narrative Exam Narrative: No change in disharge exam from progress note dated 12/13/24 Constitutional Vital Signs, click to edit/add: Last Vital Signs Temp 98.0 F 12/13/24 07:28 Pulse 76 12/13/24 12:10 Resp 18 12/13/24 12:10 BP 120/70 12/13/24 12:10 Pulse Ox 93 L 03/20/25 12:10 O2 Del Method Nasal Cannula 12/13/24 12:10 O2 Flow Rate 2 12/13/24 12:10 DS: Data Data Completed and Pending Labs on day of discharge: Labs from last 24 hours 12/13/24 12/13/24 12/12/24 09:03 06:05 15:30 WBC 24.6 H RBC 4.83 Hgb 16.3 Hct 50.0 MCV 103.5 H MCH 33.7 MCHC 32.6 RDW 14.8 Plt Count 244 MPV 10.6 Neut % (Auto) 93.0 H Lymph % (Auto) 3.1 L [place] % (Auto) 2.9 Eos % (Auto) 0.1 L Baso % (Auto) 0.1 L Neut # (Auto) 22.9 H Lymph # (Auto) 0.8 L [place] # (Auto) 0.7 Eos # (Auto) 0.0 Baso # (Auto) 0.0 Abs Immat Gran (auto) 0.19 H Seg Neuts % (Manual) Band Neutrophils % Lymphocytes % (Manual) Monocytes % (Manual) Eosinophils % (Manual) Basophils % (Manual) Imm/Tot Granulo (auto) 0.8 H Neutrophils # (Manual) Band Neutrophils # Lymphocytes # (Manual) Monocytes # (Manual) Eosinophils # (Manual) Basophils # (Manual) Anisocytosis Sodium 139 Potassium 3.5 Chloride 99 Carbon Dioxide 25.9 Anion Gap 17.6 BUN 22.0 H Creatinine 1.51 H Est GFR ( Amer) 56 L Est GFR (Non-Af Amer) 46 L BUN/Creatinine Ratio 14.6 Glucose 123 H Lactate 2.9 H* 6.0 H* 1.4 Calcium 9.5 Total Bilirubin 0.5 AST 11 L ALT 11 L Alkaline Phosphatase 182 H Troponin I High Sens NT-Pro-B Natriuret Pep Total Protein 8.6 H Albumin 3.1 L Globulin 5.5 Albumin/Globulin Ratio 0.6 Lipase Urine Color Urine Clarity Urine pH Ur Specific [place] Urine Protein Urine Glucose (UA) Urine Ketones Urine Occult Blood Urine Nitrite Urine Bilirubin Urine Urobilinogen Ur Leukocyte Esterase Urine RBC Urine WBC Ur Squamous Epith Cells Urine Crystals Urine Bacteria Urine Casts Hyaline Casts Urine Mucus Urine Sperm 12/12/24 12/12/24 13:30 13:16 WBC 26.0 H RBC 4.47 L Hgb 15.2 Hct 44.8 MCV 100.2 H MCH 34.0 MCHC 33.9 RDW 14.6 Plt Count 213 MPV 10.3 Neut % (Auto) Lymph % (Auto) [place] % (Auto) Eos % (Auto) Baso % (Auto) Neut # (Auto) Lymph # (Auto) [place] # (Auto) Eos # (Auto) Baso # (Auto) Abs Immat Gran (auto) Seg Neuts % (Manual) 90.0 H Band Neutrophils % 2.0 Lymphocytes % (Manual) 4.0 L Monocytes % (Manual) 4.0 Eosinophils % (Manual) 0.0 L Basophils % (Manual) 0.0 L Imm/Tot Granulo (auto) Neutrophils # (Manual) 23.40 H Band Neutrophils # 0.5 H Lymphocytes # (Manual) 1.04 L Monocytes # (Manual) 1.04 H Eosinophils # (Manual) 0.00 Basophils # (Manual) 0.00 Anisocytosis 1+ Sodium 137 Potassium 4.0 Chloride 100 Carbon Dioxide 26.9 Anion Gap 14.1 BUN 17.0 Creatinine 1.40 H Est GFR ( Amer) >60 Est GFR (Non-Af Amer) 51 L BUN/Creatinine Ratio 12.1 Glucose 105 Lactate Calcium 9.0 Total Bilirubin 0.8 AST 14 L ALT 17 Alkaline Phosphatase 172 H Troponin I High Sens 25.2 NT-Pro-B Natriuret Pep 4805.0 H* Total Protein 7.9 Albumin 3.1 L Globulin 4.8 Albumin/Globulin Ratio 0.6 Lipase 14.0 L Urine Color Dk. orange Urine Clarity Clear Urine pH 5.5 Ur Specific [place] >=1.030 A Urine Protein 100 A Urine Glucose (UA) Negative Urine Ketones Trace A Urine Occult Blood Moderate A Urine Nitrite Negative Urine Bilirubin Small A Urine Urobilinogen 1.0 Ur Leukocyte Esterase Negative Urine RBC 2-5 A Urine WBC 2-5 A Ur Squamous Epith Cells Rare Urine Crystals None seen Urine Bacteria Trace A Urine Casts Seen A Hyaline Casts Many Urine Mucus Large A Urine Sperm Seen Discharge Plan Discharge Disposition: Xfer Acute Care Hospital Condition: Good Discharge location: [facility]
[2024-12-13 13:45] LABS: Lactate/Lactic Acid 1.1 mmol/L (0.4-2.0)
--- NOTE | 2024-12-13 15:53 | PC.NURSE ---
Report given to Misty at [facility]
== END 2024-12-13 15:45 | disposition short-term general hospital (02) | DRG 393 ==
LOC: ER 15:58 → MS 17:09
PROVIDERS: Nurse Practitioner Family; Admitting Provider Family Medicine; Emergency Provider Emergency Medicine; PCP Family Medicine; Visit Provider Family Medicine
DX: K55.9 Vascular disorder of intestine, unspecified (principal); A41.9 Sepsis, unspecified organism; J18.9 Pneumonia, unspecified organism; R65.20 Severe sepsis without septic shock; N17.9 Acute kidney failure, unspecified; K56.600 Partial intestinal obstruction, unspecified as to cause; N30.01 Acute cystitis with hematuria; J44.0 Chronic obstructive pulmonary disease with (acute) lower respiratory infection; R09.02 Hypoxemia; F51.01 Primary insomnia; I50.9 Heart failure, unspecified; E78.5 Hyperlipidemia, unspecified; J43.1 Panlobular emphysema; F41.1 Generalized anxiety disorder; F17.200 Nicotine dependence, unspecified, uncomplicated; I25.10 Atherosclerotic heart disease of native coronary artery without angina pectoris; Z79.899 Other long term (current) drug therapy; Z79.82 Long term (current) use of aspirin; Z79.51 Long term (current) use of inhaled steroids
CPT/HCPCS: 36415; 71045; 71250; 74018; 74177; 80053; 81001; 83605; 83690; 83880; 84484; 85007; 85025; 85027; 87040; 87045; 87046; 87086; 87427; 87493; 87804; 87811; 94640; 94667; 94761; 96361; 96365; 96375; 97165; 97535; 99285; 99406; J1836; J2405; J2543; J2919; J3010; J3370; Q9967